=== PATIENT | female | born 1965 | race Caucasian/White ===

== ENCOUNTER → 2020-08-20 16:29 | Outpatient (BNVA) | payer OTHER, SELFPAY | PROVIDERS: PCP Internal Medicine; Visit Provider Physician Assistant Medical | DX: Z13.89 Encounter for screening for other disorder (principal) | CPT/HCPCS: 99213 ==

== ENCOUNTER 2020-08-23 14:31 | Outpatient (REF) | payer BC, SELFPAY ==
--- NOTE | 2020-08-23 | US_ITS ---
EXAMINATION: US RETROPERITONEAL LIMITED (RENAL ONLY) CLINICAL INFORMATION: Renal calculi. COMPARISON: Renal ultrasound dated 01/09/2020 TECHNIQUE: Real-time imaging of the kidneys. FINDINGS: RIGHT KIDNEY: 10.1 x 4.5 x 4.5 cm (SAG x AP x TRV). The kidney is normal in size, contour, and echogenicity. Renal cortical thickness is normal. No focal parenchymal lesions. 3 mm mm echogenic focus in the upper pole; 4 mm echogenic focus in the midpole; 4 mm echogenic focus in the lower pole, probably reflecting nonobstructing calculi. Mild right hydronephrosis. LEFT KIDNEY: 10.6 x 4.3 x 4.2 cm (SAG x AP x TRV). The kidney is normal in size, contour, and echogenicity. Renal cortical thickness is normal. No focal parenchymal lesions or hydronephrosis. Upper pole 3 mm, midpole 5 mm, lower pole small echogenic focus, probably reflecting nonobstructing renal calculi. No hydronephrosis. US/US renal BI IMPRESSION: Multiple bilateral renal calculi. There is mild right hydronephrosis, similar to previous.
== END 2020-08-23 14:32 | disposition home or self-care (01) ==
LOC: HO.US 14:31
PROVIDERS: Visit Provider Urology
DX: N13.2 Hydronephrosis with renal and ureteral calculous obstruction (principal)
CPT/HCPCS: 76775

== ENCOUNTER → 2020-09-16 13:54 | Outpatient (BNVA) | payer SELFPAY | PROVIDERS: Visit Provider Urology | DX: Z76.89 Persons encountering health services in other specified circumstances (principal) ==

== ENCOUNTER → 2020-10-21 16:11 | Outpatient (BNVA) | payer OTHER, SELFPAY | PROVIDERS: PCP Internal Medicine; Visit Provider Physician Assistant Medical | DX: Z13.89 Encounter for screening for other disorder (principal) | CPT/HCPCS: 99213 ==

== ENCOUNTER 2020-12-14 17:40 | Emergency (ER) | payer BC, SELFPAY ==
[2020-12-14 18:31] VITALS: BP 137/82; PULSE 57; RESP 15; TEMP 36.8; O2SAT 99; BMI 28.6
== END 2020-12-14 20:27 | disposition left against medical advice (07) ==
PROVIDERS: Emergency Provider Emergency Medicine; PCP Internal Medicine
DX: Z86.718 Personal history of other venous thrombosis and embolism (principal)
CPT/HCPCS: 99281; 99282

== ENCOUNTER 2020-12-15 09:11 | Outpatient (REF) | payer BC, SELFPAY ==
--- NOTE | ~2020-12-15 | US_ITS ---
EXAMINATION: US VENOUS ULTRASOUND WITH DOPPLER LOWER EXTREMITY, RIGHT CLINICAL INFORMATION: Right knee pain COMPARISON: None TECHNIQUE: Ultrasound of the deep veins is performed from the hip to the calf with compression sonography and color and pulse Doppler assessment. Spectral analysis with color-flow imaging is performed. FINDINGS: There is normal venous compression and respiratory variation and augmented flow. The visualized common femoral vein, superficial femoral vein, profunda femoral vein, popliteal vein, and the trifurcation region shows no evidence of deep venous thrombosis. There is no significant popliteal fossa cyst. No popliteal artery aneurysm. If the patient's symptoms persist, followup ultrasound in 5 days 7 days might be of value to exclude proximal propagation from a non-visualized calf vein. US/US venous duplex LE RT IMPRESSION: No acute DVT demonstrated in the right lower extremity.
--- NOTE | ~2020-12-15 | US_ITS ---
EXAMINATION: US SOFT TISSUE NECK CLINICAL INFORMATION: Localized swelling, mass and lump COMPARISON: None TECHNIQUE: Ultrasound of the right neck soft tissues is performed with high- frequency teixeira-scale imaging and color Doppler. FINDINGS: No lymphadenopathy is seen. No solid or cystic soft tissue mass is seen. US/US soft tiss head and/or neck IMPRESSION: No abnormality seen by ultrasound.
--- NOTE | ~2020-12-15 | XR_ITS ---
EXAMINATION: XR KNEE, RIGHT CLINICAL INFORMATION: Right knee pain mass and lump about the neck. COMPARISON: None TECHNIQUE: Four views of the right knee. Ultrasound soft tissue neck study of the head/neck FINDINGS: There is no evidence of acute fracture or dislocation of the right knee. There are some regions of mixed lucency and sclerosis seen about the distal femur and proximal tibia which appear to be postoperative in nature. Joint spaces are maintained. No effusion is seen. There is mild spurring at the patellofemoral joint. There is mild spurring about the medial joint space compartment. Targeted ultrasound evaluation of the right neck in area indicated by the patient did not show any evidence of abnormal lymph nodes or masses. Internal jugular vein is patent. Internal carotid artery is patent. XR/XR knee RT 4V IMPRESSION: Postsurgical change of the right knee with mild degenerative changes as described. No right neck ultrasound abnormality appreciated.
== END 2020-12-15 09:12 | disposition home or self-care (01) ==
LOC: HO.HMGCX 09:11
PROVIDERS: Visit Provider Nurse Practitioner Family
DX: M25.461 Effusion, right knee (principal); M25.561 Pain in right knee; R22.1 Localized swelling, mass and lump, neck; Z86.718 Personal history of other venous thrombosis and embolism
CPT/HCPCS: 73564; 76536; 93971

== ENCOUNTER → 2021-02-02 14:31 | Outpatient (BNVA) | payer OTHER, SELFPAY | PROVIDERS: PCP Internal Medicine; Visit Provider Physician Assistant Medical | DX: Z13.89 Encounter for screening for other disorder (principal) | CPT/HCPCS: 99213 ==

== ENCOUNTER 2021-02-14 15:43 | Outpatient (REF) | payer BC, SELFPAY ==
--- NOTE | ~2021-02-14 | MM_ITS ---
EXAMINATION: MM SCREENING DIGITAL BREAST TOMOSYNTHESIS, BILATERAL CLINICAL INFORMATION: Screening. Asymptomatic. The lifetime risk of breast cancer based on the Tyrer-Cuzick Model is 15%. COMPARISON: Mammography: 09/26/2018; outside mammography 04/03/2018, 03/25/2018 ([facility]); and mammography 02/21/2017 and 10/25/2011 TECHNIQUE: Digital breast tomosynthesis is performed in both the craniocaudal and mediolateral oblique views along with computer-aided detection (CAD). Synthesized 2D images are generated from the tomosynthesis. Additional left MLO view is provided. FINDINGS: The breasts are heterogeneously dense, which may obscure small masses (ACR BI-RADS breast composition Category c). There are no significant masses, abnormal calcifications, or other abnormalities. There is no developing density or interval mass or architectural abnormality. The axilla and skin contours are unremarkable. No significant changes. MM/MM tomosynthesis screening BI IMPRESSION: No mammographic evidence of malignancy. ASSESSMENT: BI-RADS 1: Negative RECOMMENDATION: Routine annual mammography screening. This patient's information was entered into a reminder system with a target due date for their next mammogram.
== END 2021-02-14 15:44 | disposition home or self-care (01) ==
LOC: HO.MAMMO 15:43
PROVIDERS: PCP Internal Medicine; Visit Provider Internal Medicine
DX: Z12.31 Encounter for screening mammogram for malignant neoplasm of breast (principal)
CPT/HCPCS: 77063; 77067

== ENCOUNTER → 2021-04-15 10:58 | Outpatient (BNVA) | payer OTHER, SELFPAY | PROVIDERS: PCP Internal Medicine; Visit Provider Physician Assistant Medical | DX: Z13.89 Encounter for screening for other disorder (principal) | CPT/HCPCS: 99213 ==

== ENCOUNTER 2021-04-15 14:29 | Outpatient (REF) | payer BC, SELFPAY ==
--- NOTE | ~2021-04-15 | US_ITS ---
EXAMINATION: US RETROPERITONEAL LIMITED (RENAL ONLY) CLINICAL INFORMATION: Calculus of kidney. COMPARISON: Renal ultrasound 08/23/2020 and 01/09/2020. CT abdomen and pelvis 06/06/2018. KUB 01/23/2018 and 01/02/2018. TECHNIQUE: Real-time imaging of the kidneys. FINDINGS: RIGHT KIDNEY: 10.0 x 5.2 x 5.0 cm (SAG x AP x TRV). The kidney is normal in size and contour. Renal cortical thickness is normal. No focal parenchymal lesions or hydronephrosis. There are echogenic foci seen in the mid pole, lower pole, and upper pole with mid pole and lower pole echogenic regions measuring approximately 2 mm in diameter and with an upper pole echogenic focus measuring approximately 3 mm in diameter. These are nonobstructing echogenic foci, and likely represent calculi. There is mild fullness of the right upper collecting system but without definite hydronephrosis appreciated. Appearance is unchanged. LEFT KIDNEY: 10.1 x 4.0 x 4.1 cm (SAG x AP x TRV). The kidney is normal in size, contour, and echogenicity. Renal cortical thickness is normal. No focal parenchymal lesions or hydronephrosis. 3 mm echogenic focus is seen within the mid pole as well as a 2 mm echogenic focus within the mid pole, likely representing nonobstructing calculi. US/US renal BI IMPRESSION: Bilateral nephrolithiasis with mild fullness of the right upper collecting system, similar to previous studies.
== END 2021-04-15 14:30 | disposition home or self-care (01) ==
LOC: HO.HMGCX 14:29
PROVIDERS: PCP Internal Medicine; Visit Provider Urology
DX: N20.0 Calculus of kidney (principal)
CPT/HCPCS: 76775

== ENCOUNTER → 2021-05-24 11:09 | Outpatient (BNVA) | payer BC, SELFPAY | PROVIDERS: PCP Internal Medicine; Visit Provider Urology ==

== ENCOUNTER → 2021-07-20 14:56 | Outpatient (BNVA) | payer OTHER, SELFPAY | PROVIDERS: PCP Internal Medicine; Visit Provider Physician Assistant Medical | DX: Z13.89 Encounter for screening for other disorder (principal) | CPT/HCPCS: 99213 ==

== ENCOUNTER 2021-09-05 | Outpatient (REF) | payer BC, SELFPAY | END 2021-09-05 00:01 | disposition home or self-care (01) | LOC: HO.LAB | PROVIDERS: Visit Provider Internal Medicine | DX: Z13.89 Encounter for screening for other disorder (principal) | CPT/HCPCS: C9803; U0003; U0005 ==

== ENCOUNTER 2021-11-11 14:17 | Outpatient (REF) | payer BC, SELFPAY ==
--- NOTE | ~2021-11-11 | US_ITS ---
EXAMINATION: US RETROPERITONEAL LIMITED (RENAL ONLY) CLINICAL INFORMATION: Calculus of kidney. COMPARISON: US retroperitoneal limited (renal only) 04/15/2021 and 08/23/2020. XR abdomen KUB 12/27/2016 and 05/24/2016. CT abdomen and pelvis without contrast 06/06/2018. TECHNIQUE: Real-time imaging of the kidneys. FINDINGS: RIGHT KIDNEY: 8.7 x 3.6 x 4.5 cm (SAG x AP x TRV). There is renal cortical thinning or scarring. There are multiple 2 stones measuring 3 mm in the midpole. There is mild fullness of the renal pelvis. This is similar to previous exams. No focal parenchymal lesions or hydronephrosis. LEFT KIDNEY: 9.9 x 4.6 x 4.6 cm (SAG x AP x TRV). The kidney is normal in size, contour, and echogenicity. Renal cortical thickness is normal. There are 3 stones measuring 2 to 3 mm in the midpole. No focal parenchymal lesions or hydronephrosis. US/US renal BI IMPRESSION: Right renal cortical thinning or scarring. Small bilateral renal stones.
== END 2021-11-11 14:18 | disposition home or self-care (01) ==
LOC: HO.HMGCX 14:17
PROVIDERS: PCP Internal Medicine; Visit Provider Urology
DX: N20.0 Calculus of kidney (principal); N28.89 Other specified disorders of kidney and ureter
CPT/HCPCS: 76775

== ENCOUNTER → 2021-11-18 08:45 | Outpatient (BNVA) | payer BC, SELFPAY | PROVIDERS: PCP Internal Medicine; Visit Provider Urology ==

== ENCOUNTER 2021-12-06 13:53 | Outpatient (REF) | payer OTHER, SELFPAY | END 2021-12-06 13:54 | disposition home or self-care (01) | LOC: WCCF 13:53 | PROVIDERS: PCP Internal Medicine; Visit Provider Physician Assistant Medical | DX: Z13.89 Encounter for screening for other disorder (principal) | CPT/HCPCS: 99213 ==

== ENCOUNTER 2021-12-07 09:57 | Outpatient (REF) | payer OTHER, SELFPAY ==
--- NOTE | ~2021-12-07 | US_ITS ---
EXAMINATION: US VENOUS ULTRASOUND WITH DOPPLER LOWER EXTREMITY, LEFT CLINICAL INFORMATION: Left leg pain. COMPARISON: None TECHNIQUE: Ultrasound of the deep veins is performed from the hip to the calf with compression sonography and color and pulse Doppler assessment. Spectral analysis with color-flow imaging is performed. FINDINGS: There is normal venous compression and respiratory variation and augmented flow. The visualized common femoral vein, superficial femoral vein, profunda femoral vein, popliteal vein, and the trifurcation region shows no evidence of deep venous thrombosis. There is no significant popliteal fossa cyst. If the patient's symptoms persist, followup ultrasound in 5 days 7 days might be of value to exclude proximal propagation from a non-visualized calf vein. US/US venous duplex LE LT IMPRESSION: No DVT demonstrated in the left lower extremity.
== END 2021-12-07 09:58 | disposition home or self-care (01) ==
LOC: HO.HMGCX 09:57
PROVIDERS: Visit Provider Physician Assistant
DX: M79.605 Pain in left leg (principal)
CPT/HCPCS: 93971

== ENCOUNTER 2022-04-09 10:09 | Emergency (ER) | payer BC, SELFPAY ==
--- NOTE | ~2022-04-09 | US_ITS ---
EXAMINATION: US PELVIS CLINICAL INFORMATION: Right lower quadrant, suprapubic abdominal pain. COMPARISON: CT of the abdomen and pelvis done earlier today. TECHNIQUE: Ultrasound of the pelvis is performed using both transabdominal and transvaginal transducers along with Doppler. Transvaginal imaging is performed due to inadequate visualization transabdominally. FINDINGS: Uterus: The uterus is anteverted and measures 7.2 x 3.4 x 4.7 cm. The cervix is closed, shows nonspecific linear echogenicities, may represent calcifications. The double wall endometrial thickness is 0.4 mm. The uterus is smooth in contour and has normal myometrial echogenicity. Solitary subcentimeter echogenic mass is identified to the left of the midline at the superior part of the body of the uterus, measures 0.7 x 0.7 x 0.7 cm, most consistent with a fibroid. Adnexa: Both ovaries are visualized. There is normal color flow to the adnexa. There is no ovarian torsion. There is no pelvic ascites or fluid collection. Right ovary measures 2.7 x 1.6 x 2.1 cm. 4.8 mL Left ovary measures 2.0 x 1.4 x 1.5 cm. 2.2 mL Both arterial as well as venous flow to both ovaries are well-maintained. US/US pelvic complete IMPRESSION: 1. Linear echogenic focus within the cervix which may represent calcifications. In addition, solitary subcentimeter echogenic mass is also identified within the uterus, most consistent with a fibroid., Otherwise unremarkable sonographic appearance of the uterus. 2. Morphologically unremarkable bilateral ovaries. 3. No evidence of any free fluid within the pelvis.
--- NOTE | ~2022-04-09 | US_ITS ---
EXAMINATION: US PELVIS CLINICAL INFORMATION: Right lower quadrant, suprapubic abdominal pain. COMPARISON: CT of the abdomen and pelvis done earlier today. TECHNIQUE: Ultrasound of the pelvis is performed using both transabdominal and transvaginal transducers along with Doppler. Transvaginal imaging is performed due to inadequate visualization transabdominally. FINDINGS: Uterus: The uterus is anteverted and measures 7.2 x 3.4 x 4.7 cm. The cervix is closed, shows nonspecific linear echogenicities, may represent calcifications. The double wall endometrial thickness is 0.4 mm. The uterus is smooth in contour and has normal myometrial echogenicity. Solitary subcentimeter echogenic mass is identified to the left of the midline at the superior part of the body of the uterus, measures 0.7 x 0.7 x 0.7 cm, most consistent with a fibroid. Adnexa: Both ovaries are visualized. There is normal color flow to the adnexa. There is no ovarian torsion. There is no pelvic ascites or fluid collection. Right ovary measures 2.7 x 1.6 x 2.1 cm. 4.8 mL Left ovary measures 2.0 x 1.4 x 1.5 cm. 2.2 mL Both arterial as well as venous flow to both ovaries are well-maintained. US/US pelvic ovarian doppler IMPRESSION: 1. Linear echogenic focus within the cervix which may represent calcifications. In addition, solitary subcentimeter echogenic mass is also identified within the uterus, most consistent with a fibroid., Otherwise unremarkable sonographic appearance of the uterus. 2. Morphologically unremarkable bilateral ovaries. 3. No evidence of any free fluid within the pelvis.
--- NOTE | ~2022-04-09 | CT_ITS ---
EXAMINATION: CT ABDOMEN AND PELVIS WITHOUT CONTRAST CLINICAL INFORMATION: Kidney pain. COMPARISON: CT scans dating between June 06, 2018 and December 07, 2008. TECHNIQUE: Multidetector volumetric imaging was performed from the superior aspect of the liver through the pubic symphysis. Sagittal and coronal reformatted images were obtained on the technologist's workstation. This CT examination was performed using dose optimization techniques as appropriate, variously including the following: *Automated exposure control *Adjustment of mA and/or kV according to patient size (this includes techniques or standardized protocols for targeted exams where dose is matched to indication/reason for exam; i.e. extremities or head) *Use of iterative reconstruction technique DLP: 588 mGy-cm FINDINGS: LUNG BASES: The lung bases appear clear, with no evidence of inflammation or nodules. LIVER, GALLBLADDER, AND BILIARY TREE: One or 2 subcentimeter benign simple hepatic cysts and/or hemangiomata, unchanged over almost 4 years. The liver otherwise appears unremarkable in size, shape, and attenuation. No suspicious focal hepatic lesion or biliary ductal dilatation is appreciated. Status post cholecystectomy. PANCREAS: Unremarkable SPLEEN: Unremarkable ADRENAL GLANDS: Unremarkable KIDNEYS AND URETERS: Similar appearance of bilateral renal cortical scars and punctate nonobstructing collecting system and/or papillary calcifications, right more than left. No hydronephrosis or hydroureter. BLADDER: Collapsed, therefore poorly evaluated. Grossly unremarkable. GASTROINTESTINAL TRACT/MESENTERY: Diverticulosis predominantly involving the sigmoid and descending colon, without evidence of diverticulitis. Normal-appearing distal ileum. No evidence of appendicitis. Mild, nonspecific griselda mesentery, with associated subcentimeter nodes, not significantly changed compared with May 2018. ABDOMINAL WALL: No significant hernia is appreciated. LYMPH NODES: No evidence of adenopathy by size criteria. VASCULAR: Unremarkable PELVIC VISCERA: Unremarkable OSSEOUS STRUCTURES: Unremarkable CT/CT abdomen pelvis wo con IMPRESSION: No acute finding. Similar appearance of bilateral renal cortical scars and punctate nonobstructing collecting system and/or papillary calcifications, right more than left, compared with most recent prior study dated June 06, 2018. No hydronephrosis or hydroureter.
--- NOTE | ~2022-04-09 | US_ITS ---
EXAMINATION: US PELVIS CLINICAL INFORMATION: Right lower quadrant, suprapubic abdominal pain. COMPARISON: CT of the abdomen and pelvis done earlier today. TECHNIQUE: Ultrasound of the pelvis is performed using both transabdominal and transvaginal transducers along with Doppler. Transvaginal imaging is performed due to inadequate visualization transabdominally. FINDINGS: Uterus: The uterus is anteverted and measures 7.2 x 3.4 x 4.7 cm. The cervix is closed, shows nonspecific linear echogenicities, may represent calcifications. The double wall endometrial thickness is 0.4 mm. The uterus is smooth in contour and has normal myometrial echogenicity. Solitary subcentimeter echogenic mass is identified to the left of the midline at the superior part of the body of the uterus, measures 0.7 x 0.7 x 0.7 cm, most consistent with a fibroid. Adnexa: Both ovaries are visualized. There is normal color flow to the adnexa. There is no ovarian torsion. There is no pelvic ascites or fluid collection. Right ovary measures 2.7 x 1.6 x 2.1 cm. 4.8 mL Left ovary measures 2.0 x 1.4 x 1.5 cm. 2.2 mL Both arterial as well as venous flow to both ovaries are well-maintained. US/US transvaginal IMPRESSION: 1. Linear echogenic focus within the cervix which may represent calcifications. In addition, solitary subcentimeter echogenic mass is also identified within the uterus, most consistent with a fibroid., Otherwise unremarkable sonographic appearance of the uterus. 2. Morphologically unremarkable bilateral ovaries. 3. No evidence of any free fluid within the pelvis.
[2022-04-09 10:48] VITALS: BP 152/88; PULSE 88; RESP 17; TEMP 36.6; O2SAT 97; BMI 26.2
[2022-04-09 11:34] LABS: MANUAL DIFF FLAG NO
[2022-04-09 11:36] LABS: Basophils Percent Auto 0.6 % (0-2); Eosinophils Absolute Auto 0.1 X10*3/uL (0.0-0.4); Eosinophils Percent Auto 1.6 % (0-4); Hematocrit 44.3 % (37.0-47.0); Hemoglobin 14.4 g/dl (12.0-16.0); Imm Gran Abs Auto 0.01 X10*3/uL (0.00-0.03); Imm Gran Pct Auto 0.2 % (0.0-0.4); Lymphocytes Absolute Auto 1.1 X10*3/uL (1.2-4.9); Lymphocytes Percent Auto 20.8 % (20-40); Mean Corpuscular HGB Conc 32.5 g/dl (31.0-35.0); Mean Corpuscular Hemoglobin 29.4 pg (27.0-33.0); Mean Corpuscular Volume 90.6 fL (80.0-98.0); Mean Platelet Volume 9.5 fL (9.4-12.3); Monocytes Absolute Auto 0.4 X10*3/uL (0.1-1.2); Monocytes Percent Auto 7.4 % (2-11); Neutrophils Absolute Auto 3.6 x10*3/uL (2.0-8.3); Neutrophils Percent Auto 69.4 % (45-73); Platelet Count 192 X10*3/uL (160-400); Red Blood Count 4.89 X10*6/uL (4.20-5.50); Red Cell Distribution Width 12.7 % (11.0-16.0); White Blood Count 5.1 X10*3/uL (4.8-10.8)
[2022-04-09 11:53] LABS: Alanine Aminotransferase 19 U/L (0-31); Albumin Level 4.6 g/dL (3.5-5.0); Alkaline Phosphatase 84 U/L (39-117); Anion Gap 14 (12-20); Aspartate Amino Transferase 17 U/L (5-31); Bilirubin Total 0.5 mg/dL (0.0-1.0); Blood Urea Nitrogen 18 mg/dL (9-16); Calcium 9.6 mg/dL (8.4-10.2); Carbon Dioxide 27 mmol/L (22-29); Chloride 104 mmol/L (96-108); Creatinine Clr Calc Pharmacy 43.1; Estimated Glomerular Filt Rate 37; Glucose Random 94 mg/dL (60-115); Potassium 4.2 mmol/L (3.3-5.1); Sodium 141 mmol/L (135-145); Total Protein 7.2 g/dL (6.5-8.0)
--- NOTE | 2022-04-09 12:36 | ED_ITS ---
HPI - Abdominal Pain General Chief Complaint: General Medical Stated Complaint: Kidney stone Time Seen by Provider: 04/09/22 10:58 Source: patient Mode of arrival: ambulatory Limitations: no limitations History of Present Illness HPI narrative: 56-year-old female with a past medical history of DVT, CKD, medullary sponge kidney disease, and kidney stones being followed by Urology who has had stents and lithotripsy in the past presenting to the ED with complaints of ?kidney pain?. She reports that she started developing a suprapubic abdominal pain/bilateral flank pain/lower back pain on and she feels like it is not her normal kidney pain. She reports associated nausea, chest congestion/chest discomfort/sob and cough along with ear pain. She reports that the chest discomfort/SOB has resolved. She denies any fevers, chills, dizziness, headaches, sore throat, trouble swallowing or breathing, dyspnea on exertion, orthopnea, palpitations, paresthesias, dysuria, hematuria, abnormal vaginal discharge, black or bloody stools, recent travel or sick contacts, rashes, lower extremity edema, calf tenderness, recent falls or any other symptoms complaints or concerns at this time. MD elicited complaint: abdominal pain and flank pain Pertinent past history: kidney stones Onset (ago): day(s) (3) Pain Consistency: constant Location: L flank, R flank and suprapubic Severity: moderate Quality: aching Radiation: back Exacerbating factors: nothing Relieving factors: nothing Context: other (History of CKD and kidney stones) Associated symptoms: nausea Related Data Home Medications Medication Instructions Recorded Confirmed sertraline 50 mg tablet 50 mg PO DAILY 09/16/20 11/18/21 gabapentin 100 mg capsule mg PO 12/14/20 11/18/21 norethindrone (contraceptive) 0.35 0.35 mg PO DAILY 12/14/20 11/18/21 mg tablet tamsulosin 0.4 mg capsule 0.4 mg PO BEDTIME 12/14/20 11/18/21 tramadol 50 mg tablet 50 mg PO PRN 12/14/20 11/18/21 cyclobenzaprine 10 mg tablet 10 mg PO BEDTIME 05/24/21 11/18/21 Previous Rx's Medication Instructions Recorded terazosin 1 mg capsule 1 mg PO BEDTIME 30 days #30 caps 09/16/20 prednisone 20 mg tablet 20 mg PO DAILY 9 days #18 tabs 12/15/20 ondansetron HCl 4 mg tablet 4 mg PO Q8H PRN nausea and 04/13/21 (Zofran) vomiting 5 days #15 tabs allopurinol 100 mg tablet 100 mg PO DAILY 90 days #90 tabs 05/24/21 pyridoxine (vitamin B6) 100 mg 100 mg PO DAILY 90 days #90 tabs 05/24/21 tablet ondansetron 4 mg disintegrating 4 mg PO Q8H #14 tabs 04/09/22 tablet oxycodone 5 mg tablet 5 mg PO Q6H PRN pain #14 tabs 04/09/22 Allergies Allergy/AdvReac Type Severity Reaction Status Date / Time metoclopramide [From Reglan] Allergy Severe CONVULSIONS Verified 12/07/21 08:11 bee pollen [BEE STINGS] Allergy Intermediate SWELLING Verified 12/07/21 08:11 Iodinated Contrast Media Allergy Intermediate HIVES Verified 12/07/21 08:11 [IV Dye, Iodine Containing] amoxicillin Allergy Unknown unknown Verified 12/07/21 08:11 Cephalosporins AdvReac Intermediate VOMITING Verified 12/07/21 08:11 erythromycin base AdvReac Intermediate VOMITING Verified 12/07/21 08:11 [Erythromycin Base] Penicillins AdvReac Intermediate VOMITING Verified 12/07/21 08:11 Review of Systems Review of Systems Constitutional : No Fever, No Chills, No Night Sweats, + Fatigue, + Malaise Cardiovascular : No Chest Pain, No SOB Respiratory : + Cough, No Sputum, No Wheezing, No Dyspnea Gastrointestinal : + Nausea, + abdominal pain, + Flank pain, No Vomiting, No D iarrhea, No Hematochezia, No Melena Genitourinary : + Flank pain, No irregular bleeding, No Dysuria, No Urinary Frequency, No Hematuria,No Urinary Incontinence, No Urgency Musculoskeletal : No joint pain, + Myalgias, No Joint Swelling Skin : No Skin Lesions, No rash Neuro : No Weakness, No Numbness, No Paresthesias, No Loss of Consciousness, No Dizziness, No Headache Heme/Lymph: No Lymphadenopathy Endocrine : No Temperature Intolerance Yes all other systems are reviewed and are negative PMFSH Past Medical History Attestation statement: The following information was validated with the patient. Source: old records reviewed and nursing notes reviewed Medical History Chronic kidney disease DVT (deep venous thrombosis) Surgical History History of ankle surgery Social History Social History Advance Directives: Yes Advance Directives Information Provided: Yes Advance Directives on File: No Physical Exam ED Vital Signs: Vital Signs - 24 hr 04/09/22 10:48 Temperature 98 F Pulse Rate 88 Respiratory Rate 17 Blood Pressure 152/88 H Pulse Oximetry 97 Oxygen Delivery Method Room Air BMI result Body Mass Index 26.2 vital signs have been reviewed as normal and appeared to be correct. Blood pressure 152/88. Heart rate normal. Respiration rate normal. Temperature normal. Oxygen saturation normal. Appearance: Alert. Oriented X3. No acute distress. Head: Normal external exam. Normocephalic. Atraumatic. Eyes: PERRLA. EOMI. Conjunctiva and sclera normal. Eyelids normal. ENT: EAC normal. TM's Normal. Pharynx normal. Uvula midline. Moist mucous membranes. No lesions/ulcerations or masses noted on the tongue. Normal voice. No trismus noted. No drooling noted. No muffled voice noted. Neck: Normal inspection. Neck supple. FROM. No adenopathy. Thyroid Normal. No tracheal deviation noted. No crepitus is noted. No meningeal signs. CVS: Normal heart rate and rhythm. Heart sound normal. Pulses normal throughout. No murmurs/rales/gallops. Respiratory: No respiratory distress. Painless inspiration. Breath sounds normal. No wheezes/rales/rhonchi noted. Chest nontender. No crepitus is noted. No accessory muscle usage noted or decreased air movement noted. Abdomen: Soft and mild ttp to ruq and suprapubic area. Bowel sounds normal in all 4 quadrants. No distention noted. No organomegaly noted. No visible injury noted. Back: + bilateral CVA tenderness. Full range of motion noted. Nontender. No signs of trauma. Patient neuro intact bilaterally and distally on all 4 extremities. Patient's reflexes intact bilaterally and distally on all 4 extremities. No rashes/lesion/induration/fluctuance or signs of infection noted. Skin: Skin warm and dry. Normal skin color. Normal skin turgor. No rashes/lesions/lacerations noted. Extremities: No lower extremity edema. No calf tenderness is noted. Extremities exhibit normal range of motion and nontender. Neuro: Oriented X 3. No motor deficit. No sensory deficit. Reflexes normal. Normal steady gait. No focal neuro deficits noted. CN's II-XII intact bilaterally? Vascular: + radial pulses/+ 2 distal pedal pulses/+2 dorsalis pedis b/l. Normal cap refill. No cyanosis noted to upper extremity nails and lower extremity toes nails. Course Course Course Narrative: 12:30pm - 56-year-old female with a past medical history of DVT, CKD, medullary sponge kidney disease, and kidney stones being followed by Urology who has had stents and lithotripsy in the past presenting to the ED with complaints of ?kidney pain?. She reports that she started developing a suprapubic abdominal pain/bilateral flank pain/lower back pain on and she feels like it is not her normal kidney pain. She reports associated nausea, chest congestion/chest discomfort/sob and cough along with ear pain. She reports that the chest discomfort/SOB has resolved. Labs were obtained while the patient was in triage and patient has chronic CKD which is similar compared to prior BUN 18/creatinine 1.48. Otherwise all other labs are within normal limits. Plan: CT scan of abd/pelvis without contrast. Will order UA. 5 mg of oxycodone and IV fluids and re-evaluate. Reevaluation(s) Reevaluation #1: - urine revealed trace of blood and trace of epithelial cells with 5-9 red blood cells. No nitrates or leukocytes therefore will not treat at this time most likely a dirty catch. - CT scan abdomen pelvis without IV contrast revealed chronic changes no acute processes were noted. - therefore I ordered a duplex ultrasound/pelvic ultrasound revealed possible fibroid otherwise no other acute processes. - therefore I discussed this case with Dr. Garcia he reported that he does not believe her presentation is obgyn hospitalist physician related he reports that the ultrasound is showing a small myoma which is incidental finding and she needs non emergent outpatient follow-up therefore will refer her to OBGYN. Will treat symptomatic instruct to return if any new or worsening symptoms. Patient understands agrees with this plan. Time: 15:50 MDM - Abdominal Pain Medical Records Attestation: I reviewed the patient's medical records. Lab Data Attestation: I reviewed the patient's lab results. Result diagrams: 04/09/22 11:29 04/09/22 11:29 Labs: Lab Results 04/09/22 04/09/22 04/09/22 Range/Units 11:29 11:29 13:01 WBC 5.1 (4.8-10.8) X10*3/uL RBC 4.89 (4.20-5.50) X10*6/uL Hgb 14.4 (12.0-16.0) g/dl Hct 44.3 (37.0-47.0) % MCV 90.6 (80.0-98.0) fL MCH 29.4 (27.0-33.0) pg MCHC 32.5 (31.0-35.0) g/dl RDW 12.7 (11.0-16.0) % Plt Count 192 (160-400) X10*3/uL MPV 9.5 (9.4-12.3) fL Immature Gran % (Auto) 0.2 (0.0-0.4) % Neut % (Auto) 69.4 (45-73) % Lymph % (Auto) 20.8 (20-40) % Pender % (Auto) 7.4 (2-11) % Eos % (Auto) 1.6 (0-4) % Baso % (Auto) 0.6 (0-2) % Lymph # (Auto) 1.1 L (1.2-4.9) X10*3/uL Pender # (Auto) 0.4 (0.1-1.2) X10*3/uL Eos # (Auto) 0.1 (0.0-0.4) X10*3/uL Baso # (Auto) 0.0 (0.0-0.2) X10*3/uL Abs Immat Gran (auto) 0.01 (0.00-0.03) X10*3/uL Absolute Neuts (auto) 3.6 (2.0-8.3) x10*3/uL Absolute Nucleated RBC 0.000 (0.0-0.012) X10*3/uL Nucleated RBC % (auto) 0.0 (0.0-0.2) /100WBC Sodium 141 (135-145) mmol/L Potassium 4.2 (3.3-5.1) mmol/L Chloride 104 (96-108) mmol/L Carbon Dioxide 27 (22-29) mmol/L Anion Gap 14 (12-20) BUN 18 H (9-16) mg/dL Creatinine 1.48 H (0.5-1.4) mg/dL Estim Creat Clear Calc 43.1 Estimated GFR 37 Random Glucose 94 (60-115) mg/dL Calcium 9.6 (8.4-10.2) mg/dL Total Bilirubin 0.5 (0.0-1.0) mg/dL AST 17 (5-31) U/L ALT 19 (0-31) U/L Alkaline Phosphatase 84 (39-117) U/L Total Protein 7.2 (6.5-8.0) g/dL Albumin 4.6 (3.5-5.0) g/dL Urine Color Urine Appearance Urine pH (5.0-8.0) Ur Specific [place] (1.005-1.025) Urine Protein (NEG-TRACE) MG/DL Urine Glucose (UA) (NEG) MG/DL Urine Ketones (NEG) MG/DL Urine Blood (NEG) Urine Nitrite (NEG) Ur Leukocyte Esterase (NEG) Urine RBC (0) /HPF Urine WBC (0-4) /HPF Ur Squamous Epith Cells /LPF Urine Bacteria /LPF COVID-19 (JOSE) Negative (Negative) COVID-19 Clin Com See Note 04/09/22 Range/Units 13:01 WBC (4.8-10.8) X10*3/uL RBC (4.20-5.50) X10*6/uL Hgb (12.0-16.0) g/dl Hct (37.0-47.0) % MCV (80.0-98.0) fL MCH (27.0-33.0) pg MCHC (31.0-35.0) g/dl RDW (11.0-16.0) % Plt Count (160-400) X10*3/uL MPV (9.4-12.3) fL Immature Gran % (Auto) (0.0-0.4) % Neut % (Auto) (45-73) % Lymph % (Auto) (20-40) % Pender % (Auto) (2-11) % Eos % (Auto) (0-4) % Baso % (Auto) (0-2) % Lymph # (Auto) (1.2-4.9) X10*3/uL Pender # (Auto) (0.1-1.2) X10*3/uL Eos # (Auto) (0.0-0.4) X10*3/uL Baso # (Auto) (0.0-0.2) X10*3/uL Abs Immat Gran (auto) (0.00-0.03) X10*3/uL Absolute Neuts (auto) (2.0-8.3) x10*3/uL Absolute Nucleated RBC (0.0-0.012) X10*3/uL Nucleated RBC % (auto) (0.0-0.2) /100WBC Sodium (135-145) mmol/L Potassium (3.3-5.1) mmol/L Chloride (96-108) mmol/L Carbon Dioxide (22-29) mmol/L Anion Gap (12-20) BUN (9-16) mg/dL Creatinine (0.5-1.4) mg/dL Estim Creat Clear Calc Estimated GFR Random Glucose (60-115) mg/dL Calcium (8.4-10.2) mg/dL Total Bilirubin (0.0-1.0) mg/dL AST (5-31) U/L ALT (0-31) U/L Alkaline Phosphatase (39-117) U/L Total Protein (6.5-8.0) g/dL Albumin (3.5-5.0) g/dL Urine Color YELLOW Urine Appearance HAZY Urine pH 6.5 (5.0-8.0) Ur Specific [place] 1.015 (1.005-1.025) Urine Protein NEG (NEG-TRACE) MG/DL Urine Glucose (UA) NEG (NEG) MG/DL Urine Ketones NEG (NEG) MG/DL Urine Blood TRACE (NEG) Urine Nitrite NEG (NEG) Ur Leukocyte Esterase NEG (NEG) Urine RBC 5-9 H (0) /HPF Urine WBC 0-2 (0-4) /HPF Ur Squamous Epith Cells TRACE /LPF Urine Bacteria NONE /LPF COVID-19 (JOSE) (Negative) COVID-19 Clin Com Imaging Data CT scan abdomen pelvis without IV contrast: Attestation: I personally reviewed and interpreted this imaging study as follows: Radiologist's impression: FINDINGS: LUNG BASES: The lung bases appear clear, with no evidence of inflammation or nodules.? LIVER, GALLBLADDER, AND BILIARY TREE: One or 2 subcentimeter benign simple hepatic cysts and/or hemangiomata, unchanged over almost 4 years. The liver otherwise appears unremarkable in size, shape, and attenuation. No suspicious focal hepatic lesion or biliary ductal dilatation is appreciated. Status post cholecystectomy.? PANCREAS: Unremarkable? SPLEEN: Unremarkable? ADRENAL GLANDS: Unremarkable? KIDNEYS AND URETERS: Similar appearance of bilateral renal cortical scars and punctate nonobstructing collecting system and/or papillary calcifications, right more than left. No hydronephrosis or hydroureter. BLADDER: Collapsed, therefore poorly evaluated. Grossly unremarkable.? GASTROINTESTINAL TRACT/MESENTERY: Diverticulosis predominantly involving the sigmoid and descending colon, without evidence of diverticulitis. Normal-appearing distal ileum. No evidence of appendicitis. Mild, nonspecific griselda mesentery, with associated subcentimeter nodes, not significantly changed compared with May 2018. ABDOMINAL WALL: No significant hernia is appreciated.? LYMPH NODES: No evidence of adenopathy by size criteria. VASCULAR: Unremarkable PELVIC VISCERA: Unremarkable OSSEOUS STRUCTURES: Unremarkable? CT/CT abdomen pelvis wo con IMPRESSION: ? No acute finding. ? Similar appearance of bilateral renal cortical scars and punctate nonobstructing collecting system and/or papillary calcifications, right more than left, compared with most recent prior study dated June 06, 2018. No hydronephrosis or hydroureter. Pelvic/Doppler ultrasound: Attestation: I personally reviewed and interpreted this imaging study as follows: Radiologist's impression: FINDINGS: Uterus: The uterus is anteverted and measures 7.2 x 3.4 x 4.7 cm.? The cervix is closed, shows nonspecific linear echogenicities, may represent calcifications. The double wall endometrial thickness is 0.4 mm.? The uterus is smooth in contour and has normal myometrial echogenicity. ? Solitary subcentimeter echogenic mass is identified to the left of the midline at the superior part of the body of the uterus, measures 0.7 x 0.7 x 0.7 cm, most consistent with a fibroid. Adnexa: Both ovaries are visualized. There is normal color flow to the adnexa. There is no ovarian torsion.? There is no pelvic ascites or fluid collection. Right ovary measures 2.7 x 1.6 x 2.1 cm. 4.8 mL Left ovary measures 2.0 x 1.4 x 1.5 cm. 2.2 mL Both arterial as well as venous flow to both ovaries are well-maintained. US/US pelvic ovarian doppler IMPRESSION: ? 1. Linear echogenic focus within the cervix which may represent calcifications. In addition, solitary subcentimeter echogenic mass is also identified within the uterus, most consistent with a fibroid., Otherwise unremarkable sonographic appearance of the uterus. 2. Morphologically unremarkable bilateral ovaries. 3. No evidence of any free fluid within the pelvis. Discharge Plan Discharge Clinical Impression: CKD (chronic kidney disease), Diverticulosis, Uterine myoma Patient Disposition: Home, Self-Care Instructions: Diverticulosis (ED) Prescriptions: New ondansetron 4 mg tablet,disintegrating 4 mg PO Q8H Qty: 14 0RF oxycodone 5 mg tablet 5 mg PO Q6H PRN (Reason: pain) Qty: 14 0RF Rx Instructions: Partial Fill upon patient request. No Action prednisone 20 mg tablet 20 mg PO DAILY 9 Days Qty: 18 0RF Rx Instructions: 3 tabs/60mg for 3 days 2 tabs/40mg for 3 days 1 tab/20mg for 3 days ondansetron HCl [Zofran] 4 mg tablet 4 mg PO Q8H PRN (Reason: nausea and vomiting) 5 Days Qty: 15 0RF tamsulosin 0.4 mg capsule 0.4 mg PO BEDTIME tramadol 50 mg tablet 50 mg PO PRN norethindrone (contraceptive) 0.35 mg tablet 0.35 mg PO DAILY gabapentin 100 mg capsule PO sertraline 50 mg tablet 50 mg PO DAILY terazosin 1 mg capsule 1 mg PO BEDTIME 30 Days Qty: 30 0RF pyridoxine (vitamin B6) 100 mg tablet 100 mg PO DAILY 90 Days Qty: 90 1RF cyclobenzaprine 10 mg tablet 10 mg PO BEDTIME allopurinol 100 mg tablet 100 mg PO DAILY 90 Days Qty: 90 1RF Referrals: Noe Salcedo MD [Primary Care Provider] - 2 days Kenneth Garcia MD [Physician] - 1 week (Call to make a follow-up appointment within the next 1-2 weeks) Stand Alone Forms: Work/School Release
[2022-04-09] MEDS: 0.9 % Sodium Chloride 1,000 ML 999 ML IVCONT (12:59)
[2022-04-09] MEDS: oxyCODONE HCl Immed Release 5 MG TABLET PO (13:08)
[2022-04-09] MEDS: ondansetron HCL 4 MG/2 ML VIAL IVPUSH (13:15)
[2022-04-09 13:17] LABS: Appearance Urine HAZY; Color Urine YELLOW; Glucose Urine UA NEG (NEG); Leukocyte Esterase Urine NEG (NEG); Nitrite Urine NEG (NEG); PH 6.5 (5.0-8.0); Specific Gravity - Urine 1.015 (1.005-1.025); UACC Culture Trigger NO; Urine Blood TRACE (NEG); Urine Ketones NEG (NEG); Urine Protein NEG (NEG-TRACE)
[2022-04-09 13:31] LABS: COVID-19 Test Negative (Negative)
[2022-04-09 13:33] LABS: Squamous Epithelial Cell Urine TRACE /LPF; WBC Urine 0-2 /HPF (0-4)
[2022-04-09] MEDS: Acetaminophen 325 MG TABLET 975 MG PO (13:40)
--- NOTE | 2022-04-09 15:45 | P.CONOB_ITS ---
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 She reports that the chest discomfort/SOB has resolved.? The workup done emergency room included a CBC which was normal, chemistry which showed creatinine of 1.48, and UA positive for hematuria. CT of abdomen pelvis showed the following: Similar appearance of bilateral renal cortical scars and punctate nonobstructing collecting system and/or papillary calcifications, right more than left, compared with most recent prior study dated June 06, 2018. No hydronephrosis or hydroureter. Pelvic ultrasound showed the followin. Linear echogenic focus within the cervix which may represent calcifications. In addition, solitary subcentimeter echogenic mass is also identified within the uterus, most consistent with a fibroid., Otherwise unremarkable sonographic appearance of the uterus. 2. Morphologically unremarkable bilateral ovaries. 3. No evidence of any free fluid within the pelvis. cc:: CC: OB PMFSH Past Medical History Medical History Chronic kidney disease DVT (deep venous thrombosis) Surgical History Surgical History History of ankle surgery Social History Social History Advance Directives: Yes Advance Directives Information Provided: Yes Advance Directives on File: No Meds Allergies Allergy/AdvReac Type Severity Reaction Status Date / Time metoclopramide [From Reglan] Allergy Severe CONVULSIONS Verified 12/07/21 08:11 bee pollen [BEE STINGS] Allergy Intermediate SWELLING Verified 12/07/21 08:11 Iodinated Contrast Media Allergy Intermediate HIVES Verified 12/07/21 08:11 [IV Dye, Iodine Containing] amoxicillin Allergy Unknown unknown Verified 12/07/21 08:11 Cephalosporins AdvReac Intermediate VOMITING Verified 12/07/21 08:11 erythromycin base AdvReac Intermediate VOMITING Verified 12/07/21 08:11 [Erythromycin Base] Penicillins AdvReac Intermediate VOMITING Verified 12/07/21 08:11 Home Medications Medication Instructions Recorded Confirmed Last Taken Type sertraline 50 mg tablet 50 mg PO DAILY 09/16/20 11/18/21 Unknown History gabapentin 100 mg capsule mg PO 12/14/20 11/18/21 Unknown History norethindrone (contraceptive) 0.35 0.35 mg PO DAILY 12/14/20 11/18/21 Unknown History mg tablet tamsulosin 0.4 mg capsule 0.4 mg PO BEDTIME 12/14/20 11/18/21 Unknown History tramadol 50 mg tablet 50 mg PO PRN 12/14/20 11/18/21 Unknown History cyclobenzaprine 10 mg tablet 10 mg PO BEDTIME 05/24/21 11/18/21 Unknown History 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 Physical Exam Vitals Vital signs: Temp Pulse Resp BP Pulse Ox O2 Del Method 98 F 88 17 152/88 H 97 04/09/22 10:48 04/09/22 10:48 04/09/22 10:48 04/09/22 10:48 04/09/22 10:48 04/09/22 10:48 BMI result Body Mass Index 26.2 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 - Results Labs CBC & Chem 7: 04/09/22 11:29 04/09/22 11:29 Labs: Short CBC 04/09/22 Range/Units 11:29 WBC 5.1 (4.8-10.8) X10*3/uL Hgb 14.4 (12.0-16.0) g/dl Hct 44.3 (37.0-47.0) % Plt Count 192 (160-400) X10*3/uL BMP 04/09/22 11:29 Sodium 141 Potassium 4.2 Chloride 104 Carbon Dioxide 27 BUN 18 H Creatinine 1.48 H Calcium 9.6 Liver Function 04/09/22 Range/Units 11:29 Total Bilirubin 0.5 (0.0-1.0) mg/dL AST 17 (5-31) U/L ALT 19 (0-31) U/L Alkaline Phosphatase 84 (39-117) U/L Albumin 4.6 (3.5-5.0) g/dL Urine 04/09/22 Range/Units 13:01 Urine Color YELLOW Urine Appearance HAZY Urine pH 6.5 (5.0-8.0) Ur Specific [place] 1.015 (1.005-1.025) Urine Protein NEG (NEG-TRACE) MG/DL Urine Glucose (UA) NEG (NEG) MG/DL Imaging CT scan - pelvis: Radiologist's impression: ITS Impressions Abdomen/Pelvis CT 04/09/22 12:50 IMPRESSION: No acute finding. Similar appearance of bilateral renal cortical scars and punctate nonobstructing collecting system and/or papillary calcifications, right more than left, compared with most recent prior study dated June 06, 2018. No hydronephrosis or hydroureter. Doppler Study Ultrasound 04/09/22 14:17 IMPRESSION: 1. Linear echogenic focus within the cervix which may represent calcifications. In addition, solitary subcentimeter echogenic mass is also identified within the uterus, most consistent with a fibroid., Otherwise unremarkable sonographic appearance of the uterus. 2. Morphologically unremarkable bilateral ovaries. 3. No evidence of any free fluid within the pelvis. Pelvis Ultrasound 04/09/22 14:17 IMPRESSION: 1. Linear echogenic focus within the cervix which may represent calcifications. In addition, solitary subcentimeter echogenic mass is also identified within the uterus, most consistent with a fibroid., Otherwise unremarkable sonographic appearance of the uterus. 2. Morphologically unremarkable bilateral ovaries. 3. No evidence of any free fluid within the pelvis. Assessment and Plan (1) Uterine myoma: Status: Acute Plan Recommended to LYLA Leahy in the emergency room the following: The patient needs a follow-up outpatient appointment regarding the subcm myoma identified on pelvic ultrasound. I spent a total of 20 minutes reviewing the chart, communicating with the ER provider and documenting in the medical record
== END 2022-04-09 16:16 | disposition home or self-care (01) ==
PROVIDERS: Physician Assistant Medical; Emergency Provider Student in an Organized Health Care Education/Training Program; PCP Internal Medicine
DX: N18.9 Chronic kidney disease, unspecified (principal); K57.30 Diverticulosis of large intestine without perforation or abscess without bleeding; D25.9 Leiomyoma of uterus, unspecified; R10.9 Unspecified abdominal pain; M54.50 Low back pain, unspecified; R11.0 Nausea; R06.02 Shortness of breath; R05.9 Cough, unspecified; R07.89 Other chest pain; H92.09 Otalgia, unspecified ear; Z20.822 Contact with and (suspected) exposure to COVID-19; Z86.718 Personal history of other venous thrombosis and embolism; Z79.899 Other long term (current) drug therapy
CPT/HCPCS: 36415; 74176; 76830; 76856; 80053; 81001; 85025; 87635; 93975; 96360; 96374; 96375; 99283; 99284; J2405

== ENCOUNTER 2022-05-08 09:54 | Outpatient (REF) | payer BC, SELFPAY ==
--- NOTE | ~2022-05-08 | US_ITS ---
EXAMINATION: US RETROPERITONEAL LIMITED (RENAL ONLY) CLINICAL INFORMATION: Calculus of kidney. COMPARISON: CT abdomen and pelvis 04/09/2022. Renal ultrasound 11/11/2021 and 04/15/2021. TECHNIQUE: Real-time imaging of the kidneys. FINDINGS: RIGHT KIDNEY: 10.8 x 3.9 x 4.0 cm (SAG x AP x TRV). The kidney is normal in size and contour. There is increased renal cortical echogenicity. No focal parenchymal lesions or hydronephrosis. At the upper pole, 3 mm and 3 mm nonobstructing calculi are seen. At the interpolar aspect, 3 mm and 2 mm nonobstructing calculi are seen. At the lower pole, a 2 mm nonobstructing calculus is seen. LEFT KIDNEY: 11.0 x 4.9 x 4.3 cm (SAG x AP x TRV). The kidney is normal in size, contour, and echogenicity. Renal cortical thickness is normal. No focal parenchymal lesions. There is pelviectasis, without heaven hydronephrosis. At the upper pole, a 7 mm nonobstructing calculus is seen. At the interpolar aspect, 4 mm and 5 mm nonobstructing calculi are seen. At the lower pole, a 4 mm nonobstructing calculus is seen. US/US renal BI IMPRESSION: 1. Multiple nonobstructing renal calculi are seen, as detailed. 2. There is left renal pelviectasis. No heaven hydronephrosis is noted bilaterally.
== END 2022-05-08 09:55 | disposition home or self-care (01) ==
LOC: HO.US 09:54
PROVIDERS: Visit Provider Urology
DX: N20.0 Calculus of kidney (principal)
CPT/HCPCS: 76775

== ENCOUNTER 2022-07-10 08:06 | Day surgery (SDC) | payer BC, SELFPAY ==
[2022-07-05 15:06] VITALS: BMI 28.6
[2022-07-10] VITALS (17 sets, daily range): BP systolic 96–144; BP diastolic 63–90; PULSE 46–102; RESP 16–24; TEMP 36.1–36.9; O2SAT 92–100; BMI 28.3
--- NOTE | ~2022-07-10 | FL_ITS ---
EXAMINATION: XR FLUOROSCOPY WITH IMAGES CLINICAL INFORMATION: Cysto, ureteroscopy, retro, laser, stent left COMPARISON: CT abdomen and pelvis 04/09/2022 TECHNIQUE: Fluoroscopy performed by Dr. Art Cutler. Fluoroscopy time: 51 seconds. Cumulative Dose: 11.25 mGy. Images: 4. FINDINGS: There is guidewire is then seen in left collecting system and ureter. There is no hydronephrosis. No extravasation of contrast. FL/FL guidance in OR IMPRESSION: Fluoroscopy for urologic procedures.
--- NOTE | 2022-07-10 09:26 | HO.ANESPROP2 ---
HPI - Anesthesia Eval Consult details Narrative: Left nephrolithiasis PMFSH Active Problems Active Problems: All Active Problems (Updated 07/05/22 @ 15:01 by Rena Izaguirre RN) Nephrolithiasis (Acute) Weak urinary stream (Acute) Neck swelling (Acute) Posterior knee pain (Acute) Swollen R knee (Acute) Medullary sponge kidney (Acute) COVID-19 (Acute) Pain in left leg (Acute) Uterine myoma (Acute) DVT (deep venous thrombosis) (Acute) Chronic kidney disease (Acute) Past Medical History Medical History Chronic kidney disease DVT (deep venous thrombosis) History of COVID-19 Medullary sponge kidney Renal calculi Family History Family history of problems with anesthesia: No Surgical History Surgical History History of ankle surgery Hx of cystoscopy Hx of lithotripsy History of Problems with Anesthesia: No Social History Social History Patient Tobacco Use Status: Never used Tobacco Use of substances other than those prescribed or required for medical reasons: No Are you DNR?: No Advance Directives: No Advance Directives Information Provided: Yes Meds Allergies Allergy/AdvReac Type Severity Reaction Status Date / Time metoclopramide [From Reglan] Allergy Severe CONVULSIONS Verified 05/23/22 09:35 amoxicillin Allergy Intermediate Vomiting Verified 07/05/22 14:57 bee pollen [BEE STINGS] Allergy Intermediate SWELLING Verified 05/23/22 09:35 Iodinated Contrast Media Allergy Intermediate HIVES Verified 05/23/22 09:35 [IV Dye, Iodine Containing] Cephalosporins AdvReac Intermediate VOMITING Verified 05/23/22 09:35 erythromycin base AdvReac Intermediate VOMITING Verified 05/23/22 09:35 [Erythromycin Base] Penicillins AdvReac Intermediate VOMITING Verified 05/23/22 09:35 Home Medications Medication Instructions Recorded Confirmed Last Taken Type sertraline 50 mg tablet 50 mg PO DAILY 09/16/20 11/18/21 Unknown History tramadol 50 mg tablet 50 mg PO PRN 12/14/20 11/18/21 Unknown History Exam Exam Date and Time: July 10, 2022 0926 Height,Weight and Vital Signs: Height 5 ft 5 in Weight 77.111 kg Last Vital Signs Temp 98.5 F 07/10/22 08:58 Pulse 62 07/10/22 08:58 Resp 18 07/10/22 08:58 BP 122/82 07/10/22 08:58 Pulse Ox 98 07/10/22 08:58 O2 Del Method 07/10/22 08:58 Airway Mallampati Class: II TM Dist: >3cm Neck ROM: Full Loose/Missing/Broken Teeth: No Heart: [id number] Lungs: cta b/l Assessment and Plan Assessment Anesthesia Assessment: Anesthesia Plan Discussed and Chart Reviewed Final Anesthetic Review Family History of Problems with Anesthesia: No History of Problems with Anesthesia: No NPO: Yes ASA Class: II Final Preanesthetic Review: No Changes in Pt Med Stat, Meds/Allgs Chart Reviewed, Consent Obtained/Reviewed and Anes Risks/Benef Reviewed Patient Risk: Intermediate Procedure Risk: Intermediate Assessment/Block/Sedation in SS: Assess/Block/Sedation-SS Anesthetic Plan Anesthetic Plan: GA, MAC: and Agree w/ Assess. and Plan Disposition: Standard PACU
[2022-07-10] MEDS: Lactated Ringers 1,000 ML 50 ML IVCONT (09:56)
[2022-07-10] MEDS: Scopolamine 1.5 MG PATCH.TD.3 EAR-BEHIND (09:56)
--- NOTE | 2022-07-10 10:14 | MHC.SHP ---
Pre-Procedural Eval Section A Date of Service: 07/10/22 The patient is an INPATIENT: No Changes since office visit: No Cold of Flu in the past 2 weeks, No New Medical Problems, No Changes in Medication and No Patient answered all questions The History & Physical has been completed within 30 days and I have reviewed it.: No Section B Chief Complaint: Calculus of kidney Details of Present Illness: Medullary sponge kidney left side currently with symptoms Relevant Family History (Specify if Yes): No Relevant Social History: None Present Medications: see Short Stay Collaborative assessment Medical History: Significant History History of Previous Operations: Relevant previous surgery/procedure and date(s) Allergies: Allergies Allergy/AdvReac Type Severity Reaction Status Date / Time metoclopramide [From Reglan] Allergy Severe CONVULSIONS Verified 05/23/22 09:35 amoxicillin Allergy Intermediate Vomiting Verified 07/05/22 14:57 bee pollen [BEE STINGS] Allergy Intermediate SWELLING Verified 05/23/22 09:35 Iodinated Contrast Media Allergy Intermediate HIVES Verified 05/23/22 09:35 [IV Dye, Iodine Containing] Cephalosporins AdvReac Intermediate VOMITING Verified 05/23/22 09:35 erythromycin base AdvReac Intermediate VOMITING Verified 05/23/22 09:35 [Erythromycin Base] Penicillins AdvReac Intermediate VOMITING Verified 05/23/22 09:35 Review of Systems Sugical H&P ROS: Negative: Constitution, Cardiovascular, Respiratory, Neurological, Psychiatric, Hem-Onc, Allergic/Immunologic, Gastrointestinal, Genitourinary, Musculoskeletal, Integumentary, Endocrine and Eyes/Ears/Nose/Throat Exam Surgical H&P Exam: Normal: HEENT, Normal: Heart, Normal: Lungs, Normal: Extremities, Normal: Abdomen, Normal: Skin and Normal: Neurological Plan Diagnosis/Plan: Unchanged (Cystoscopy, left retrograde, left ureteroscopy flexible laser lithotripsy with possible stent) I have reviewed the history and physical and performed a pertinent physical examination on my patient. No changes have occurred unless specified.
--- NOTE | 2022-07-10 11:02 | W.PM.OPN ---
Operative Note Operative Note Date of Service: 07/10/22 Narrative: PreOperative Diagnosis: Medullary sponge kidney left-sided symptoms Post Operative Diagnosis: Left-sided small stones Procedure: - cystoscopy, left retrograde - left dilatation of ureteric orifice under fluoroscopy - left ureteroscopy, laser lithotripsy Surgeon: Dr Art Cutler Anesthesia: General Indications for procedure: Known Medullary sponge kidney. Symptoms on left side. Stones on ultrasound. Procedure: After informed consent was verified patient was brought to the operating placed in supine position. Anesthesia was administered per protocol. Patient was placed in modified dorsal lithotomy position and prepped and draped in a sterile fashion. Safety pause time-out and side of surgery confirmed. Antibiotics confirmed. 22 [place] cystoscope was inserted per urethra. Bladder was normal in its entirety. Both ureteric orifices were in normal position. The left ureteric orifice was cannulated and a retrograde examination was performed. No filling defects seen along ureter. A Sensor guidewire was placed up to the level of the renal pelvis under fluoroscopy. The rigid cystoscope was removed and the inner cannula of ureteric access sheath was used under fluoroscopy to dilate the ureteric orifice. The ureteric access sheath was placed and the inner cannula with access wire removed. The digital flexible ureteral scope was placed. Lining of kidney examined. Small deposits of calcium seen submucosal in all major calices. Using the laser we were able to laser on mucosa released small imbedded stones. This was performed in numerous locations At the completion the procedure the flexible ureteral scope and access sheath were removed. The bladder was emptied. The patient tolerated the procedure well and was extubated in the operating room, and transferred in stable condition to the recovery area. Pathology: None Drains: None
[2022-07-10] MEDS: Phenazopyridine HCL 100 MG TABLET PO (12:12)
[2022-07-10] MEDS: oxyCODONE HCl Immed Release 5 MG TABLET PO (12:13)
[2022-07-10] MEDS: fentaNYL citrate/PF 100 MCG/2 ML VIAL 50 MCG IVPUSH ×2 (12:16→12:19)
[2022-07-10] MEDS: Ondansetron ODT 4 MG TAB.RAPDIS TRANSLINGU (13:30)
== END 2022-07-10 13:40 | disposition home or self-care (01) ==
PROVIDERS: PCP Internal Medicine; Visit Provider Urology
PROC: (CPT 52353; principal; 2022-07-10 09:40)
DX: N20.0 Calculus of kidney (principal); Q61.5 Medullary cystic kidney; N18.9 Chronic kidney disease, unspecified; Z87.442 Personal history of urinary calculi; Z86.718 Personal history of other venous thrombosis and embolism; Z79.899 Other long term (current) drug therapy; Z88.0 Allergy status to penicillin; Z88.1 Allergy status to other antibiotic agents; Z88.8 Allergy status to other drugs, medicaments and biological substances; Z91.041 Radiographic dye allergy status; Z98.890 Other specified postprocedural states; Z86.16 Personal history of COVID-19
CPT/HCPCS: 52353; C1758; C1769; J1100; J1956; J2405; J3010; Q9967

== ENCOUNTER 2022-08-21 06:25 | Day surgery (SDC) | payer BC, SELFPAY ==
[2022-08-15 11:23] VITALS: BMI 28.3
--- NOTE | 2022-08-18 10:39 | HO.ANESPROP2 ---
Documented by User: Mel Florez NP 08/18/22 10:41 HPI - Anesthesia Eval Consult details Narrative: 56yo F for Right Cystoscopy, Ureteroroscopy, Retro, Laser,poss stent,flexible scope s/p same 07/11/22 with GA-LMA 3 PMFSH Active Problems Active Problems: All Active Problems (Updated 08/15/22 @ 11:22 by Rena Izaguirre RN) Nephrolithiasis (Acute) Weak urinary stream (Acute) Neck swelling (Acute) Posterior knee pain (Acute) Swollen R knee (Acute) Medullary sponge kidney (Acute) COVID-19 (Acute) Pain in left leg (Acute) Uterine myoma (Acute) DVT (deep venous thrombosis) (Acute) Chronic kidney disease (Acute) Past Medical History Medical History Chronic kidney disease COVID-19 vaccine series completed DVT (deep venous thrombosis) History of COVID-19 Medullary sponge kidney Post-operative nausea and vomiting Renal calculi Family History Family history of problems with anesthesia: No Surgical History Surgical History History of ankle surgery Hx of cystoscopy Hx of lithotripsy History of Problems with Anesthesia: No Social History Social History Are you a primary nonfarm animal caretaker to a significant other at home: No Do you presently have visiting nurse or other home services: No Patient Tobacco Use Status: Never used Tobacco Use of substances other than those prescribed or required for medical reasons: No Have you been hit, kicked, punched, or otherwise hurt by someone within the past year? If so, by whom?: No Are you DNR?: No Advance Directives Information Provided: Yes (brochure mailed) Advance Directives on File: No Recently lost weight without trying: No Eating poorly because of decreased appetite: No Nutrition Risks: No Nutritional Risk Patient : No Poor oral hygiene: No Meds Allergies Allergy/AdvReac Type Severity Reaction Status Date / Time metoclopramide [From Reglan] Allergy Severe CONVULSIONS Verified 08/21/22 07:01 amoxicillin Allergy Intermediate Vomiting Verified 08/21/22 07:01 bee pollen [BEE STINGS] Allergy Intermediate SWELLING Verified 08/21/22 07:01 Iodinated Contrast Media Allergy Intermediate HIVES Verified 08/21/22 07:01 [IV Dye, Iodine Containing] Cephalosporins AdvReac Intermediate VOMITING Verified 08/21/22 07:01 erythromycin base AdvReac Intermediate VOMITING Verified 08/21/22 07:01 [Erythromycin Base] Penicillins AdvReac Intermediate VOMITING Verified 08/21/22 07:01 Home Medications Medication Instructions Recorded Confirmed Last Taken Type sertraline 50 mg tablet 50 mg PO BEDTIME 09/16/20 08/15/22 08/20/22 19:00 History Exam Exam Date and Time: August 18, 2022 1039 Height,Weight and Vital Signs: Height 5 ft 5 in Weight 77.111 kg Pertinent Lab Results Pertinent Lab Results: Laboratory Tests 04/09/22 04/09/22 11:29 11:29 WBC 5.1 Hgb 14.4 Hct 44.3 Plt Count 192 Sodium 141 Potassium 4.2 Chloride 104 Carbon Dioxide 27 BUN 18 H Creatinine 1.48 H Assessment and Plan Assessment Anesthesia Assessment: Chart Reviewed Final Anesthetic Review Family History of Problems with Anesthesia: No History of Problems with Anesthesia: No Documented by User: Dulce Taveras MD 08/21/22 08:03 [facility] Past Medical History Medical History Chronic kidney disease COVID-19 vaccine series completed DVT (deep venous thrombosis) History of COVID-19 Medullary sponge kidney Post-operative nausea and vomiting Renal calculi Surgical History Surgical History History of ankle surgery Hx of cystoscopy Hx of lithotripsy Social History Social History Are you a primary nonfarm animal caretaker to a significant other at home: No Do you presently have visiting nurse or other home services: No Patient Tobacco Use Status: Never used Tobacco Use of substances other than those prescribed or required for medical reasons: No Have you been hit, kicked, punched, or otherwise hurt by someone within the past year? If so, by whom?: No Are you DNR?: No Advance Directives Information Provided: Yes (brochure mailed) Advance Directives on File: No Recently lost weight without trying: No Eating poorly because of decreased appetite: No Nutrition Risks: No Nutritional Risk Patient : No Poor oral hygiene: No Meds Allergies Allergy/AdvReac Type Severity Reaction Status Date / Time metoclopramide [From Reglan] Allergy Severe CONVULSIONS Verified 08/21/22 07:01 amoxicillin Allergy Intermediate Vomiting Verified 08/21/22 07:01 bee pollen [BEE STINGS] Allergy Intermediate SWELLING Verified 08/21/22 07:01 Iodinated Contrast Media Allergy Intermediate HIVES Verified 08/21/22 07:01 [IV Dye, Iodine Containing] Cephalosporins AdvReac Intermediate VOMITING Verified 08/21/22 07:01 erythromycin base AdvReac Intermediate VOMITING Verified 08/21/22 07:01 [Erythromycin Base] Penicillins AdvReac Intermediate VOMITING Verified 08/21/22 07:01 Home Medications Medication Instructions Recorded Confirmed Last Taken Type sertraline 50 mg tablet 50 mg PO BEDTIME 09/16/20 08/15/22 08/20/22 19:00 History Exam Airway Mallampati Class: II TM Dist: >3cm Neck ROM: Full Loose/Missing/Broken Teeth: No Heart: RRR Lungs: CTA Assessment and Plan Assessment Anesthesia Assessment: Anesthesia Plan Discussed Final Anesthetic Review NPO: Yes ASA Class: II Final Preanesthetic Review: Meds/Allgs Chart Reviewed, Consent Obtained/Reviewed and Anes Risks/Benef Reviewed Patient Risk: Low Procedure Risk: Low Anesthetic Plan Anesthetic Plan: GA Disposition: Standard PACU
[2022-08-21] VITALS (13 sets, daily range): BP systolic 90–142; BP diastolic 47–90; PULSE 49–90; RESP 12–20; TEMP 36.2–36.4; O2SAT 96–99
--- NOTE | ~2022-08-21 | FL_ITS ---
EXAMINATION: Intraoperative fluoroscopy CLINICAL INFORMATION: Right retrograde COMPARISON: Renal ultrasound May 08, 2022 TECHNIQUE: Intraoperative fluoroscopy was provided for use by Dr. Cutler. A total of 5 images were saved to PACS. A radiologist was not present during imaging. Today's dictation is only for administrative purposes to document intraoperative fluoroscopic usage. TOTAL FLUOROSCOPIC TIME: 21 seconds FL/FL guidance in OR FINDINGS~\^^ Intraoperative fluoroscopy provided for use by Dr. Cutler. Please see operative note for detailed findings.
[2022-08-21] MEDS: Lactated Ringers 1,000 ML 100 ML IVCONT (06:52)
[2022-08-21] MEDS: Scopolamine 1.5 MG PATCH.TD.3 TRANSDERMA (08:07)
[2022-08-21] MEDS: Acetaminophen 325 MG TABLET 975 MG PO (08:07)
--- NOTE | 2022-08-21 08:57 | W.PM.OPN ---
Operative Note Operative Note Date of Service: 08/21/22 Narrative: PreOperative Diagnosis: Right renal stones Post Operative Diagnosis: right renal stone subcutaneous multiple Procedure: - cystoscopy, right retrograde - right dilatation of ureteric orifice under fluoroscopy - right ureteroscopy, laser lithotripsy - right stent placement Surgeon: Dr Art Cutler Anesthesia: General Indications for procedure: persistent pain right side following ESWL with imaging suggestive of residual fragments. Procedure: After informed consent was verified patient was brought to the operating placed in supine position. Anesthesia was administered per protocol. Patient was placed in modified dorsal lithotomy position and prepped and draped in a sterile fashion. Safety pause time-out and side of surgery confirmed. Antibiotics confirmed. 22 [place] cystoscope was inserted per urethra. Bladder was normal in its entirety. Both ureteric orifices were in normal position. The Right ureteric orifice was cannulated and a retrograde examination was performed. no filling defects seen. A Sensor guidewire was placed up to the level of the renal pelvis under fluoroscopy. The rigid cystoscope was removed and the inner cannula of ureteric access sheath was used under fluoroscopy to dilate the ureteric orifice. The ureteric access sheath was placed and the inner cannula with access wire removed. The digital flexible ureteral scope was placed. stones were submucosal throughout all calices. Using the holmium laser we were able to target multiple submucosal areas and release multiple small stone fragments. These should pass easily. At the completion of the stone procedure a Sensor wire was placed back into the renal pelvis. A 6 [place] by 24 cm double-J stent was placed into the renal pelvis and bladder under a combination of fluoroscopy and direct visualization. The symphisis pubis was used as a radiographic marker to release the stent and good coil was seen within the bladder confirming position. String was left attached to the stent The bladder was emptied. The patient tolerated the procedure well and was extubated in the operating room, and transferred in stable condition to the recovery area. Pathology: Drains: double-J stent as above
[2022-08-21] MEDS: fentaNYL citrate/PF 100 MCG/2 ML VIAL 50 MCG IVPUSH ×2 (09:37→09:47)
[2022-08-21] MEDS: Phenazopyridine HCL 100 MG TABLET PO (09:38)
[2022-08-21] MEDS: oxyCODONE HCl Immed Release 5 MG TABLET 10 MG PO (09:58)
== END 2022-08-21 10:55 | disposition home or self-care (01) ==
PROVIDERS: PCP Internal Medicine; Visit Provider Urology
PROC: (CPT 52356; principal; 2022-08-21 08:10)
DX: N20.0 Calculus of kidney (principal); Q61.5 Medullary cystic kidney; Z86.718 Personal history of other venous thrombosis and embolism; Z88.0 Allergy status to penicillin; Z88.8 Allergy status to other drugs, medicaments and biological substances
CPT/HCPCS: 52356; C1758; C1769; C1894; C2617; J1100; J1956; J2250; J2405; J2550; J3010; Q9967

== ENCOUNTER → 2022-08-29 10:50 | Outpatient (BNVA) | payer BC, SELFPAY | PROVIDERS: PCP Internal Medicine; Visit Provider Urology | DX: N20.0 Calculus of kidney (principal) ==

== ENCOUNTER 2022-10-30 11:06 | Emergency (ER) | payer BC, SELFPAY ==
--- NOTE | ~2022-10-30 | XR_ITS ---
EXAMINATION: XR CHEST CLINICAL INFORMATION: Chest pain COMPARISON: Right rib radiographs 12/29/2008 TECHNIQUE: 2 views of the chest were obtained. FINDINGS: Lungs clear. No pneumothorax, pleural reaction, infiltrate, or effusion. Heart size normal. Vascularity normal. The hilar and mediastinal contours and visualized bony structures are unremarkable. XR/XR chest 2V IMPRESSION: Unremarkable examination.
--- NOTE | 2022-10-30 11:14 | ECG_ITS ---
Test Reason : chest pain Blood Pressure : / mmHG Vent. Rate : 080 BPM Atrial Rate : 080 BPM P-R Int : 148 ms QRS Dur : 076 ms QT Int : 388 ms P-R-T Axes : 061 030 022 degrees QTc Int : 447 ms Normal sinus rhythm Nonspecific ST abnormality Abnormal ECG No previous ECGs available Referred By: Brittany Craig Electronically Signed By:BRENDA GOYAL
[2022-10-30 11:33] VITALS: BP 139/77; PULSE 77; RESP 16; O2SAT 97
[2022-10-30 11:42] LABS: MANUAL DIFF FLAG NO
[2022-10-30 11:44] VITALS: BP 127/71; PULSE 70; RESP 15; TEMP 36.5; O2SAT 96; BMI 28.8
[2022-10-30 11:44] LABS: Basophils Percent Auto 0.6 % (0-2); Eosinophils Absolute Auto 0.1 X10*3/uL (0.0-0.4); Eosinophils Percent Auto 1.5 % (0-4); Hematocrit 41.4 % (37.0-47.0); Hemoglobin 13.7 g/dl (12.0-16.0); Imm Gran Abs Auto 0.01 X10*3/uL (0.00-0.03); Imm Gran Pct Auto 0.2 % (0.0-0.4); Lymphocytes Absolute Auto 1.2 X10*3/uL (1.2-4.9); Lymphocytes Percent Auto 21.9 % (20-40); Mean Corpuscular HGB Conc 33.1 g/dl (31.0-35.0); Mean Corpuscular Hemoglobin 30.4 pg (27.0-33.0); Mean Platelet Volume 9.5 fL (9.4-12.3); Monocytes Absolute Auto 0.4 X10*3/uL (0.1-1.2); Monocytes Percent Auto 7.4 % (2-11); Neutrophils Absolute Auto 3.7 x10*3/uL (2.0-8.3); Neutrophils Percent Auto 68.4 % (45-73); Platelet Count 174 X10*3/uL (160-400); Red Cell Distribution Width 13.9 % (11.0-16.0); White Blood Count 5.4 X10*3/uL (4.8-10.8)
[2022-10-30 11:58] LABS: Alanine Aminotransferase 28 U/L (0-31); Albumin Level 4.1 g/dL (3.5-5.0); Alkaline Phosphatase 78 U/L (39-117); Anion Gap 15 (12-20); Aspartate Amino Transferase 41 U/L (5-31); Bilirubin Direct 0.2 mg/dL (0.0-0.5); Bilirubin Total 0.9 mg/dL (0.0-1.0); Blood Urea Nitrogen 18 mg/dL (9-16); Carbon Dioxide 24 mmol/L (22-29); Chloride 106 mmol/L (96-108); Creatinine Clr Calc Pharmacy 42.5; Estimated Glomerular Filt Rate 36; Glucose Random 85 mg/dL (60-115); Magnesium 2.1 mg/dL (1.6-2.6); Potassium 3.6 mmol/L (3.3-5.1); Sodium 141 mmol/L (135-145); Total Protein 6.3 g/dL (6.5-8.0)
--- NOTE | 2022-10-30 12:01 | PC.NURSE ---
pt AOx3, vSS. case monitor on - NSR. Urine sent to lab. Awaiting X ray and lab results.
[2022-10-30 12:05] LABS: Troponin-I High Sensitivity 15.3 ng/L (<3.5-17.0)
[2022-10-30 12:10] LABS: Appearance Urine Clear; Color Urine Yellow; Glucose Urine UA Negative (Negative); Leukocyte Esterase Urine Negative (Negative); Nitrite Urine Negative (Negative); Urine Blood Negative (Negative); Urine Ketones Negative (Negative); Urine Protein Negative (Neg-Trace)
--- NOTE | 2022-10-30 12:15 | ED_ITS ---
HPI - Chest Pain General Chief Complaint: Chest Pain Stated Complaint: Chest pain Time Seen by Provider: 10/30/22 11:47 Source: patient Mode of arrival: ambulatory Limitations: no limitations History of Present Illness HPI narrative: On Sunday patient got chest pain after taking her medications without water she felt like the pills got stuck. On Sunday no issues. Last night had chest clenching with pain. Now she has clenching in her chest. Patient did have a stress test 10 years ago. complaint: chest heaviness Onset (ago): hour(s) Timing of current episode: episodic Prior episodes: No Onset: during rest Pain location: substernal Pain radiation: none Severity: mild Quality: other (clenching) Related Data Home Medications Medication Instructions Recorded Confirmed sertraline 50 mg tablet 50 mg PO BEDTIME 09/16/20 08/29/22 Previous Rx's Medication Instructions Recorded naproxen 500 mg tablet 500 mg PO BID PRN pain 7 days #14 08/21/22 tabs phenazopyridine 100 mg tablet 100 mg PO TID PRN Spasm 4 days #12 08/21/22 (Pyridium) tabs tamsulosin 0.4 mg capsule 0.4 mg PO BEDTIME 14 days #14 caps 08/21/22 tramadol 50 mg tablet 50 mg PO Q6H PRN pain (scale score 08/21/22 1-3) #6 tabs Allergies Allergy/AdvReac Type Severity Reaction Status Date / Time metoclopramide [From Reglan] Allergy Severe CONVULSIONS Verified 10/30/22 11:43 amoxicillin Allergy Intermediate Vomiting Verified 10/30/22 11:43 bee pollen [BEE STINGS] Allergy Intermediate SWELLING Verified 10/30/22 11:43 Iodinated Contrast Media Allergy Intermediate HIVES Verified 10/30/22 11:43 [IV Dye, Iodine Containing] Cephalosporins AdvReac Intermediate VOMITING Verified 10/30/22 11:43 erythromycin base AdvReac Intermediate VOMITING Verified 10/30/22 11:43 [Erythromycin Base] Penicillins AdvReac Intermediate VOMITING Verified 10/30/22 11:43 Review of Systems Review of Systems: Yes all other systems are reviewed and are negative Cardiovascular: Comments: chest clenching Neurologic: Denies Sensory deficit (Neuro) PMFSH Past Medical History Medical History Chronic kidney disease COVID-19 vaccine series completed DVT (deep venous thrombosis) History of COVID-19 Medullary sponge kidney Post-operative nausea and vomiting Renal calculi Surgical History History of ankle surgery Hx of cystoscopy Hx of lithotripsy Social History Social History Are you a primary acute care occupational therapist to a significant other at home: No Do you presently have visiting nurse or other home services: No Alcohol intake: never Patient Tobacco Use Status: Never used Tobacco Smoked in Last 30 Days: No Use of substances other than those prescribed or required for medical reasons: No Advance Directives: Yes Advance Directives on File: No Patient : No Physical Exam Vital Signs: Vital Signs: Last Vital Signs Temp 98.1 F 10/30/22 14:00 Pulse 75 10/30/22 14:00 Resp 20 10/30/22 14:00 BP 112/60 10/30/22 14:00 Pulse Ox 94 10/30/22 14:00 O2 Del Method 10/30/22 14:00 BMI result Body Mass Index 28.8 Const: General: healthy appearing Nutritional Appearance: average body habitus Orientation/consciousness: oriented to person and patient oriented x3 Limitations: no limitations HEENT: Head: Yes normal to inspection Ears: external ears normal General nose exam: Normal external nose present Mouth: Normal oral and palatal mucosa present and oropharynx normal Throat: Yes posterior oropharynx normal Eyes: General: appearance normal, both eyes and all related structures Neck: Other: supple Neck: Yes normal visual inspection Chest: Chest palpation & inspection: normal inspection of the chest Resp: Auscultation: clear to auscultation bilaterally Cardio: Jugular venous distension: no JVD Rate: regular rate Rhythm: regular rhythm Heart sounds: S1 normal heart sound present and S2 normal heart sound present GI: Inspection: Yes normal to inspection Palpation (GI): Soft to palpation, nontender and No hepatosplenomegaly present Auscultation: normal bowel sounds : General: Yes no CVA tenderness Back/Spine/Pelvis: Back: no CVA tenderness Skin: General skin exam: no rashes or lesions noted Neuro: General: oriented to person and patient oriented x3 Cranial nerves: Yes CN's II-XII intact bilaterally Motor exam (neuro): 5/5 motor strength present throughout Sensory Exam: No Sensory deficit (Neuro) Extrem: General: Yes normal to inspection Psych: Appearance: grossly normal Course Reevaluation(s) Reevaluation #1: patient felt better after GI cocktail will dc home, repeat EKG and troponin are normal Time: 15:44 Medications Administered Discontinued Medications Generic Name Dose Route Start Last Admin Trade Name Freq PRN Reason Stop Dose Admin Al Hydroxide/Mg Hydroxide 30 ml 10/30/22 12:22 10/30/22 12:38 Magnesium Hydrox/Alum Hydrox 30 Ml Oral.Susp PO 10/30/22 12:23 30 ml ONCE ONE Administration Aspirin 162 mg 10/30/22 12:22 10/30/22 12:35 Aspirin Enteric Coated 81 Mg Tablet.Dr PO 10/30/22 12:23 162 mg ONCE ONE Administration Belladonna Alkaloids/Phenobarbital 10 ml 10/30/22 12:22 10/30/22 12:39 Phenobarb/Hyoscy/Atropine/Scop 10 Ml Elixir PO 10/30/22 12:23 10 ml ONCE ONE Administration Lidocaine HCl 15 ml 10/30/22 12:22 10/30/22 12:38 Lidocaine Hcl Viscous 2 % 15 Ml Solution MUCOUS MEM 10/30/22 12:23 15 ml ONCE ONE Administration Nitroglycerin 1 inch 10/30/22 12:22 10/30/22 12:36 Nitroglycerin 2 % Oint 1 Gm Packet TRANSDERMA 10/30/22 12:23 1 inch ONCE ONE Administration Medical Decision Making Differential Diagnosis Differential Diagnoses: The differential diagnosis associated with the presentation includes (STEMI, acute coronary syndrome, gastritis, esophagitis) Admission/Observation Consideration of admission/observation: Escalation of care including admission/observation considered in a 56 yo female with chest pain EKG was considered Lab Data MDM Lab Attestation statement: I reviewed the patient's lab results. 10/30/22 11:38 10/30/22 11:38 Labs: Lab Results 10/30/22 10/30/22 10/30/22 Range/Units 11:38 11:38 11:38 WBC 5.4 (4.8-10.8) X10*3/uL RBC 4.50 (4.20-5.50) X10*6/uL Hgb 13.7 (12.0-16.0) g/dl Hct 41.4 (37.0-47.0) % MCV 92.0 (80.0-98.0) fL MCH 30.4 (27.0-33.0) pg MCHC 33.1 (31.0-35.0) g/dl RDW 13.9 (11.0-16.0) % Plt Count 174 (160-400) X10*3/uL MPV 9.5 (9.4-12.3) fL Immature Gran % (Auto) 0.2 (0.0-0.4) % Neut % (Auto) 68.4 (45-73) % Lymph % (Auto) 21.9 (20-40) % [place] % (Auto) 7.4 (2-11) % Eos % (Auto) 1.5 (0-4) % Baso % (Auto) 0.6 (0-2) % Lymph # (Auto) 1.2 (1.2-4.9) X10*3/uL [place] # (Auto) 0.4 (0.1-1.2) X10*3/uL Eos # (Auto) 0.1 (0.0-0.4) X10*3/uL Baso # (Auto) 0.0 (0.0-0.2) X10*3/uL Abs Immat Gran (auto) 0.01 (0.00-0.03) X10*3/uL Absolute Neuts (auto) 3.7 (2.0-8.3) x10*3/uL Absolute Nucleated RBC 0.000 (0.0-0.012) X10*3/uL Nucleated RBC % (auto) 0.0 (0.0-0.2) /100WBC Sodium 141 (135-145) mmol/L Potassium 3.6 (3.3-5.1) mmol/L Chloride 106 (96-108) mmol/L Carbon Dioxide 24 (22-29) mmol/L Anion Gap 15 (12-20) BUN 18 H (9-16) mg/dL Creatinine 1.51 H (0.5-1.4) mg/dL Estim Creat Clear Calc 42.5 Estimated GFR 36 Random Glucose 85 (60-115) mg/dL Calcium 9.0 D (8.4-10.2) mg/dL Magnesium 2.1 (1.6-2.6) mg/dL Total Bilirubin 0.9 (0.0-1.0) mg/dL Direct Bilirubin 0.2 (0.0-0.5) mg/dL AST 41 H (5-31) U/L ALT 28 (0-31) U/L Alkaline Phosphatase 78 (39-117) U/L Troponin I High Sens 15.3 (<3.5-17.0) ng/L Total Protein 6.3 L (6.5-8.0) g/dL Albumin 4.1 (3.5-5.0) g/dL Urine Color Urine Appearance Urine pH (5.0-9.0) Ur Specific [place] (1.005-1.025) Urine Protein (Neg-Trace) mg/dL Urine Glucose (UA) (Negative) mg/dL Urine Ketones (Negative) mg/dL Urine Blood (Negative) Urine Nitrite (Negative) Ur Leukocyte Esterase (Negative) 10/30/22 10/30/22 Range/Units 11:59 14:22 WBC (4.8-10.8) X10*3/uL RBC (4.20-5.50) X10*6/uL Hgb (12.0-16.0) g/dl Hct (37.0-47.0) % MCV (80.0-98.0) fL MCH (27.0-33.0) pg MCHC (31.0-35.0) g/dl RDW (11.0-16.0) % Plt Count (160-400) X10*3/uL MPV (9.4-12.3) fL Immature Gran % (Auto) (0.0-0.4) % Neut % (Auto) (45-73) % Lymph % (Auto) (20-40) % [place] % (Auto) (2-11) % Eos % (Auto) (0-4) % Baso % (Auto) (0-2) % Lymph # (Auto) (1.2-4.9) X10*3/uL [place] # (Auto) (0.1-1.2) X10*3/uL Eos # (Auto) (0.0-0.4) X10*3/uL Baso # (Auto) (0.0-0.2) X10*3/uL Abs Immat Gran (auto) (0.00-0.03) X10*3/uL Absolute Neuts (auto) (2.0-8.3) x10*3/uL Absolute Nucleated RBC (0.0-0.012) X10*3/uL Nucleated RBC % (auto) (0.0-0.2) /100WBC Sodium (135-145) mmol/L Potassium (3.3-5.1) mmol/L Chloride (96-108) mmol/L Carbon Dioxide (22-29) mmol/L Anion Gap (12-20) BUN (9-16) mg/dL Creatinine (0.5-1.4) mg/dL Estim Creat Clear Calc Estimated GFR Random Glucose (60-115) mg/dL Calcium (8.4-10.2) mg/dL Magnesium (1.6-2.6) mg/dL Total Bilirubin (0.0-1.0) mg/dL Direct Bilirubin (0.0-0.5) mg/dL AST (5-31) U/L ALT (0-31) U/L Alkaline Phosphatase (39-117) U/L Troponin I High Sens 13.8 (<3.5-17.0) ng/L Total Protein (6.5-8.0) g/dL Albumin (3.5-5.0) g/dL Urine Color Yellow Urine Appearance Clear Urine pH 6.0 (5.0-9.0) Ur Specific [place] 1.010 (1.005-1.025) Urine Protein Negative (Neg-Trace) mg/dL Urine Glucose (UA) Negative (Negative) mg/dL Urine Ketones Negative (Negative) mg/dL Urine Blood Negative (Negative) Urine Nitrite Negative (Negative) Ur Leukocyte Esterase Negative (Negative) Independent Interpretation I performed an independent interpretation of an: EKG (#1: normal sinus rhythm q uestion of subtle lateral ischemia V4-V6) Interpretation: #2 [address] sinus [address] or twave changes Discharge Plan Discharge Clinical Impression: Gastritis, Esophagitis, Chest pain Patient Disposition: Home, Self-Care Instructions: Esophagitis (ED), Gastritis (ED), Chest Pain (ED) Prescriptions: No Action tramadol 50 mg tablet 50 mg PO Q6H PRN (Reason: pain (scale score 1-3)) Qty: 6 0RF tamsulosin 0.4 mg capsule 0.4 mg PO BEDTIME 14 Days Qty: 14 0RF phenazopyridine [Pyridium] 100 mg tablet 100 mg PO TID PRN (Reason: Spasm) 4 Days Qty: 12 0RF naproxen 500 mg tablet 500 mg PO BID PRN (Reason: pain) 7 Days Qty: 14 0RF sertraline 50 mg tablet 50 mg PO BEDTIME Referrals: Noe Salcedo MD [Primary Care Provider] - 3 days
[2022-10-30] MEDS: Aspirin Enteric Coated 81 MG TABLET.DR 162 MG PO (12:35)
[2022-10-30] MEDS: Nitroglycerin 2 % Oint 1 GM Packet 1 INCH TRANSDERMA (12:36)
[2022-10-30] MEDS: Magnesium Hydrox/Alum Hydrox 30 ML ORAL.SUSP PO (12:38)
[2022-10-30] MEDS: Lidocaine HCl Viscous 2 % 15 ML SOLUTION MUCOUS MEM (12:38)
[2022-10-30] MEDS: PHENobarb/Hyoscy/Atropine/Scop 10 ML ELIXIR PO (12:39)
--- NOTE | 2022-10-30 12:39 | PC.NURSE ---
pt returned from Xray. pt medicated per order - GI cocktail, nitro patch, and aspirin.
[2022-10-30 14:00] VITALS: BP 112/60; PULSE 75; RESP 20; TEMP 36.7; O2SAT 94
--- NOTE | 2022-10-30 14:10 | PC.NURSE ---
patient a&ox3, security monitor intact- nsr 70s, vss, cell hoffman within reach, will continue to monitor
--- NOTE | 2022-10-30 14:23 | PC.NURSE ---
labs drawn, vss
[2022-10-30 14:48] LABS: Troponin-I High Sensitivity 13.8 ng/L (<3.5-17.0)
--- NOTE | 2022-10-30 15:15 | ECG_ITS ---
Test Reason : REPEAT FOR CP Blood Pressure : / mmHG Vent. Rate : 069 BPM Atrial Rate : 069 BPM P-R Int : 168 ms QRS Dur : 078 ms QT Int : 400 ms P-R-T Axes : 022 001 015 degrees QTc Int : 428 ms Normal sinus rhythm Normal ECG When compared with ECG of 30-OCT-2022 11:17, No significant change was found Referred By: Helio Castellanos Electronically Signed By:BRENDA GOYAL
[2022-10-30 15:41] VITALS: BP 113/63; PULSE 73; RESP 15; TEMP 36.8; O2SAT 94
== END 2022-10-30 16:37 | disposition home or self-care (01) ==
PROVIDERS: Physician Assistant; Emergency Provider Emergency Medicine; PCP Internal Medicine
DX: R07.89 Other chest pain (principal); K20.90 Esophagitis, unspecified without bleeding; Z79.899 Other long term (current) drug therapy
CPT/HCPCS: 36415; 71046; 80048; 80076; 81003; 83735; 84484; 85025; 93005; 99283; 99285

== ENCOUNTER 2022-11-08 13:23 | Outpatient (REF) | payer BC, SELFPAY ==
--- NOTE | ~2022-11-08 | US_ITS ---
EXAMINATION: US RETROPERITONEAL LIMITED (RENAL ONLY) CLINICAL INFORMATION: Calculus of kidney. COMPARISON: Ultrasound retroperitoneal limited (renal only) 05/08/2022. CT abdomen and pelvis without contrast 04/09/2022. Ultrasound retroperitoneal limited (renal only) 11/11/2021. X-ray abdomen KUB 01/23/2018 and 01/02/2018. TECHNIQUE: Real-time imaging of the kidneys. FINDINGS: RIGHT KIDNEY: 10.4 x 3.8 x 4.2 cm (SAG x AP x TRV). The kidney is normal in size, lobulated contour and echogenicity. No focal parenchymal lesions or hydronephrosis. There are multiple echogenic stones with the largest midpole stone measuring 0.3 x 0.3 x 0.3 cm and acoustic shadowing. There are multiple punctate foci with twinkle artifact. LEFT KIDNEY: 11.8 x 5.0 x 3.4 cm (SAG x AP x TRV). The kidney is normal in size, cortical thinning, lobulated contour and echogenicity. No focal parenchymal lesions or hydronephrosis. There are multiple echogenic stones largest in the midpole measuring 0.3 x 0.2 x 0.2 cm. There are numerous punctate foci with twinkle artifact. US/US renal BI IMPRESSION: Multiple bilateral echogenic stones without caliectasis or hydronephrosis. There is bilateral cortical thinning.
== END 2022-11-08 13:24 | disposition home or self-care (01) ==
LOC: HO.US 13:23
PROVIDERS: PCP Internal Medicine; Visit Provider Urology
DX: N20.0 Calculus of kidney (principal)
CPT/HCPCS: 76775

== ENCOUNTER 2022-12-27 11:37 | Emergency (ER) | payer BC, SELFPAY ==
[2022-12-27] VITALS (7 sets, daily range): BP systolic 109–147; BP diastolic 58–90; PULSE 61–76; RESP 16–18; TEMP 36.7–37; O2SAT 96–98; BMI 28.1
--- NOTE | ~2022-12-27 | CT_ITS ---
EXAMINATION: CT ABDOMEN AND PELVIS WITHOUT CONTRAST CLINICAL INFORMATION: Left-sided flank pain. History of kidney stones. COMPARISON: 04/09/2022. TECHNIQUE: Multidetector volumetric imaging was performed from the superior aspect of the liver through the pubic symphysis. Sagittal and coronal reformatted images were obtained on the technologist's workstation. This CT examination was performed using dose optimization techniques as appropriate, variously including the following: *Automated exposure control *Adjustment of mA and/or kV according to patient size (this includes techniques or standardized protocols for targeted exams where dose is matched to indication/reason for exam; i.e. extremities or head) *Use of iterative reconstruction technique DLP: 590 mGy-cm FINDINGS: LUNG BASES: Normal. No pulmonary consolidation or pleural effusion. LIVER: The patient's position on the examination table slightly changed between acquisition of localizer images and axial images, and the hepatic dome is not included in the [id number]. There appears to be chronic, mild steatosis of the liver. These noncontrast images show no interval development of any suspicious hepatic lesion. GALLBLADDER AND BILIARY TREE: Gallbladder is surgically absent. No dilated bile ducts. PANCREAS: Normal. No edema, pancreatic ductal dilatation or mass. SPLEEN: Normal. ADRENAL GLANDS: Normal. KIDNEYS AND URETERS: Kidneys have lobulated contour and there are regions of chronic cortical atrophy. A few small < 0.3 cm calyceal stones of the upper and lower pole of right kidney are observed. Also, there are subtle hyperdensities of renal pyramids, likely mild medullary nephrocalcinosis. Punctate calculi within both kidneys were better depicted on 04/09/2022. The ureters are unremarkable. No ureteral stones, hydroureter or hydronephrosis. BLADDER: Normal. No calculi or wall thickening. BOWEL AND PERITONEUM: Stomach is unremarkable. No dilated bowel loops. No focal bowel thickening. Scattered diverticula of the colon without evidence of diverticulitis. No abdominal free fluid or free air. The mild haziness of central mesentery remains unchanged compared to 04/09/2022. The mesenteric lymph nodes are in the normal size range and measure up to 0.5 cm short axis dimension. ABDOMINAL WALL: Minimal protrusion of fat into the umbilicus. VASCULATURE: Atherosclerotic calcification of the abdominal aorta without aneurysm. LYMPH NODES: No pathologic sized lymph nodes in the abdomen or pelvis. No inguinal lymphadenopathy. PELVIC VISCERA: No uterine or adnexal mass. Trace amount of simple appearing free fluid is seen in the posterior cul-de-sac of the pelvis. MUSCULOSKELETAL: Unremarkable. CT/CT abdomen pelvis wo IV con IMPRESSION: * No acute imaging abnormalities in the abdomen or pelvis compared to 04/09/2022. * Mild mesenteric panniculitis. 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 Small < 0.3 cm renal stones are present. There are no enlarging renal stones since 04/09/2022. No ureteral calculi or hydroureteronephrosis. * Diverticula of the colon without evidence of diverticulitis.
--- NOTE | 2022-12-27 11:50 | ED.ABDPAIN ---
HPI - Abdominal Pain General Chief Complaint: Abdominal Pain <Jil Nava NP - Last Filed: 12/27/22 11:52> Stated Complaint: nausea <Jil Nava NP - Last Filed: 12/27/22 11:52> Time Seen by Provider: 12/27/22 12:24 <Jil Nava NP - Last Filed: 12/27/22 11:52> Source: patient <LYLA Mueller - Last Filed: 12/27/22 16:55> Mode of arrival: ambulatory <LYLA Muelelr Last Filed: 12/27/22 16:55> Limitations: no limitations <LYLA Mueller Last Filed: 12/27/22 16:55> History of Present Illness HPI narrative: 57-year-old female with history of DVT, CKD, recurrent kidney stones requiring lithotripsy and stent who presents to the ER for evaluation of left-sided flank pain that radiates into her abdomen for the last 4 days.. The pain is associated with nausea, vomiting, hematuria. She states she also had a fever yesterday. She states the pain has been present for the last 4 days. She thinks she may have a kidney stone. She states the pain started in the left flank, now is in her lower abdomen and her lower back bilaterally. She reports nausea and episode of vomiting today. No diarrhea. No shortness of breath or chest pain. <LYLA Mueller Last Filed: 12/27/22 16:55> MD elicited complaint: abdominal pain and flank pain <LYLA Mueller Last Filed: 12/27/22 16:55> Pertinent past history: kidney stones <LYLA Mueller Last Filed: 12/27/22 16:55> Onset (ago): day(s) (4) <LYLA Mueller Last Filed: 12/27/22 16:55> Pain Consistency: constant <LYLA Mueller Last Filed: 12/27/22 16:55> Location: L flank <LYLA Mueller Last Filed: 12/27/22 16:55> Severity: severe <LYLA Mueller Last Filed: 12/27/22 16:55> Quality: stabbing and aching <LYLA Mueller - Last Filed: 12/27/22 16:55> Radiation: suprapubic and back <LYLA Mueller - Last Filed: 12/27/22 16:55> Migration to: no migration <LYLA Mueller - Last Filed: 12/27/22 16:55> Exacerbating factors: nothing <LYLA Mueller - Last Filed: 12/27/22 16:55> Relieving factors: nothing <LYLA Mueller - Last Filed: 12/27/22 16:55> Context: history of similar episodes <LYLA Mueller - Last Filed: 12/27/22 16:55> Associated symptoms: nausea, vomiting, fever and chills <LYLA Mueller - Last Filed: 12/27/22 16:55> Related Data Home Medications: Home Medications Medication Instructions Recorded Confirmed sertraline 50 mg tablet 50 mg PO BEDTIME 09/16/20 08/29/22 Previous Rx's Medication Instructions Recorded naproxen 500 mg tablet 500 mg PO BID PRN pain 7 days #14 08/21/22 tabs phenazopyridine 100 mg tablet 100 mg PO TID PRN Spasm 4 days #12 08/21/22 (Pyridium) tabs tamsulosin 0.4 mg capsule 0.4 mg PO BEDTIME 14 days #14 caps 08/21/22 tramadol 50 mg tablet 50 mg PO Q6H PRN pain (scale score 08/21/22 1-3) #6 tabs cefuroxime axetil 250 mg tablet 250 mg PO BID 7 days #14 tabs 12/27/22 ondansetron 4 mg disintegrating 4 mg PO Q8H PRN nausea and 12/27/22 tablet vomiting #7 tabs tramadol 50 mg tablet 50 mg PO Q6H PRN severe pain 12/27/22 (scale score 7-10) #10 tabs <Jil Nava NP - Last Filed: 12/27/22 11:52> Allergies/Adverse Reactions: Allergies Allergy/AdvReac Type Severity Reaction Status Date / Time metoclopramide [From Reglan] Allergy Severe CONVULSIONS Verified 12/27/22 11:52 amoxicillin Allergy Intermediate Vomiting Verified 12/27/22 11:52 bee pollen [BEE STINGS] Allergy Intermediate SWELLING Verified 12/27/22 11:52 Iodinated Contrast Media Allergy Intermediate HIVES Verified 12/27/22 11:52 [IV Dye, Iodine Containing] Cephalosporins AdvReac Intermediate VOMITING Verified 12/27/22 11:52 erythromycin base AdvReac Intermediate VOMITING Verified 12/27/22 11:52 [Erythromycin Base] Penicillins AdvReac Intermediate VOMITING Verified 12/27/22 11:52 <Jil Nava NP - Last Filed: 12/27/22 11:52> Review of Systems Review of Systems Yes all other systems are reviewed and are negative <LYLA Mueller - Last Filed: 12/27/22 16:55> [facility] Past Medical History Medical History: Medical History Chronic kidney disease COVID-19 vaccine series completed DVT (deep venous thrombosis) History of COVID-19 Medullary sponge kidney Post-operative nausea and vomiting Renal calculi <Jil Nava NP - Last Filed: 12/27/22 11:52> Surgical History: Surgical History History of ankle surgery Hx of cystoscopy Hx of lithotripsy <Jil Nava NP - Last Filed: 12/27/22 11:52> Social History Social History: Social History Are you a primary child care lead teacher to a significant other at home: No Do you presently have visiting nurse or other home services: No Alcohol intake: never Patient Tobacco Use Status: Never used Tobacco Smoked in Last 30 Days: No Use of substances other than those prescribed or required for medical reasons: No Advance Directives: Yes Advance Directives Information Provided: No Advance Directives on File: No <Jil Nava NP - Last Filed: 12/27/22 11:52> Physical Exam ED Vital Signs: Vital Signs - 24 hr 12/27/22 11:49 12/27/22 12:42 12/27/22 13:50 Temperature 98.2 F 98.4 F Pulse Rate 76 72 Respiratory Rate 18 18 18 Blood Pressure 127/76 147/90 H Pulse Oximetry 97 98 Oxygen Delivery Method Room Air Room Air 12/27/22 14:12 12/27/22 15:29 12/27/22 15:30 Temperature 98.6 F Pulse Rate 63 61 Respiratory Rate 16 16 16 Blood Pressure 123/74 109/65 Pulse Oximetry 98 Oxygen Delivery Method Room Air BMI result Body Mass Index 28.1 <Jil Nava NP - Last Filed: 12/27/22 11:52> Vital Signs - 24 hr 12/27/22 11:49 12/27/22 12:42 12/27/22 13:50 Temperature 98.2 F 98.4 F Pulse Rate 76 72 Respiratory Rate 18 18 18 Blood Pressure 127/76 147/90 H Pulse Oximetry 97 98 Oxygen Delivery Method Room Air Room Air 12/27/22 14:12 12/27/22 15:29 12/27/22 15:30 Temperature 98.6 F Pulse Rate 63 61 Respiratory Rate 16 16 16 Blood Pressure 123/74 109/65 Pulse Oximetry 98 Oxygen Delivery Method Room Air BMI result Body Mass Index 28.1 <LYLA Mueller - Last Filed: 12/27/22 16:55> Appearance: Alert. Oriented X3. No acute distress. Head: normocephalic, atraumatic. Eyes: Pupils equal, round and reactive to light. ENT: Pharynx normal. No tonsillar swelling or exudate. Neck: Normal inspection. Neck supple. CVS: Normal heart rate and rhythm. Pulses normal. Respiratory: No respiratory distress. Breath sounds normal. Abdomen: Soft with mild lower abdominal tenderness bilaterally. No rebound or guarding. +BS x4 no CVA tenderness. Skin: Skin warm and dry. Normal skin color. Normal skin turgor. No rashes. Extremities: No lower extremity edema. No joint swelling. Neuro/psych: Oriented X 3. No motor deficit. No sensory deficit. CN II-XII intact. Normal speech and cognition. <LYLA Mueller - Last Filed: 12/27/22 16:55> Course Course Course Narrative: This is a rapid medical exam. Deferred additional HPI, ROS, PE to primary provider. 56-year-old female with a past medical history of DVT not on AC therapy, CKD, medullary sponge kidney disease, and kidney stones being followed by Urology who has had stents and lithotripsy here with left sided flank pain which radiates to the abdomen with hematuria, vomiting since Sunday. No longer has her menses. Will obtain labs, UA, viral testing. <Jil Nava NP - Last Filed: 12/27/22 11:52> Medical Decision Making Medical Decision Making [facility] Narrative: She 57-year-old female with history of recurrent kidney stones, CKD presents to the ER for evaluation of left-sided flank pain that radiates to her lower abdomen and back along with nausea, vomiting, hematuria, and fever. Her lab workup was unremarkable. Her CKD is at baseline. No leukocytosis. CT scan of her abdomen did not show any evidence of obstructing kidney stones. 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 At around 13:00 patient developed substernal chest pain that did not radiate. She states it was sharp. She was tearful. EKG showed no ischemic changes. First troponin was negative. Second troponin was also negative. She was informed of the results of her labs and CT scan. She was given additional pain control with improvement in her symptoms. Urinalysis showed evidence of a possible UTI so she was started on antibiotics given her symptoms. She is feeling better and she is stable for discharge home. <LYLA Mueller - Last Filed: 12/27/22 16:55> Differential Diagnosis Differential Diagnoses: The differential diagnosis associated with the presentation includes <LYLA Mueller - Last Filed: 12/27/22 16:55> Obstructing kidney stone, pyelonephritis, UTI, viral syndrome <LYLA Mueller Last Filed: 12/27/22 16:55> Admission/Observation Consideration of admission/observation: Escalation of care including admission/observation considered <LYLA Mueller Last Filed: 12/27/22 16:55> Multiple pain medications required, ultimately patient improved and was able to be discharged home. <YLLA Mueller Last Filed: 12/27/22 16:55> Lab Data [facility] Lab Attestation statement: I reviewed the patient's lab results. <LYLA Mueller Last Filed: 12/27/22 16:55> No leukocytosis, anemia, significant metabolic derangement. CKD at baseline <LYLA Mueller - Last Filed: 12/27/22 16:55> Result Diagrams: 12/27/22 12:05 12/27/22 12:05 <Jil Nava NP - Last Filed: 12/27/22 11:52> Labs: Lab Results 12/27/22 12/27/22 12/27/22 Range/Units 12:05 12:05 12:05 WBC 7.7 (4.8-10.8) X10*3/uL RBC 5.03 (4.20-5.50) X10*6/uL Hgb 15.4 (12.0-16.0) g/dl Hct 45.2 (37.0-47.0) % MCV 89.9 (80.0-98.0) fL MCH 30.6 (27.0-33.0) pg MCHC 34.1 (31.0-35.0) g/dl RDW 13.1 (11.0-16.0) % Plt Count 196 (160-400) X10*3/uL MPV 9.8 (9.4-12.3) fL Immature Gran % (Auto) 0.5 H (0.0-0.4) % Neut % (Auto) 75.4 H (45-73) % Lymph % (Auto) 13.7 L (20-40) % [place] % (Auto) 9.5 (2-11) % Eos % (Auto) 0.8 (0-4) % Baso % (Auto) 0.1 (0-2) % Lymph # (Auto) 1.1 L (1.2-4.9) X10*3/uL [place] # (Auto) 0.7 (0.1-1.2) X10*3/uL Eos # (Auto) 0.1 (0.0-0.4) X10*3/uL Baso # (Auto) 0.0 (0.0-0.2) X10*3/uL Abs Immat Gran (auto) 0.04 H (0.00-0.03) X10*3/uL Absolute Neuts (auto) 5.8 (2.0-8.3) x10*3/uL Absolute Nucleated RBC 0.000 (0.0-0.012) X10*3/uL Nucleated RBC % (auto) 0.0 (0.0-0.2) /100WBC Sodium 141 (135-145) mmol/L Potassium 3.3 (3.3-5.1) mmol/L Chloride 104 (96-108) mmol/L Carbon Dioxide 26 (22-29) mmol/L Anion Gap 14 (12-20) BUN 28 H (9-16) mg/dL Creatinine 1.69 H (0.5-1.4) mg/dL Estim Creat Clear Calc 37.1 Estimated GFR 31 Random Glucose 94 (60-115) mg/dL Calcium 9.2 (8.4-10.2) mg/dL Total Bilirubin 1.3 H (0.0-1.0) mg/dL Direct Bilirubin 0.3 (0.0-0.5) mg/dL AST 20 (5-31) U/L ALT 28 (0-31) U/L Alkaline Phosphatase 71 (39-117) U/L Troponin I High Sens (<3.5-17.0) ng/L Total Protein 6.6 (6.5-8.0) g/dL Albumin 4.4 (3.5-5.0) g/dL Lipase 33 (8-78) U/L Urine Color Urine Appearance Urine pH (5.0-9.0) Ur Specific [place] (1.005-1.025) Urine Protein (Neg-Trace) mg/dL Urine Glucose (UA) (Negative) mg/dL Urine Ketones (Negative) mg/dL Urine Blood (Negative) Urine Nitrite (Negative) Ur Leukocyte Esterase (Negative) COVID-19 (JOSE) Negative (Negative) COVID-19 Clin Com See Note 12/27/22 12/27/22 12/27/22 Range/Units 14:09 15:59 16:39 WBC (4.8-10.8) X10*3/uL RBC (4.20-5.50) X10*6/uL Hgb (12.0-16.0) g/dl Hct (37.0-47.0) % MCV (80.0-98.0) fL MCH (27.0-33.0) pg MCHC (31.0-35.0) g/dl RDW (11.0-16.0) % Plt Count (160-400) X10*3/uL MPV (9.4-12.3) fL Immature Gran % (Auto) (0.0-0.4) % Neut % (Auto) (45-73) % Lymph % (Auto) (20-40) % [place] % (Auto) (2-11) % Eos % (Auto) (0-4) % Baso % (Auto) (0-2) % Lymph # (Auto) (1.2-4.9) X10*3/uL [place] # (Auto) (0.1-1.2) X10*3/uL Eos # (Auto) (0.0-0.4) X10*3/uL Baso # (Auto) (0.0-0.2) X10*3/uL Abs Immat Gran (auto) (0.00-0.03) X10*3/uL Absolute Neuts (auto) (2.0-8.3) x10*3/uL Absolute Nucleated RBC (0.0-0.012) X10*3/uL Nucleated RBC % (auto) (0.0-0.2) /100WBC Sodium (135-145) mmol/L Potassium (3.3-5.1) mmol/L Chloride (96-108) mmol/L Carbon Dioxide (22-29) mmol/L Anion Gap (12-20) BUN (9-16) mg/dL Creatinine (0.5-1.4) mg/dL Estim Creat Clear Calc Estimated GFR Random Glucose (60-115) mg/dL Calcium (8.4-10.2) mg/dL Total Bilirubin (0.0-1.0) mg/dL Direct Bilirubin (0.0-0.5) mg/dL AST (5-31) U/L ALT (0-31) U/L Alkaline Phosphatase (39-117) U/L Troponin I High Sens < 2.7 D < 2.7 (<3.5-17.0) ng/L Total Protein (6.5-8.0) g/dL Albumin (3.5-5.0) g/dL Lipase (8-78) U/L Urine Color Yellow Urine Appearance Clear Urine pH 6.5 (5.0-9.0) Ur Specific [place] 1.020 (1.005-1.025) Urine Protein Trace (Neg-Trace) mg/dL Urine Glucose (UA) Negative (Negative) mg/dL Urine Ketones Negative (Negative) mg/dL Urine Blood Negative (Negative) Urine Nitrite Negative (Negative) Ur Leukocyte Esterase Small (1+) H (Negative) COVID-19 (JOSE) (Negative) COVID-19 Clin Com <Jil Nava, HUMAN RESOURCES ANALYST - Last Filed: 12/27/22 11:52> Lab Results 12/27/22 12/27/22 12/27/22 Range/Units 12:05 12:05 12:05 WBC 7.7 (4.8-10.8) X10*3/uL RBC 5.03 (4.20-5.50) X10*6/uL Hgb 15.4 (12.0-16.0) g/dl Hct 45.2 (37.0-47.0) % MCV 89.9 (80.0-98.0) fL MCH 30.6 (27.0-33.0) pg MCHC 34.1 (31.0-35.0) g/dl RDW 13.1 (11.0-16.0) % Plt Count 196 (160-400) X10*3/uL MPV 9.8 (9.4-12.3) fL Immature Gran % (Auto) 0.5 H (0.0-0.4) % Neut % (Auto) 75.4 H (45-73) % Lymph % (Auto) 13.7 L (20-40) % [place] % (Auto) 9.5 (2-11) % Eos % (Auto) 0.8 (0-4) % Baso % (Auto) 0.1 (0-2) % Lymph # (Auto) 1.1 L (1.2-4.9) X10*3/uL [place] # (Auto) 0.7 (0.1-1.2) X10*3/uL Eos # (Auto) 0.1 (0.0-0.4) X10*3/uL Baso # (Auto) 0.0 (0.0-0.2) X10*3/uL Abs Immat Gran (auto) 0.04 H (0.00-0.03) X10*3/uL Absolute Neuts (auto) 5.8 (2.0-8.3) x10*3/uL Absolute Nucleated RBC 0.000 (0.0-0.012) X10*3/uL Nucleated RBC % (auto) 0.0 (0.0-0.2) /100WBC Sodium 141 (135-145) mmol/L Potassium 3.3 (3.3-5.1) mmol/L Chloride 104 (96-108) mmol/L Carbon Dioxide 26 (22-29) mmol/L Anion Gap 14 (12-20) BUN 28 H (9-16) mg/dL Creatinine 1.69 H (0.5-1.4) mg/dL Estim Creat Clear Calc 37.1 Estimated GFR 31 Random Glucose 94 (60-115) mg/dL Calcium 9.2 (8.4-10.2) mg/dL Total Bilirubin 1.3 H (0.0-1.0) mg/dL Direct Bilirubin 0.3 (0.0-0.5) mg/dL AST 20 (5-31) U/L ALT 28 (0-31) U/L Alkaline Phosphatase 71 (39-117) U/L Troponin I High Sens (<3.5-17.0) ng/L Total Protein 6.6 (6.5-8.0) g/dL Albumin 4.4 (3.5-5.0) g/dL Lipase 33 (8-78) U/L Urine Color Urine Appearance Urine pH (5.0-9.0) Ur Specific [place] (1.005-1.025) Urine Protein (Neg-Trace) mg/dL Urine Glucose (UA) (Negative) mg/dL Urine Ketones (Negative) mg/dL Urine Blood (Negative) Urine Nitrite (Negative) Ur Leukocyte Esterase (Negative) COVID-19 (JOSE) Negative (Negative) COVID-19 Clin Com See Note 12/27/22 12/27/22 12/27/22 Range/Units 14:09 15:59 16:39 WBC (4.8-10.8) X10*3/uL RBC (4.20-5.50) X10*6/uL Hgb (12.0-16.0) g/dl Hct (37.0-47.0) % MCV (80.0-98.0) fL MCH (27.0-33.0) pg MCHC (31.0-35.0) g/dl RDW (11.0-16.0) % Plt Count (160-400) X10*3/uL MPV (9.4-12.3) fL Immature Gran % (Auto) (0.0-0.4) % Neut % (Auto) (45-73) % Lymph % (Auto) (20-40) % [place] % (Auto) (2-11) % Eos % (Auto) (0-4) % Baso % (Auto) (0-2) % Lymph # (Auto) (1.2-4.9) X10*3/uL [place] # (Auto) (0.1-1.2) X10*3/uL Eos # (Auto) (0.0-0.4) X10*3/uL Baso # (Auto) (0.0-0.2) X10*3/uL Abs Immat Gran (auto) (0.00-0.03) X10*3/uL Absolute Neuts (auto) (2.0-8.3) x10*3/uL Absolute Nucleated RBC (0.0-0.012) X10*3/uL Nucleated RBC % (auto) (0.0-0.2) /100WBC Sodium (135-145) mmol/L Potassium (3.3-5.1) mmol/L Chloride (96-108) mmol/L Carbon Dioxide (22-29) mmol/L Anion Gap (12-20) BUN (9-16) mg/dL Creatinine (0.5-1.4) mg/dL Estim Creat Clear Calc Estimated GFR Random Glucose (60-115) mg/dL Calcium (8.4-10.2) mg/dL Total Bilirubin (0.0-1.0) mg/dL Direct Bilirubin (0.0-0.5) mg/dL AST (5-31) U/L ALT (0-31) U/L Alkaline Phosphatase (39-117) U/L Troponin I High Sens < 2.7 D < 2.7 (<3.5-17.0) ng/L Total Protein (6.5-8.0) g/dL Albumin (3.5-5.0) g/dL Lipase (8-78) U/L Urine Color Yellow Urine Appearance Clear Urine pH 6.5 (5.0-9.0) Ur Specific [place] 1.020 (1.005-1.025) Urine Protein Trace (Neg-Trace) mg/dL Urine Glucose (UA) Negative (Negative) mg/dL Urine Ketones Negative (Negative) mg/dL Urine Blood Negative (Negative) Urine Nitrite Negative (Negative) Ur Leukocyte Esterase Small (1+) H (Negative) COVID-19 (JOSE) (Negative) COVID-19 Clin Com <LYLA Mueller - Last Filed: 12/27/22 16:55> Independent Interpretation I performed an independent interpretation of an: EKG and CT Scan <LYLA Mueller Last Filed: 12/27/22 16:55> Interpretation: No obstructing kidney stone seen. Agree with radiologist's read. EKG with normal sinus rhythm, ventricular rate 62 beats per minute, normal [place] interval, normal QTC, no ST segment elevations or depressions. No change from October 2022 <LYLA Mueller Last Filed: 12/27/22 16:55> Radiology Impression Discussion of test interpretation with radiology: I have reviewed the radiologist's reading. <LYLA Mueller Last Filed: 12/27/22 16:55> Radiologist Impression: ?CT/CT abdomen pelvis wo IV con IMPRESSION: *? No acute imaging abnormalities in the abdomen or pelvis compared to 04/09/2022. *? Mild mesenteric panniculitis. *? 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 Small < 0.3 cm renal stones are present. There are no enlarging renal stones since 04/09/2022. No ureteral calculi or hydroureteronephrosis. *? Diverticula of the colon without evidence of diverticulitis. <LYLA Mueller Last Filed: 12/27/22 16:55> External Record Review External record reviewed: Outpatient record, Prior outpatient labs and Prior outpatient radiology <LYLA Mueller Last Filed: 12/27/22 16:55> Prescription Management I considered prescription management with: Pain Medication and Antibiotic <LYLA Mueller Last Filed: 12/27/22 16:55> Chronic Conditions Patient?s care impacted by: Other <LYLA Mueller - Last Filed: 12/27/22 16:55> Medications Administered Discontinued Medications Generic Name Dose Route Start Last Admin Trade Name Freq PRN Reason Stop Dose Admin Acetaminophen 975 mg 12/27/22 14:46 12/27/22 15:28 Acetaminophen 325 Mg Tablet PO 12/27/22 14:47 975 mg ONCE ONE Administration Hydromorphone HCl 1 mg 12/27/22 14:46 12/27/22 15:29 Hydromorphone Hcl 1 Mg/Ml Syringe IVPUSH 12/27/22 14:47 1 mg ONCE ONE Administration Protocol Sodium Chloride 1,000 mls @ 999 mls/hr 12/27/22 13:00 12/27/22 16:50 Ns IVCONT 12/27/22 14:00 Infused .Q1H1M RL Infusion Morphine Sulfate 4 mg 12/27/22 12:59 12/27/22 13:50 Morphine Sulfate 4 Mg/Ml Cartridge IVPUSH 12/27/22 13:00 4 mg ONCE ONE Administration Protocol Ondansetron HCl 4 mg 12/27/22 12:59 12/27/22 13:49 Ondansetron Hcl 4 Mg/2 Ml Vial IVPUSH 12/27/22 13:00 4 mg ONCE ONE Administration Ondansetron HCl 4 mg 12/27/22 14:46 12/27/22 15:29 Ondansetron Hcl 4 Mg/2 Ml Vial IVPUSH 12/27/22 14:47 4 mg ONCE ONE Administration <Jil Nava NP - Last Filed: 12/27/22 11:52> Medications Administered Discontinued Medications Generic Name Dose Route Start Last Admin Trade Name Freq PRN Reason Stop Dose Admin Acetaminophen 975 mg 12/27/22 14:46 12/27/22 15:28 Acetaminophen 325 Mg Tablet PO 12/27/22 14:47 975 mg ONCE ONE Administration Hydromorphone HCl 1 mg 12/27/22 14:46 12/27/22 15:29 Hydromorphone Hcl 1 Mg/Ml Syringe IVPUSH 12/27/22 14:47 1 mg ONCE ONE Administration Protocol Sodium Chloride 1,000 mls @ 999 mls/hr 12/27/22 13:00 12/27/22 16:50 Ns IVCONT 12/27/22 14:00 Infused .Q1H1M RL Infusion Morphine Sulfate 4 mg 12/27/22 12:59 12/27/22 13:50 Morphine Sulfate 4 Mg/Ml Cartridge IVPUSH 12/27/22 13:00 4 mg ONCE ONE Administration Protocol Ondansetron HCl 4 mg 12/27/22 12:59 12/27/22 13:49 Ondansetron Hcl 4 Mg/2 Ml Vial IVPUSH 12/27/22 13:00 4 mg ONCE ONE Administration Ondansetron HCl 4 mg 12/27/22 14:46 12/27/22 15:29 Ondansetron Hcl 4 Mg/2 Ml Vial IVPUSH 12/27/22 14:47 4 mg ONCE ONE Administration <LYLA Mueller - Last Filed: 12/27/22 16:55> Critical Care Time Critical Care Time Critical Care Time: Yes <LYLA Mueller - Last Filed: 12/27/22 16:55> Total Critical Care Time: 35 <LYLA Mueller - Last Filed: 12/27/22 16:55> Attestation: I have personally provided critical care time exclusive of time spent on separately billable procedures. Time includes review of lab data, radiology results, discussion with consultants, and monitoring for potential decompensation. Intervention performed as documented. <LYLA Mueller - Last Filed: 12/27/22 16:55> Discharge Plan Discharge Clinical Impression: Mesenteric panniculitis, Acute viral syndrome, Acute UTI <Jil Nava NP - Last Filed: 12/27/22 11:52> Patient Disposition: Home, Self-Care <Jil Nava NP - Last Filed: 12/27/22 11:52> Instructions: Viral Syndrome (ED) <Jil Nava NP - Last Filed: 12/27/22 11:52> Additional Instructions: Your lab workup today was unremarkable. Your CT scan did not show any acute causes severe pain. There was some mild lymph node inflammation which is commonly seen with a viral infection. Your urine test showed possibility of a UTI, antibiotics were sent to your pharmacy to cover this. Complete the entire course and do not miss any doses. Take the prescribed nausea medications as needed. Take the prescribed pain medications as needed for severe pain only. Follow-up with your doctor. If you develop new or worsening symptoms call 911 or come back to the ER for further evaluation. <Jil Nava NP - Last Filed: 12/27/22 11:52> Prescriptions: New tramadol 50 mg tablet 50 mg PO Q6H PRN (Reason: severe pain (scale score 7-10)) Qty: 10 0RF ondansetron 4 mg tablet,disintegrating 4 mg PO Q8H PRN (Reason: nausea and vomiting) Qty: 7 0RF cefuroxime axetil 250 mg tablet 250 mg PO BID 7 Days Qty: 14 0RF No Action tramadol 50 mg tablet 50 mg PO Q6H PRN (Reason: pain (scale score 1-3)) Qty: 6 0RF tamsulosin 0.4 mg capsule 0.4 mg PO BEDTIME 14 Days Qty: 14 0RF phenazopyridine [Pyridium] 100 mg tablet 100 mg PO TID PRN (Reason: Spasm) 4 Days Qty: 12 0RF naproxen 500 mg tablet 500 mg PO BID PRN (Reason: pain) 7 Days Qty: 14 0RF sertraline 50 mg tablet 50 mg PO BEDTIME <Jil Nava NP - Last Filed: 12/27/22 11:52> Referrals: Noe Salcedo MD [Primary Care Provider] - <Jil Nava NP - Last Filed: 12/27/22 11:52>
[2022-12-27 12:15] LABS: MANUAL DIFF FLAG NO
[2022-12-27 12:17] LABS: Basophils Percent Auto 0.1 % (0-2); Eosinophils Absolute Auto 0.1 X10*3/uL (0.0-0.4); Eosinophils Percent Auto 0.8 % (0-4); Hematocrit 45.2 % (37.0-47.0); Hemoglobin 15.4 g/dl (12.0-16.0); Imm Gran Abs Auto 0.04 X10*3/uL (0.00-0.03); Imm Gran Pct Auto 0.5 % (0.0-0.4); Lymphocytes Absolute Auto 1.1 X10*3/uL (1.2-4.9); Lymphocytes Percent Auto 13.7 % (20-40); Mean Corpuscular HGB Conc 34.1 g/dl (31.0-35.0); Mean Corpuscular Hemoglobin 30.6 pg (27.0-33.0); Mean Corpuscular Volume 89.9 fL (80.0-98.0); Mean Platelet Volume 9.8 fL (9.4-12.3); Monocytes Absolute Auto 0.7 X10*3/uL (0.1-1.2); Monocytes Percent Auto 9.5 % (2-11); Neutrophils Absolute Auto 5.8 x10*3/uL (2.0-8.3); Neutrophils Percent Auto 75.4 % (45-73); Platelet Count 196 X10*3/uL (160-400); Red Blood Count 5.03 X10*6/uL (4.20-5.50); Red Cell Distribution Width 13.1 % (11.0-16.0); White Blood Count 7.7 X10*3/uL (4.8-10.8)
[2022-12-27 12:30] LABS: Alanine Aminotransferase 28 U/L (0-31); Albumin Level 4.4 g/dL (3.5-5.0); Alkaline Phosphatase 71 U/L (39-117); Anion Gap 14 (12-20); Aspartate Amino Transferase 20 U/L (5-31); Bilirubin Direct 0.3 mg/dL (0.0-0.5); Bilirubin Total 1.3 mg/dL (0.0-1.0); Blood Urea Nitrogen 28 mg/dL (9-16); Calcium 9.2 mg/dL (8.4-10.2); Carbon Dioxide 26 mmol/L (22-29); Chloride 104 mmol/L (96-108); Creatinine Clr Calc Pharmacy 37.1; Estimated Glomerular Filt Rate 31; Glucose Random 94 mg/dL (60-115); Lipase 33 U/L (8-78); Potassium 3.3 mmol/L (3.3-5.1); Sodium 141 mmol/L (135-145); Total Protein 6.6 g/dL (6.5-8.0)
[2022-12-27 12:31] LABS: COVID-19 Test Negative (Negative); IDNOW Serial# 08D9AD1C
--- NOTE | 2022-12-27 13:00 | PC.NURSE ---
Pt on stretcher, airway open and patent, no obvious signs of distress, no difficulty breathing. A&ox4, skin slightly flushed, warm, and dry. Lung sounds clr and equal bilaterally. Heart sounds normal. No edema noted. Pt complaining of lower abdominal pain left and right side that radiates to back for past 3 days. Pt reports having some blood in urine this morning. Pt hx of kidney stones.
[2022-12-27] MEDS: ondansetron HCL 4 MG/2 ML VIAL IVPUSH ×2 (13:49→15:29)
[2022-12-27] MEDS: 0.9 % Sodium Chloride 1,000 ML 999 ML IVCONT (13:49)
[2022-12-27] MEDS: Morphine Sulfate 4 MG/ML CARTRIDGE IVPUSH (13:50)
--- NOTE | 2022-12-27 13:55 | PC.NURSE ---
Pt complaining of chest pain that started about 30mins ago rated 3/10 pain on left side. Pt denies radiation. Pt describes pain as pressure. Provider notified.
--- NOTE | 2022-12-27 13:56 | ECG_ITS ---
Test Reason : chest pain Blood Pressure : / mmHG Vent. Rate : 062 BPM Atrial Rate : 062 BPM P-R Int : 154 ms QRS Dur : 078 ms QT Int : 404 ms P-R-T Axes : 063 041 034 degrees QTc Int : 410 ms Normal sinus rhythm Nonspecific ST abnormality Borderline ECG When compared with ECG of 30-OCT-2022 15:36, No significant change was found Referred By: Brittany Craig Electronically Signed By:BRENDA GOYAL
[2022-12-27 14:34] LABS: Troponin-I High Sensitivity < 2.7 ng/L (<3.5-17.0)
[2022-12-27] MEDS: Acetaminophen 325 MG TABLET 975 MG PO (15:28)
[2022-12-27] MEDS: HYDROmorphone HCl 1 MG/ML SYRINGE IVPUSH (15:29)
--- NOTE | 2022-12-27 15:37 | PC.NURSE ---
Pt medicated for persistent pain. Pt pain score of 6/10
[2022-12-27 16:33] LABS: Troponin-I High Sensitivity < 2.7 ng/L (<3.5-17.0)
[2022-12-27 16:47] LABS: Appearance Urine Clear; Color Urine Yellow; Glucose Urine UA Negative (Negative); Leukocyte Esterase Urine Small (1+) (Negative); Nitrite Urine Negative (Negative); PH 6.5 (5.0-9.0); UMIC TRIGGER UACC YES; Urine Blood Negative (Negative); Urine Ketones Negative (Negative); Urine Protein Trace mg/dL (Neg-Trace)
[2022-12-27 17:01] LABS: Bacteria Urine None Seen (None Seen); Hyaline Casts Urine 0-2 /LPF (0-2); RBC Urine 0-2 /HPF (0-2); Squamous Epithelial Cell Urine 0-2 /HPF (0-2); UACC Culture Trigger YES; WBC Urine 0-5 /HPF (0-5)
== END 2022-12-27 17:56 | disposition home or self-care (01) ==
PROVIDERS: Nurse Practitioner Family; Physician Assistant; Emergency Provider Emergency Medicine Emergency Medical Services; PCP Internal Medicine
DX: K65.4 Sclerosing mesenteritis (principal); B34.9 Viral infection, unspecified; N39.0 Urinary tract infection, site not specified; R10.9 Unspecified abdominal pain; R11.2 Nausea with vomiting, unspecified; R31.9 Hematuria, unspecified; M54.50 Low back pain, unspecified; R50.9 Fever, unspecified; R07.89 Other chest pain; Z20.828 Contact with and (suspected) exposure to other viral communicable diseases; Z20.822 Contact with and (suspected) exposure to COVID-19; Z87.442 Personal history of urinary calculi; Z79.899 Other long term (current) drug therapy; Z86.718 Personal history of other venous thrombosis and embolism
CPT/HCPCS: 36415; 74176; 80048; 80076; 81001; 83690; 84484; 85025; 87086; 87635; 93005; 96361; 96374; 96375; 96376; 99284; 99285; J1170; J2270; J2405

== ENCOUNTER 2023-09-20 13:01 | Observation (INO) | payer BC, SELFPAY ==
--- NOTE | ~2023-09-20 | MR_ITS ---
EXAMINATION: MR BRAIN WITHOUT CONTRAST CLINICAL INFORMATION: Left facial weakness COMPARISON: Same-day CT head TECHNIQUE: MRI of the brain was obtained using routine sequences without contrast. FINDINGS: There is no reduced diffusion to suggest acute infarct. Susceptibility weighted sequence is within normal limits. No mass effect, extra-axial collection, midline shift, or other herniation. The ventricles and sulci are normal in size and configuration. Scattered periventricular and subcortical T2/FLAIR hyperintense foci are nonspecific but likely represent chronic microvascular ischemic change. Intracranial flow voids are preserved. Mucosal thickening in the ethmoid air cells. Partially opacified left mastoid air cells. No focal expansile/destructive osseous lesion. MR/MR head/brain wo con IMPRESSION: No acute infarction or mass effect. Mild chronic microvascular ischemic change.
--- NOTE | ~2023-09-20 | XR_ITS ---
EXAMINATION: XR CHEST CLINICAL INFORMATION: Stroke COMPARISON: US radiograph from 10/30/2022 TECHNIQUE: Frontal view of the chest was obtained. FINDINGS: No focal consolidation. No pneumothorax. Trachea is midline. Cardiac mediastinal silhouette is not enlarged. No large pleural effusion. Osseous structures are intact. Soft tissues are unremarkable. XR/XR chest 1V IMPRESSION: No acute cardiopulmonary process.
--- NOTE | ~2023-09-20 | CT_ITS ---
EXAMINATION: CT HEAD WITHOUT CONTRAST (STROKE PROTOCOL) CLINICAL INFORMATION: Stroke protocol. COMPARISON: CT head from 05/08/2015 TECHNIQUE: Contiguous axial imaging was performed from the skull base to vertex without intravenous administration of contrast. This CT examination was performed using dose optimization techniques as appropriate, variously including the following: *Automated exposure control *Adjustment of mA and/or kV according to patient size (this includes techniques or standardized protocols for targeted exams where dose is matched to indication/reason for exam; i.e. extremities or head) *Use of iterative reconstruction technique DLP: 666 mGy-cm FINDINGS: There is no evidence of acute intracranial hemorrhage or territorial infarction. No abnormal mass effect or midline shift is seen. [place] to white matter differentiation is well preserved. No extra-axial fluid collections are identified. The ventricles are normal in size. There is no abnormal attenuation within the brain parenchyma. The osseous structures and soft tissues are normal. The mastoid air cells and visualized portions of the paranasal sinuses are well aerated. CT/CT head for stroke IMPRESSION: No acute intracranial pathology. This critical result was discussed with DR GONZALEZ by telephone on 09/20/2023 1:23 PM and it was ascertained that the content and urgency of the report was understood at the time of direct communication.
--- NOTE | 2023-09-20 13:07 | ECG_ITS ---
Test Reason : STROKE Blood Pressure : / mmHG Vent. Rate : 088 BPM Atrial Rate : 088 BPM P-R Int : 146 ms QRS Dur : 076 ms QT Int : 374 ms P-R-T Axes : 049 012 035 degrees QTc Int : 452 ms Normal sinus rhythm Normal ECG When compared with ECG of 27-DEC-2022 14:01, No significant change was found Referred By: Tyron Robins Electronically Signed By:CHRISTINE ROJO MD
--- NOTE | 2023-09-20 13:09 | ED_ITS ---
HPI - Neuro Symptoms/Deficit General Chief Complaint: Stroke Stated Complaint: STROKE ALERT,LKWT 6PM,L DROOP/SPEECH DIF PER EMS Time Seen by Provider: 09/20/23 13:06 Source: patient and EMS Mode of arrival: EMS Limitations: no limitations History of Present Illness HPI Narrative: a 57-year-old female with no significant past medical history presented with left facial droop and aphasia. Patient's symptoms started since 18:00 last night about 19 hours ago by left facial droop today progress to expressive aphasia and dysarthria. Patient not taking anticoagulation therapy, able to move 4 extremity otherwise. 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 Related Data Home Medications Medication Instructions Recorded Confirmed sertraline 50 mg tablet 50 mg PO BEDTIME 09/16/20 08/29/22 Previous Rx's Medication Instructions Recorded naproxen 500 mg tablet 500 mg PO BID PRN pain 7 days #14 08/21/22 tabs phenazopyridine 100 mg tablet 100 mg PO TID PRN Spasm 4 days #12 08/21/22 (Pyridium) tabs tamsulosin 0.4 mg capsule 0.4 mg PO BEDTIME 14 days #14 caps 08/21/22 tramadol 50 mg tablet 50 mg PO Q6H PRN pain (scale score 08/21/22 1-3) #6 tabs cefuroxime axetil 250 mg tablet 250 mg PO BID 7 days #14 tabs 12/27/22 ondansetron 4 mg disintegrating 4 mg PO Q8H PRN nausea and 12/27/22 tablet vomiting #7 tabs tramadol 50 mg tablet 50 mg PO Q6H PRN severe pain 12/27/22 (scale score 7-10) #10 tabs Allergies Allergy/AdvReac Type Severity Reaction Status Date / Time metoclopramide [From Reglan] Allergy Severe CONVULSIONS Verified 09/20/23 13:26 amoxicillin Allergy Intermediate Vomiting Verified 09/20/23 13:26 bee pollen [BEE STINGS] Allergy Intermediate SWELLING Verified 09/20/23 13:26 Iodinated Contrast Media Allergy Intermediate HIVES Verified 09/20/23 13:26 [IV Dye, Iodine Containing] Cephalosporins AdvReac Intermediate VOMITING Verified 09/20/23 13:26 erythromycin base AdvReac Intermediate VOMITING Verified 09/20/23 13:26 [Erythromycin Base] Penicillins AdvReac Intermediate VOMITING Verified 09/20/23 13:26 Review of Systems 2 Review of Systems: All other systems are reviewed and are negative Constitutional: Reports as per HPI and Reports no additional constitutional complaints Eyes: Reports as per HPI and Reports no additional eye complaints Reports system reviewed and no additional complaints, except as documented Cardiovascular: Reports as per HPI and Reports no additional cardiovascular complaints Respiratory: Reports as per HPI and Reports no additional respiratory complaints Gastrointestinal: Reports as per HPI and Reports no additional gastrointestinal complaints Genitourinary: Reports no additional female genitourinary complaints Musculoskeletal: Reports no additional musculoskeletal complaints Skin/Breast: Reports system reviewed and no additional complaints, except as docu Psychiatric: Reports no additional psychiatric complaints Endocrine: Reports no additional endocrine complaints Hematologic/Lymphatic: Reports no additional hematologic/lymphatic complaints Allergic/Immunologic: Reports no additional allergic/immunologic complaints Reports system reviewed and no additional complaints, except as documented and Reports Abnormal speech present PMFSH Past Medical History Onset Date is defined in the Problem List Problems that require an onset date and time if occurred within 24 hrs of arrival to the ED Aortic Dissection and Rupture; Neurologic impairment; Cardiopulmonary Arrest; Endotracheal Intubation; Insertion or Replacement of Mechanical Circulatory Assist Device Medical History Post-operative nausea and vomiting COVID-19 vaccine series completed History of COVID-19 Renal calculi Medullary sponge kidney DVT (deep venous thrombosis) Chronic kidney disease Surgical History Hx of lithotripsy Hx of cystoscopy History of ankle surgery Social History Social History Are you a primary home health care worker to a significant other at home: No Do you presently have visiting nurse or other home services: No Alcohol intake: never Patient Tobacco Use Status: Never used Tobacco Advance Directives: No Advance Directives Information Provided: Yes Physical Exam 2 Vital Signs: Vital Signs: Last Vital Signs Temp 98.6 F 09/20/23 13:26 Pulse 96 09/20/23 13:35 Resp 16 09/20/23 13:35 BP 152/87 H 09/20/23 13:35 Pulse Ox 98 09/20/23 13:35 O2 Del Method Room Air 09/20/23 13:35 BMI result Body Mass Index 29.5 Vital signs have been reviewed and appear to be correct. Blood pressure elevated. Heart rate normal. Respiratory rate normal. Temperature normal. Oxygen saturation normal. Appearance: Alert. Oriented X3. No acute distress. Head: Normal external exam. Normocephalic. Atraumatic. No Cyr signs noted. No raccoon eyes noted Eyes: PERRLA. EOMI. Conjunctiva and sclera normal. Eyelids normal. ENT: TM's Normal. Pharynx normal. Uvula midline. Moist mucous membranes. No trismus noted. No drooling noted. No muffled voice noted. Neck: Normal inspection. Neck supple. FROM. No adenopathy. Thyroid Normal. No meningeal signs. No neck mass noted. CVS: Normal heart rate and rhythm. Heart sound normal. No murmurs noted. Pulses normal throughout. Respiratory: No respiratory distress. Painless inspiration. Breath sounds normal. No wheezes/rales/rhonchi noted. Chest nontender. No accessory muscle usage noted or decreased air movement noted. Abdomen: Soft and nontender. Bowel sounds normal in all 4 quadrants. No distention noted. No organomegaly noted. No visible injury noted. Back: No CVA tenderness. Full range of motion noted. Skin: Skin warm and dry. Normal skin color. Normal skin turgor. No rashes/lesions/lacerations noted. Extremities: No lower extremity edema. Extremities exhibit normal range of motion. Extremities nontender. Neuro: Oriented X 3. Cranial nerve exam: Left facial droop No motor deficit. No sensory deficit. Reflexes normal. Course Reevaluation(s) Reevaluation #1: left facial droop difficult clinically to differentiate between upper and lesion, please refer to Dr. Quinones's note. Head CT is unremarkable. Await for MRI of the brain. The case was signed out to Dr. Whitman Time: 15:34 Medical Decision Making Differential Diagnosis Differential Diagnoses: The differential diagnosis associated with the presentation includes ( upper motor neuron lesion, lower motor neuron lesion, electrolyte abnormality, severe anemia. ) Admission/Observation Consideration of admission/observation: Escalation of care including admission/observation considered Consult Healthcare Provider Management of the patient was discussed with: Booster Station Operator (Dr. Quinones) Lab Data MDM Lab Attestation statement: I reviewed the patient's lab results. 09/20/23 13:23 09/20/23 14:02 Labs: Lab Results 09/20/23 09/20/23 09/20/23 Range/Units 13:06 13:23 14:02 WBC 5.3 (4.8-10.8) X10*3/uL RBC 4.94 (4.20-5.50) X10*6/uL Hgb 15.1 (12.0-16.0) g/dl Hct 45.0 (37.0-47.0) % MCV 91.1 (80.0-98.0) fL MCH 30.6 (27.0-33.0) pg MCHC 33.6 (31.0-35.0) g/dl RDW 12.9 (11.0-16.0) % Plt Count 198 (160-400) X10*3/uL MPV 9.9 (9.4-12.3) fL Immature Gran % (Auto) 0.4 (0.0-0.4) % Neut % (Auto) 57.7 (45-73) % Lymph % (Auto) 31.1 (20-40) % Evans % (Auto) 8.7 (2-11) % Eos % (Auto) 1.3 (0-4) % Baso % (Auto) 0.8 (0-2) % Lymph # (Auto) 1.7 (1.2-4.9) X10*3/uL Evans # (Auto) 0.5 (0.1-1.2) X10*3/uL Eos # (Auto) 0.1 (0.0-0.4) X10*3/uL Baso # (Auto) 0.0 (0.0-0.2) X10*3/uL Abs Immat Gran (auto) 0.02 (0.00-0.03) X10*3/uL Absolute Neuts (auto) 3.1 (2.0-8.3) x10*3/uL Absolute Nucleated RBC 0.000 (0.0-0.012) X10*3/uL Nucleated RBC % (auto) 0.0 (0.0-0.2) /100WBC PT 10.7 L (11.1-13.3) SEC Whole Blood PT 14.4 H (11.1-13.5) sec INR 0.9 (0.9-1.1) Whole Blood INR 1.0 (0.9-1.1) APTT 30.3 (26.0-36.4) SEC Sodium 142 (135-145) mmol/L Potassium 3.5 (3.3-5.1) mmol/L Chloride 111 H (96-108) mmol/L Carbon Dioxide 24 (22-29) mmol/L Anion Gap 11 L (12-20) BUN 18 H (9-16) mg/dL Creatinine 1.19 (0.5-1.4) mg/dL Estim Creat Clear Calc 55.8 Estimated GFR 47 POC Glucose 90 (60-115) mg/dL Random Glucose 98 (60-115) mg/dL Calcium 9.6 (8.4-10.2) mg/dL Total Creatine Kinase 123 (26-140) U/L Troponin I High Sens < 2.7 (<3.5-17.0) ng/L Independent Interpretation I performed an independent interpretation of an: EKG ( Normal sinus rhythm at 80 beats per minutes, normal axis deviation, normal intervals, no ST-T changes.), Plain X-Ray ( No acute intrathoracic pathology.) and CT Scan ( head: No acute intrathoracic pathology.) Radiology Impression Discussion of test interpretation with radiology: I have reviewed the radiologist's reading. Chronic Conditions Patient?s care impacted by: Other ( History of Miramontes's palsy) NIH Stroke Scale Time: 13:18 Level of Consciousness: Alert Level of Consciousness Questions: Answers both questions correctly Level of Consciousness Commands: Performs both tasks correctly Best Gaze: Normal Visual: No visual loss Facial Palsy: Partial paralysis Motor Arm (Right): No drift Motor Arm (Left): No drift Motor Leg (Right): No drift Motor Leg (Left): No drift Limb Ataxia: Absent Sensory: Normal Best Language: Mild to moderate aphasia Dysarthia: Normal Extinction and Inattention: No abnormality Score: 3 Discharge Plan Discharge Clinical Impression: Miramontes's palsy Patient Disposition: Still a Patient Prescriptions: No Action tramadol 50 mg tablet 50 mg PO Q6H PRN (Reason: pain (scale score 1-3)) Qty: 6 0RF tamsulosin 0.4 mg capsule 0.4 mg PO BEDTIME 14 Days Qty: 14 0RF phenazopyridine [Pyridium] 100 mg tablet 100 mg PO TID PRN (Reason: Spasm) 4 Days Qty: 12 0RF naproxen 500 mg tablet 500 mg PO BID PRN (Reason: pain) 7 Days Qty: 14 0RF tramadol 50 mg tablet 50 mg PO Q6H PRN (Reason: severe pain (scale score 7-10)) Qty: 10 0RF ondansetron 4 mg tablet,disintegrating 4 mg PO Q8H PRN (Reason: nausea and vomiting) Qty: 7 0RF cefuroxime axetil 250 mg tablet 250 mg PO BID 7 Days Qty: 14 0RF sertraline 50 mg tablet 50 mg PO BEDTIME
[2023-09-20 13:26] VITALS: BP 149/75; BP 150/93; PULSE 120; PULSE 85; RESP 14; TEMP 37; O2SAT 98; O2SAT 99; BMI 29.5
[2023-09-20 13:27] LABS: MANUAL DIFF FLAG NO
[2023-09-20 13:29] LABS: Basophils Percent Auto 0.8 % (0-2); Eosinophils Absolute Auto 0.1 X10*3/uL (0.0-0.4); Eosinophils Percent Auto 1.3 % (0-4); Hemoglobin 15.1 g/dl (12.0-16.0); Imm Gran Abs Auto 0.02 X10*3/uL (0.00-0.03); Imm Gran Pct Auto 0.4 % (0.0-0.4); Lymphocytes Absolute Auto 1.7 X10*3/uL (1.2-4.9); Lymphocytes Percent Auto 31.1 % (20-40); Mean Corpuscular HGB Conc 33.6 g/dl (31.0-35.0); Mean Corpuscular Hemoglobin 30.6 pg (27.0-33.0); Mean Corpuscular Volume 91.1 fL (80.0-98.0); Mean Platelet Volume 9.9 fL (9.4-12.3); Monocytes Absolute Auto 0.5 X10*3/uL (0.1-1.2); Monocytes Percent Auto 8.7 % (2-11); Neutrophils Absolute Auto 3.1 x10*3/uL (2.0-8.3); Neutrophils Percent Auto 57.7 % (45-73); Platelet Count 198 X10*3/uL (160-400); Red Blood Count 4.94 X10*6/uL (4.20-5.50); Red Cell Distribution Width 12.9 % (11.0-16.0); White Blood Count 5.3 X10*3/uL (4.8-10.8)
[2023-09-20 13:29] LABS: Glucose, Whole Blood 90 mg/dL (60-115)
[2023-09-20 13:35] VITALS: BP 152/87; PULSE 96; RESP 16; O2SAT 98
[2023-09-20 13:35] LABS: INTERNATIONAL NORM RATIO 0.9 (0.9-1.1); Prothrombin Time 10.7 SEC (11.1-13.3)
[2023-09-20 13:37] LABS: Partial Thromboplastin Time 30.3 SEC (26.0-36.4)
[2023-09-20 13:38] LABS: Prothrombin Time Whole Bld POC 14.4 sec (11.1-13.5)
[2023-09-20 13:38] LABS: Stroke Lab Use COMPLETE
--- NOTE | 2023-09-20 13:41 | PC.NURSE ---
Pt to ED via EMS as Stroke Alert. Pt felt off around 6pm last night but due to her hx of Miramontes's Palsy did not seek medical attention. Pt reports symptoms worsened. Pt has left sided facial droop, expressive aphasia, garbled speech with right sided weakness. Pt reports pins/needles sensaton to right forearm.
[2023-09-20 13:57] LABS: Troponin-I High Sensitivity < 2.7 ng/L (<3.5-17.0)
--- NOTE | 2023-09-20 14:01 | P.CNNE_ITS ---
History of Present Illness Data of Consult Service Date: 09/20/23 Primary Care Provider: Noe Salcedo MD [facility] Reason for consult: Difficulty speaking 57 years old woman with past medical history of Miramontes's palsy came to hospital with difficulty speaking that started many hours before she came to hospital. In emergency room she was noted to have dysarthria/aphasia type of symptoms but ER physician was not sure what was going on and I was asked to see her. I saw her in emergency room. There was no sign of any recent seizure or trauma or cold or flu-like illness. There was no complaint of any arm or leg weakness. Review of Systems 2 Review of Systems: No recent cold or flu-like illness PMFSH Past Medical History Medical History Post-operative nausea and vomiting COVID-19 vaccine series completed History of COVID-19 Renal calculi Medullary sponge kidney DVT (deep venous thrombosis) Chronic kidney disease Surgical History Surgical History Hx of lithotripsy Hx of cystoscopy History of ankle surgery Social History Social History Are you a primary residential care facility manager to a significant other at home: No Do you presently have visiting nurse or other home services: No Alcohol intake: never Patient Tobacco Use Status: Never used Tobacco Advance Directives: No Advance Directives Information Provided: Yes Meds Allergies Allergy/AdvReac Type Severity Reaction Status Date / Time metoclopramide [From Reglan] Allergy Severe CONVULSIONS Verified 09/20/23 13:26 amoxicillin Allergy Intermediate Vomiting Verified 09/20/23 13:26 bee pollen [BEE STINGS] Allergy Intermediate SWELLING Verified 09/20/23 13:26 Iodinated Contrast Media Allergy Intermediate HIVES Verified 09/20/23 13:26 [IV Dye, Iodine Containing] Cephalosporins AdvReac Intermediate VOMITING Verified 09/20/23 13:26 erythromycin base AdvReac Intermediate VOMITING Verified 09/20/23 13:26 [Erythromycin Base] Penicillins AdvReac Intermediate VOMITING Verified 09/20/23 13:26 Home Medications Medication Instructions Recorded Confirmed Last Taken Type sertraline 50 mg tablet 50 mg PO BEDTIME 09/16/20 08/29/22 08/20/22 19:00 History Physical Exam 2 Vital Signs: Vital Signs: Last Vital Signs Temp 98.6 F 09/20/23 13:26 Pulse 96 09/20/23 13:35 Resp 16 09/20/23 13:35 BP 152/87 H 09/20/23 13:35 Pulse Ox 98 09/20/23 13:35 O2 Del Method Room Air 09/20/23 13:35 BMI result Body Mass Index 29.5 Neuro: Other: She was alert and awake with significantly pressured speech resulting in reduced fluency and spontaneity of speech. Comprehension was intact. Stuttering speech was noted that seem to be more pressure type. There was mild right-sided facial weakness. I closure in blinking was symmetrical. There was no obvious focal arm or leg weakness. Visual solis are full. Extraocular muscles are intact. Plantars were flexors. Results Labs 09/20/23 13:23 09/20/23 13:23 Labs: Short CBC 09/20/23 Range/Units 13:23 WBC 5.3 (4.8-10.8) X10*3/uL Hgb 15.1 (12.0-16.0) g/dl Hct 45.0 (37.0-47.0) % Plt Count 198 (160-400) X10*3/uL Noncontrast head CT did not reveal any significant abnormality per Assessment and Plan (1) Difficulty speaking: Status: Acute 57 years old woman with previous history of Miramontes's palsy? came to hospital with difficulty speaking. Her examination is suggestive of pressured speech that is more commonly noted due to psychological reasons. She does have mild right- sided facial weakness. Noncontrast head CT is okay. I recommend obtaining a noncontrast MRI of brain to definitively finger this out. Procedures Date of Service Date of Service: 09/20/23
[2023-09-20 14:16] LABS: Anion Gap 11 (12-20)
[2023-09-20 14:21] LABS: Blood Urea Nitrogen 18 mg/dL (9-16); Calcium 9.6 mg/dL (8.4-10.2); Carbon Dioxide 24 mmol/L (22-29); Chloride 111 mmol/L (96-108); Creatinine Clr Calc Pharmacy 55.8; Estimated Glomerular Filt Rate 47; Glucose Random 98 mg/dL (60-115); Potassium 3.5 mmol/L (3.3-5.1); Sodium 142 mmol/L (135-145)
--- NOTE | 2023-09-20 14:45 | PC.NURSE ---
MD Robins made aware pt needs order for sedation for MRI due to claustrophobia.
--- NOTE | 2023-09-20 14:55 | PC.NURSE ---
MRI screening sheet completed and faxed.
[2023-09-20] MEDS: LORazepam 2 MG/ML VIAL 1 MG IVPUSH (15:38)
[2023-09-20 16:21] VITALS: BP 120/75; PULSE 85; RESP 16; O2SAT 93
[2023-09-20 19:13] VITALS: BP 114/79; PULSE 86; RESP 16; TEMP 36.9; O2SAT 95
--- NOTE | 2023-09-20 20:20 | PHA.MEDREC ---
Pharmacy Consult ? Medication Reconciliation Pharmacy has completed the medication reconciliation.patient reported indy Tavarez CPhT
--- NOTE | 2023-09-20 22:14 | P.HPHOSP_ITS ---
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 Patient states symptoms began last night at 18:00 when she noticed she had a right-sided facial droop. Patient has a history of Miramontes's palsy in 2022 that lasted for 1 week, and she thought she was having a repeat occurrence. Spoke to her daughter at 22:00 without incident and then patient went to bed. When she awoke the next morning she she noted multiple right-sided deficits: states the right side of her face felt ?weak and tired?, had right-sided gum and jaw pain. Also reports both eyes felt tired and had epiphoria of right eye, as well as experienced pins and needles in her right hand and pain in her right knee. When pt first spoke to her daughter in the morning also reports both difficulty speaking and with word-finding. No headache or acute vision loss. No ataxia or imbalance. Pt also endorses left shoulder pain that has been ongoing for the past two weeks. Has seen her PCP for this and received a cortisone injection, but with little relief. Denies chest pain/pressure, palpitations. No shortness of breath. Denies fever, chills, nausea, vomiting, abdominal pain. ED clinician contacted Neurology who saw patient ED and who is examination was suggestive of pressured speech that was more commonly noted due to psychological rather than neurological reasons. Patient has been on sertraline since 2018 when her was 1st diagnosed and being treated for cancer. Patient apparently had not been taking her sertraline for the past [address] Quinones felt patient's symptoms were stress related rather than neurological. Pt was set to be discharged with plan to follow up with PCP, however she failed nurse's swallow screen x2. In the ED pt was initially mildly hypertensive up to 152/87, otherwise vitals WNL. Labs were grossly unremarkable. CXR showed no acute cardiopulmonary process. CT?of head negative for acute intracranial pathology. MRI of head/brain found no acute infarction or mass effect, but did show mild chronic microvascular ischemic change. EKG demonstrated normal sinus rhythm without significant ST elevations or depressions. Pt was treated with lorazepam. Pt will be admitted to the hospital under observation for further evaluation of dysphagia. Review of Systems 2 Review of Systems: Negative except for that stated in the [facility] Medical History (Updated 09/20/23 @ 23:27 by LYLA Gracia) Migraine headache Post-operative nausea and vomiting COVID-19 vaccine series completed History of COVID-19 Renal calculi Medullary sponge kidney DVT (deep venous thrombosis) Chronic kidney disease Surgical History Hx of lithotripsy Hx of cystoscopy History of ankle surgery Social History Are you a primary care coordinator to a significant other at home: No Do you presently have visiting nurse or other home services: No Alcohol intake: never Patient Tobacco Use Status: Never used Tobacco Advance Directives: No Advance Directives Information Provided: Yes Meds Allergies Allergy/AdvReac Type Severity Reaction Status Date / Time metoclopramide [From Reglan] Allergy Severe CONVULSIONS Verified 09/20/23 13:26 amoxicillin Allergy Intermediate Vomiting Verified 09/20/23 13:26 bee pollen [BEE STINGS] Allergy Intermediate SWELLING Verified 09/20/23 13:26 Iodinated Contrast Media Allergy Intermediate HIVES Verified 09/20/23 13:26 [IV Dye, Iodine Containing] Cephalosporins AdvReac Intermediate VOMITING Verified 09/20/23 13:26 erythromycin base AdvReac Intermediate VOMITING Verified 09/20/23 13:26 [Erythromycin Base] Penicillins AdvReac Intermediate VOMITING Verified 09/20/23 13:26 Home Medications Medication Instructions Recorded Confirmed Last Taken Type sertraline 50 mg tablet 50 mg PO BEDTIME 09/16/20 09/20/23 09/19/23 History Physical Exam 2 Vital Signs and Narrative: Vital Signs: Last Vital Signs Temp 98.4 F 09/20/23 19:13 Pulse 86 09/20/23 19:13 Resp 16 09/20/23 19:13 BP 114/79 09/20/23 19:13 Pulse Ox 95 09/20/23 19:13 O2 Del Method Room Air 09/20/23 19:13 BMI result Body Mass Index 29.5 Constitutional: Alert, in no acute distress. Mental Status: Oriented to person, place and time. Eyes: Pupils are equal, round, and reactive to light. Ear, Nose, and Throat: Oropharynx clear, mucous membranes moist. Ears and nose without deformities. Trachea midline. Respiratory: Clear to auscultation bilaterally. No wheezing, rales, or rhonchi. Cardiovascular: S1, S2 regular. No murmurs, rubs, or gallops. Gastrointestinal: Abdomen soft, non-tender, non-distended. Normal bowel sounds. Neurologic: Pt with slightly delayed speech, stuttering when speaking, noted right-sided facial weakness with speaking. ?mild right-sided facial droop at rest. Able to raise both eyebrow. Moves all extremities spontaneously but with mild right-sided weakness of lower extremity. Skin: Warm, dry. Musculoskeletal: No cyanosis or clubbing. Extremities: No edema. Psychiatric: Normal mood and affect. Results Labs 09/20/23 13:23 09/20/23 14:02 Labs: Laboratory Results - last 24 hr 09/20/23 09/20/23 09/20/23 13:06 13:23 14:02 MCV 91.1 MCH 30.6 MCHC 33.6 RDW 12.9 Plt Count 198 MPV 9.9 Immature Gran % (Auto) 0.4 Neut % (Auto) 57.7 Lymph % (Auto) 31.1 [place] % (Auto) 8.7 Eos % (Auto) 1.3 Baso % (Auto) 0.8 Lymph # (Auto) 1.7 [place] # (Auto) 0.5 Eos # (Auto) 0.1 Baso # (Auto) 0.0 Abs Immat Gran (auto) 0.02 Absolute Neuts (auto) 3.1 Absolute Nucleated RBC 0.000 Nucleated RBC % (auto) 0.0 PT 10.7 L Whole Blood PT 14.4 H INR 0.9 Whole Blood INR 1.0 APTT 30.3 Anion Gap 11 L Estim Creat Clear Calc 55.8 Estimated GFR 47 POC Glucose 90 Random Glucose 98 Calcium 9.6 Total Creatine Kinase 123 Imaging Radiologist's Impressions: Impressions Head CT 09/20/23 13:11 IMPRESSION: No acute intracranial pathology. This critical result was discussed with DR ELMOGY by telephone on 09/20/2023 1:23 PM and it was ascertained that the content and urgency of the report was understood at the time of direct communication. Chest X-Ray 09/20/23 13:40 IMPRESSION: No acute cardiopulmonary process. Brain MRI 09/20/23 16:10 IMPRESSION: No acute infarction or mass effect. Mild chronic microvascular ischemic change. 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 Pt was treated with lorazepam. Pt will be admitted to the hospital under observation for further evaluation of dysphagia. Dysarthria/dysphagia Unclear etiology: Stress related versus neurologic Stroke workup negative: CT of head and MRI of brain negative for acute intracranial pathology Neurology consulted, examination points more toward stress related Patient failed nurses swallow screen x2 Patient will be made NPO We will place on maintenance IVF Formal speech and swallow evaluation tomorrow Will hold on additional imaging such as barium swallow pending speech evaluation input Left shoulder pain Has been ongoing for the past 2 weeks Has seen PCP, received cortisone injection with little relief Patient NPO We will give ketorolac p.r.n. for pain management Depression/anxiety Hold sertraline for now Resume when no longer NPO Full Code Attending:?Dr. Almeida DVT Prophylaxis: Lovenox Patient be admitted to the hospital under observation for further evaluation of dysarthria/dysphagia. Quality Stroke Does the patient have a stroke diagnosis?: No VTE Prior VTE?: Yes VTE Risk Level:: Medical - moderate - high VTE Device Contraindication: Treatment Not Indicated VTE Drug Contraindication: N/A - Med Ordered
--- NOTE | 2023-09-20 23:30 | PC.NURSE ---
This feature writer assumed care of this Pt at 2300. Pt A&Ox3, speaking in full sentences, reporting new stuttering with right facial drop. Pt able to move all extremities. Pt reports 6/10 left shoulder pain which started 2 weeks ago, Pt medicated per NOV.
[2023-09-20] MEDS: Lactated Ringers 1,000 ML 100 ML IVCONT (23:37)
[2023-09-20] MEDS: Enoxaparin Sodium 40 MG/0.4 ML SYRINGE SUBCUT (23:40)
[2023-09-20] MEDS: Ketorolac Tromethamine 15 MG/ML VIAL IVPUSH (23:40)
[2023-09-20] MEDS: 0.9 % Sodium Chloride Flush 3 ML SYRINGE IVFLUSH (23:41)
[2023-09-21] VITALS (7 sets, daily range): BP systolic 110–140; BP diastolic 55–81; PULSE 59–89; RESP 16–18; TEMP 36–37; O2SAT 92–98; BMI 28.2
--- NOTE | 2023-09-21 00:12 | PC.NURSE ---
Pt will be transported to 375 by signal operator technical. Pt aware of plan.
--- NOTE | 2023-09-21 06:18 | PC.NURSE ---
pt did not void all night, stating she didn't have to. bladder scanned pt at 0615 for 115 ml.
--- NOTE | 2023-09-21 07:28 | PHA.MEDREC ---
Pharmacy Consult ? Medication Reconciliation Pharmacy has completed the medication reconciliation. CHECKED MEDS PUT IN BY NURSING OVERNIGHT
[2023-09-21] MEDS: Lactated Ringers 1,000 ML 100 ML IVCONT ×2 (08:43→18:15)
[2023-09-21] MEDS: 0.9 % Sodium Chloride Flush 3 ML SYRINGE IVFLUSH ×2 (08:43→15:56)
[2023-09-21] MEDS: Ketorolac Tromethamine 15 MG/ML VIAL IVPUSH ×2 (09:36→15:55)
[2023-09-21] MEDS: LORazepam 0.5 MG TABLET PO (09:39)
--- NOTE | 2023-09-21 11:43 | P.PNIM_ITS ---
Subjective Subjective Date of Service: 09/21/23 Interval History: Seen and evaluated Stuttering and reporting feeling weak Denies any focal weakness or numbness Pending [employer] ACTIVITIES DIRECTOR eval Review of Systems Review of Systems: Yes all other systems are reviewed and are negative Physical Exam 2 Vital Signs: Vital Signs: Last Vital Signs Temp 96.9 F 09/21/23 11:25 Pulse 65 09/21/23 11:25 Resp 18 09/21/23 11:25 BP 122/79 09/21/23 11:25 Pulse Ox 98 09/21/23 11:25 O2 Del Method Room Air 09/21/23 11:25 BMI result Body Mass Index 28.2 Const: Other: Constitutional : Awake, interactive, not in distress Neck : Normal inspection, Supple Cardiovascular : RRR, no JVP, no lower extremity edema Respiratory : good bilateral air entry, no crackles, wheezes or rhonchi Gastrointestinal: soft, lax, Normal bowel sounds, Non tender Skin : Warm, Dry Neurological : Alert & oriented x3, No focal deficit , stuttering, fluent, minimal drop in the right side of tongue, CN 2-12 within normal Objective Data Active Medications Enoxaparin Sodium (Enoxaparin Sodium 40 Mg/0.4 Ml Syringe) 40 mg SUBCUT BEDTIME [facility] Last Admin: 09/20/23 23:40 Dose: 40 mg Documented By: JEFF Lactated Ringer's (Lr) 1,000 mls @ 100 mls/hr IVCONT .Q10H [facility] Last Admin: 09/21/23 08:43 Dose: 100 mls/hr Documented By: LISA Ketorolac Tromethamine (Ketorolac Tromethamine 15 Mg/Ml Vial) 15 mg IVPUSH Q6H PRN PRN Reason: Pain, Moderate(Pain Scale 4-6) Last Admin: 09/21/23 09:36 Dose: 15 mg Documented By: LISA Ondansetron HCl (Ondansetron Hcl 4 Mg/2 Ml Vial) 4 mg IVPUSH Q8H PRN PRN Reason: Nausea and Vomiting Sertraline HCl (Sertraline Hcl 50 Mg Tablet) 50 mg PO BEDTIME [facility] Sodium Chloride (0.9 % Sodium Chloride Flush 3 Ml Syringe) 3 ml IVFLUSH QSHIFT [facility] Last Admin: 09/21/23 08:43 Dose: 3 ml Documented By: LISA Labs 09/20/23 13:23 09/20/23 14:02 Labs: Laboratory Results - last 24 hr 09/20/23 09/20/23 09/20/23 13:06 13:23 14:02 MCV 91.1 MCH 30.6 MCHC 33.6 RDW 12.9 Plt Count 198 MPV 9.9 Immature Gran % (Auto) 0.4 Neut % (Auto) 57.7 Lymph % (Auto) 31.1 [place] % (Auto) 8.7 Eos % (Auto) 1.3 Baso % (Auto) 0.8 Lymph # (Auto) 1.7 [place] # (Auto) 0.5 Eos # (Auto) 0.1 Baso # (Auto) 0.0 Abs Immat Gran (auto) 0.02 Absolute Neuts (auto) 3.1 Absolute Nucleated RBC 0.000 Nucleated RBC % (auto) 0.0 PT 10.7 L Whole Blood PT 14.4 H INR 0.9 Whole Blood INR 1.0 APTT 30.3 Anion Gap 11 L Estim Creat Clear Calc 55.8 Estimated GFR 47 POC Glucose 90 Random Glucose 98 Calcium 9.6 Total Creatine Kinase 123 Assessment and Plan (1) Swallowing dysfunction: Status: Acute (2) Difficulty speaking: Status: Acute Plan Pt is a 57-year-old female with a PMH significant for?CKD 3, migraine headaches, 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 Pt was treated with lorazepam. Pt will be admitted to the hospital under observation for further evaluation of dysphagia. Swallowing problem Psychgenic versus neurologic CT of head and MRI of brain negative for acute intracranial pathology Neurology consulted, examination points more toward stress related Patient failed nurses swallow screen x2 maintenance IVF [employer] ACTIVITIES DIRECTOR evaluation, can tolerate solids but needs modified liquid Monitor response Stuttering could be neurogenic vs psychogenic MRI negative for any acute findings [employer] ACTIVITIES DIRECTOR following Neurology following Monitor response Left shoulder pain 2/2 Osteoarthritis Has seen PCP, received cortisone injection with little relief ketorolac p.r.n. for pain management Depression/anxiety restart sertraline for now Full Code DVT Prophylaxis: Lovenox Quality Stroke Does the patient have a stroke diagnosis?: No VTE Prior VTE?: Yes VTE Risk Level:: Medical - moderate - high VTE Device Contraindication: Treatment Not Indicated VTE Drug Contraindication: N/A - Med Ordered
--- NOTE | 2023-09-21 15:51 | MHC.CM.PN ---
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
[2023-09-21] MEDS: Butalb/Acetamin/Caff 50/325/40 TABLET 1 TAB PO (15:54)
--- NOTE | 2023-09-21 17:06 | MHC.SL.SWA ---
Speech Pathologist Impression: Risk of aspiration, Pharyngeal phase dysphagia, Acquired fluency disorder Risk of Aspiration Due to: Neurological Condition Dysphasia Diet Status: DOWNGRADE liquids to HT Liquid Consistency and Strategies for Safe Swallow: Liquid Intake Recommendation: Honey Thick Liquid Intake Strategies: Small Sips No Straws Solid Food Consistency: Dietary Recommendations: Regular Additional Modifications to Solid Foods: Recommend REGULAR solids with HONEY THICK liquids (no straws), pills WHOLE in thickened liquid, or crushed in puree if needed. 1:1 supervision and aspiration precautions. Oral Medication Intake: Whole with Liquid Please contact the pharmacy regarding appropriate crushable or liquid drug formulations that are available whenever modified delivery is recommended. Compensatory Strategies and Precautions to be Taken for Safe Swallow: Sitting Upright (90 deg) Double Swallow No Straw Small Bites and Sips Alternate Liquids/Solids Rate of Ingestion Change Avoid Specific Foods Supervision While Eating and Drinking for Safe Swallow: Total Supervision (1:1) Foods to Avoid: Mixed textures Swallowing Recommended Treatments: Compens. Strategy Educat. Recommendation for Speech: Outpatient Speech Therapy Inpatient Speech Therapy Modified Barium Swallow Study - Inpatient Modified Barium Swallow Study - Outpatient Comment: Recommend continued speech therapy during this hospitalization and at the next level of care for dysphagia; (?neurogenic) fluency impairment; as well as concern for possible vocal fold dysfunction. Frequency/Duration: M-F PRN Date Range for Service Req: Timeline to reassess: PRN Insurance Counsel Clinican/Clinical Fellow: No Supervisory Statement: I have reviewed and agree with the student/clinical fellow's documentation: N/A Speech Language Pathologist: Iqra Easley M.A., CCC-CELL ATTENDANT HELPER
[2023-09-21] MEDS: Enoxaparin Sodium 40 MG/0.4 ML SYRINGE SUBCUT (21:57)
[2023-09-21] MEDS: Sertraline HCL 50 MG TABLET PO (21:57)
[2023-09-22 02:52] VITALS: BP 113/58; PULSE 65; RESP 18; TEMP 36.7; O2SAT 95
[2023-09-22] MEDS: Lactated Ringers 1,000 ML 100 ML IVCONT (04:58)
[2023-09-22 07:41] VITALS: BP 117/71; PULSE 61; RESP 16; TEMP 36; O2SAT 96
[2023-09-22] MEDS: Butalb/Acetamin/Caff 50/325/40 TABLET 1 TAB PO (08:09)
--- NOTE | 2023-09-22 11:11 | P.F2F_ITS ---
Service Date Service Date: 09/22/23 Encounter Date of encounter: 09/22/23 Reasons for Services Signs and symptoms assessed: Liquid swallowing problem Reason for speech therapy: swallowing impairment and speech impairment Homebound: Leaving the home is medically contraindicated at this time without the asist of a device and/or another person due th the listed conditions above and below. Reason homebound: unable to drive Certification: Based on the above findings, I certify that this patient is confined to the home and needs intermittent care home care, physical therapy and/or speech therapy, or continues to need occupational therapy. The patient is under my care, and I have initiated the establishment of the plan of care. The patient will be followed by a physician who will periodically review the plan of care. Time Spent With Patient Time: Total time managing care of this patient today ____ minutes.
--- NOTE | 2023-09-22 11:14 | P.DS_ITS ---
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 Patient states symptoms began last night at 18:00 when she noticed she had a right-sided facial droop. Patient has a history of Miramontes's palsy in 2022 that lasted for 1 week, and she thought she was having a repeat occurrence. Spoke to her daughter at 22:00 without incident and then patient went to bed. When she awoke the next morning she she noted multiple right-sided deficits: states the right side of her face felt ?weak and tired?, had right-sided gum and jaw pain. Also reports both eyes felt tired and had epiphoria of right eye, as well as experienced pins and needles in her right hand and pain in her right knee. When pt first spoke to her daughter in the morning also reports both difficulty speaking and with word-finding. No headache or acute vision loss. No ataxia or imbalance. Pt also endorses left shoulder pain that has been ongoing for the past two weeks. Has seen her PCP for this and received a cortisone injection, but with little relief. Denies chest p ain/pressure, palpitations. No shortness of breath. Denies fever, chills, nausea, vomiting, abdominal pain. ED clinician contacted Neurology who saw patient ED and who is examination was suggestive of pressured speech that was more commonly noted due to psychological rather than neurological reasons. Patient has been on sertraline since 2018 when her was 1st diagnosed and being treated for cancer. Patient apparently had not been taking her sertraline for the past [address] Quinones felt patient's symptoms were stress related rather than neurological. Pt was set to be discharged with plan to follow up with PCP, however she failed nurse's swallow screen x2. In the ED pt was initially mildly hypertensive up to 152/87, otherwise vitals WNL. Labs were grossly unremarkable. CXR showed no acute cardiopulmonary process. CT?of head negative for acute intracranial pathology. MRI of head/brain found no acute infarction or mass effect, but did show mild chronic microvascular ischemic change. EKG demonstrated normal sinus rhythm without significant ST elevations or depressions. Pt was treated with lorazepam. Pt will be admitted to the hospital under observation for further evaluation of dysphagia. Hospital course # Swallowing and speech problem Question if Psychgenic versus neurologic. Failed swallowing screen in ED. Started on IV fluids. CT of head and MRI of brain negative for acute intracranial pathology. Neurology consulted, examination points more toward stress related etiology rather than neurological cause. Slightly improved during hospital stay. Seen by speech therapy team who recommended outpatient follow up to continue management. 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 Overnight she felt significant improvement and was able to drink regular water with nurse supervision with no reported problems.. to be followed by speech therapist at home. To do Speech therapy as outpatient Follow with dr Quinones from Neurology as outpatient in 2 weeks If you noticed worsening in speech and swallowing please return to tertiary hospital for further work up and possible need of ENT speciality. Time Attestation Discharge coordination time: Less than 30 minutes Quality: Safe Use of Opioids Does Pt have an Active Cancer Diagnosis on the Problem List?: No Quality: Stroke Does the patient have a stroke diagnosis?: No Physical Exam Vital Signs: Vital Signs: Last Vital Signs Temp 96.8 F 09/22/23 07:41 Pulse 61 09/22/23 07:41 Resp 16 09/22/23 07:41 BP 117/71 09/22/23 07:41 Pulse Ox 96 09/22/23 07:41 O2 Del Method Room Air 09/22/23 07:41 BMI result Body Mass Index 28.2 Const: Other: Constitutional : Awake, interactive, not in distress Neck : Normal inspection, Supple Cardiovascular : RRR, no JVP, no lower extremity edema Respiratory : good bilateral air entry, no crackles, wheezes or rhonchi Gastrointestinal: soft, lax, Normal bowel sounds, Non tender Skin : Warm, Dry Neurological : Alert & oriented x3, No focal deficit , mild stuttering, fluent overall, minimal drop in the right side of mouth, CN 2-12 within normal DS: Data Imaging MRI - head: Radiologist's impression: ITS Impressions Head CT 09/20/23 13:11 IMPRESSION: No acute intracranial pathology. This critical result was discussed with DR GONZALEZ by telephone on 09/20/2023 1:23 PM and it was ascertained that the content and urgency of the report was understood at the time of direct communication. Chest X-Ray 09/20/23 13:40 IMPRESSION: No acute cardiopulmonary process. Brain MRI 09/20/23 16:10 IMPRESSION: No acute infarction or mass effect. Mild chronic microvascular ischemic change. Discharge Plan Discharge Anticipated Discharge Date/Time: 09/22/23 11:00 Patient Disposition: Home Health Service Discharge Diagnosis: Stuttering Facial weakness Referrals: Jhony CABEZAS [Outside] Noe Salcedo MD [Primary Care Provider] - Discharge Medications: New iaqixomyjz-pujhnoyyjwymz-rptu 50-325-40 mg Tablet 1 tab PO Q4H PRN (Reason: Migraine Headache) Qty: 30 1RF Continued sertraline 50 mg tablet 50 mg PO BEDTIME Discharge Orders: Discharge Order (Routine); Ordered 09/22/23 Ordered By: Vimal Holt Diet: Advance to usual diet Activity on Discharge: As tolerated Stand Alone Forms: Patient Portal Discharge page, Work/School Release Care Plan Goals: Read below Health Concerns: Read below Plan of Treatment: Read below Assessment: You were admitted to the hospital for evaluation of facial weakness and stuttered speech. You had a CT head and MRI of the brain which did not show any acute abnormalities. you were evaluated by Neurologist who believe these symptoms are likely to improve with supportive measures and Speech therapy as outpatient with no acute stroke. You were also evaluated for swallowing problem To do Speech therapy as outpatient [place] as needed for headache Follow with dr Quinones from Neurology as outpatient in 2 weeks If you noticed worsening in speech and swallowing please return to tertiary hospital for further work up and possible need of ENT speciality. Discharge Date/Time: 09/22/23 12:19
--- NOTE | 2023-09-22 11:45 | MHC.CM.PN ---
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
--- NOTE | 2023-09-22 12:39 | P.F2F_ITS ---
Service Date Service Date: 09/22/23 Encounter Date of encounter: 09/22/23 Reasons for Services Signs and symptoms assessed: Facial weakness Stuttering, swallowing problem Reason for [place] [facility]: neurological assessment and teach disease management Reason for speech therapy: swallowing impairment and speech impairment Homebound: Leaving the home is medically contraindicated at this time without the asist of a device and/or another person due th the listed conditions above and below. Reason homebound: unable to drive Certification: Based on the above findings, I certify that this patient is confined to the home and needs intermittent [facility] [facility] care, physical therapy and/or speech therapy, or continues to need occupational therapy. The patient is under my care, and I have initiated the establishment of the plan of care. The patient will be followed by a physician who will periodically review the plan of care. Time Spent With Patient Time: Total time managing care of this patient today ____ minutes.
[2023-09-26 20:08] LABS: Acetylcholine Receptor Binding <0.30 nmol/L
[2023-09-28 19:03] LABS: Acetylcholine Recept. Blocking <15 (<15)
[2023-10-02 17:49] LABS: Acetylcholine Recep Modulating 13
== END 2023-09-22 12:19 | disposition home health service (06) ==
LOC: HO.ED 18:26 → HO.EDOVER 23:09 → HO.S3 23:46
PROVIDERS: Admitting Provider Student in an Organized Health Care Education/Training Program; Emergency Provider Emergency Medicine; PCP Internal Medicine; Visit Provider Student in an Organized Health Care Education/Training Program
DX: R13.10 Dysphagia, unspecified (principal); G51.0 Bell's palsy; R47.01 Aphasia; F98.5 Adult onset fluency disorder; Q61.5 Medullary cystic kidney; N18.30 Chronic kidney disease, stage 3 unspecified; G43.909 Migraine, unspecified, not intractable, without status migrainosus; F41.8 Other specified anxiety disorders; M25.512 Pain in left shoulder; Z86.718 Personal history of other venous thrombosis and embolism; Z79.899 Other long term (current) drug therapy; Z88.0 Allergy status to penicillin; Z88.8 Allergy status to other drugs, medicaments and biological substances; Z91.030 Bee allergy status; Z91.041 Radiographic dye allergy status; Z23 Encounter for immunization
CPT/HCPCS: 36415; 70450; 70551; 71045; 80048; 82550; 82947; 84484; 85025; 85610; 85730; 86041; 86042; 86043; 90471; 90686; 92610; 93005; 96361; 96374; 96375; 96376; 99221; 99285; J1650; J1885; J2060; J7120

== ENCOUNTER → 2023-09-20 13:07 | Outpatient (BNV) | payer BC, SELFPAY | PROVIDERS: Emergency Provider Emergency Medicine; PCP Internal Medicine; Visit Provider Internal Medicine Cardiovascular Disease | DX: I63.9 Cerebral infarction, unspecified (principal) | CPT/HCPCS: 93010 ==

== ENCOUNTER → 2023-09-20 23:01 | Outpatient (BNV) | payer BC, SELFPAY | PROVIDERS: Admitting Provider Student in an Organized Health Care Education/Training Program; Emergency Provider Emergency Medicine; PCP Internal Medicine; Visit Provider Student in an Organized Health Care Education/Training Program | DX: R13.10 Dysphagia, unspecified (principal); R47.9 Unspecified speech disturbances | CPT/HCPCS: 99222; 99232; 99238; G0180 ==

== ENCOUNTER 2024-05-30 12:22 | Emergency (ER) | payer BC, SELFPAY ==
--- NOTE | ~2024-05-30 | CT_ITS ---
EXAMINATION: CT ABDOMEN AND PELVIS WITHOUT CONTRAST CLINICAL INFORMATION: Pain. COMPARISON: CT scan abdomen pelvis December 27, 2022 TECHNIQUE: Multidetector volumetric imaging was performed from the superior aspect of the liver through the pubic symphysis. Sagittal and coronal reformatted images were obtained on the technologist's workstation. This CT examination was performed using dose optimization techniques as appropriate, variously including the following: *Automated exposure control *Adjustment of mA and/or kV according to patient size (this includes techniques or standardized protocols for targeted exams where dose is matched to indication/reason for exam; i.e. extremities or head) *Use of iterative reconstruction technique DLP: 569 mGy-cm FINDINGS: LUNG BASES: The visualized lung bases are unremarkable. LIVER, GALLBLADDER, AND BILIARY TREE: The liver is normal in size, shape, and attenuation. No focal hepatic lesion or biliary ductal dilatation is present. Status post cholecystectomy. PANCREAS: Unremarkable. SPLEEN: Unremarkable. ADRENAL GLANDS: Unremarkable. KIDNEYS AND URETERS: There is a 2 mm nonobstructive stone lower pole right kidney. There is no stone in the left kidney.. No ureteral calculi. No hydronephrosis. BLADDER: Unremarkable. GASTROINTESTINAL TRACT: There are a few scattered diverticula of the sigmoid colon. There is no diverticulitis. There is no bowel wall thickening /edema. There is no bowel obstruction. There is a moderate volume of stool in the colon. The appendix is normal . The small bowel loops are unremarkable. The stomach is normal. There is no hiatal hernia. ABDOMINAL WALL: No significant hernia is appreciated. LYMPH NODES: Normal. VASCULAR: Vascular calcification of aorta and iliac arteries. There is no aneurysm. PELVIC VISCERA: Unremarkable. OSSEOUS STRUCTURES: Unremarkable. CT/CT abdomen pelvis wo IV con IMPRESSION: 1. No acute abnormality CT scan abdomen pelvis. 2. Status post cholecystectomy. 3. 2 mm nonobstructive stone lower pole right kidney. Fleischner guidelines were followed. Electronically signed by: Volodymyr Grissom MD 05/30/2024 07:31 PM EDT
[2024-05-30 12:45] VITALS: BP 134/69; PULSE 64; RESP 16; TEMP 37; O2SAT 98; BMI 28.9
--- NOTE | 2024-05-30 12:48 | ED.GENADULT ---
[facility] - General Adult General Chief complaint: Abdominal Pain Stated complaint: rectal bleeding Time Seen by Provider: 05/30/24 17:14 Source: patient Mode of arrival: ambulatory Limitations: no limitations History of Present Illness ED Provider: Keren [facility] narrative: Patient is a 58-year-old female with history of appendectomy, cholecystectomy, CKD, DVT, medullary sponge kidney, migraines presenting to the emergency department with complaint of rectal and pelvic pain and pressure which began on Sunday. Reports that yesterday she tried to have a bowel movement and had a large amount of gas expelled and a small amount of bloody mucus. She has picture of this on her phone. Today had a normal bowel movement but did note bright red blood mixed in. Reports history of kidney stones in the past and states pain feels somewhat similar but not exactly the same. Saw PCP for symptoms and had outpatient CT ordered, however, when pain worsened today she was advised to come to the ED for evaluation. Reports difficulty urinating due to the pain and pressure. Denies fevers. Denies nausea or vomiting. MD complaint: rectal and pelvic pain Onset (ago): day(s) Severity: severe Quality: aching Pain Consistency: constant Treatments prior to arrival: none Related Data Home Medications ?Medication ?Instructions ?Recorded ?Confirmed sertraline 50 mg tablet 50 mg PO BEDTIME 09/16/20 09/20/23 Previous Rx's ?Medication ?Instructions ?Recorded zusuzslzwl-tcjhfquphazrm-vjkydqhk 1 tab PO Q4H PRN Migraine Headache 09/22/23 50 mg-325 mg-40 mg tablet #30 tabs Allergies Allergy/AdvReac Type Severity Reaction Status Date / Time metoclopramide [From Reglan] Allergy Severe CONVULSIONS Verified 05/30/24 12:46 amoxicillin Allergy Intermediate Vomiting Verified 05/30/24 12:46 bee pollen [BEE STINGS] Allergy Intermediate SWELLING Verified 05/30/24 12:46 Iodinated Contrast Media Allergy Intermediate HIVES Verified 05/30/24 12:46 [IV Dye, Iodine Containing] Cephalosporins AdvReac Intermediate VOMITING Verified 05/30/24 12:46 erythromycin base AdvReac Intermediate VOMITING Verified 05/30/24 12:46 [Erythromycin Base] Penicillins AdvReac Intermediate VOMITING Verified 05/30/24 12:46 Review of Systems Review of Systems: Yes all other systems are reviewed and are negative Constitutional: Constitutional: Reports as per HPI PMFSH Past Medical History Medical History (Updated 09/30/23 @ 00:01 by Angeles Fields) Migraine headache Post-operative nausea and vomiting COVID-19 vaccine series completed History of COVID-19 Renal calculi Medullary sponge kidney DVT (deep venous thrombosis) Chronic kidney disease Surgical History Hx of lithotripsy Hx of cystoscopy History of ankle surgery Social History Social History Are you a primary ocular care technologist to a significant other at home: No Do you presently have visiting nurse or other home services: No Alcohol intake: never Patient Tobacco Use Status: Never used Tobacco Advance Directives: No Advance Directives Information Provided: No service: No Physical Exam ED Vital Signs: Vital Signs - 24 hr 05/30/24 12:45 05/30/24 17:52 Temperature 98.6 F 98.8 F Pulse Rate 64 66 Respiratory Rate 16 18 Blood Pressure 134/69 132/91 H Pulse Oximetry 98 96 Oxygen Delivery Method Room Air Room Air BMI result Body Mass Index 28.9 Vital signs have been reviewed and appear to be correct. Blood pressure normal. Heart rate normal. Respiratory rate normal. Temperature normal. Oxygen saturation normal. Const General: cooperative, healthy appearing and no acute distress Orientation/consciousness: oriented to person, oriented to place, oriented to time and patient oriented x3 Limitations: no limitations [facility] Head: Yes normocephalic and Yes atraumatic Ears: external ears normal General nose exam: Normal external nose present Face and sinus: Yes face symmetric Mouth: oropharynx normal and moist mucous membranes Throat: Yes uvula midline Eyes Pupils: Equal, round and reactive pupils present Neck Neck: Yes normal visual inspection and Yes supple Resp Effort & Inspection: normal respiratory effort and able to speak in complete sentences Auscultation: clear to auscultation bilaterally Cardio Rate: regular rate Rhythm: regular rhythm Heart sounds: S1 normal heart sound present and S2 normal heart sound present GI Palpation (GI): Soft to palpation and Tenderness to palpation present (GI) in the LLQ and in the RLQ Auscultation: normoactive bowel sounds General: Yes no CVA tenderness Back/Spine/Pelvis Back: no CVA tenderness Skin General skin exam: elasticity normal and turgor normal Neuro General: oriented to person, oriented to place, oriented to time, patient oriented x3, moves all extremities, no focal motor deficits and CN's II-XI intact bilaterally Cranial nerves: Yes Equal, round and reactive pupils present Cognition (Neuro): normal cognition Extrem General: Yes full ROM, Yes no pedal edema and Yes no calf tenderness Psych Mental Status: mental status grossly normal Affect: normal affect Thought process: Normal thought process present Course Course Course Narrative: This is a Rapid Medical Examination (RME) performed by Tomasz Daily PA-C in triage. Full HPI, ROS, assessment and treatment plan per primary provider in the Main ED. 58 yo female here for eval of rectal and pelvic pain/ pressure x3 days. assoc dysuria. admits to attempting to pass BM, noted bright red blood and mucuous around her stool. saw PCP yesterday who noted concern for renal stone vs rectal etiology. did not do physical exam. Outpatient CT scan ordered for today however patient's discomfort has continued to worsen and she was advised to come to the ED for imaging. not on anticoagulation. She states she was unsure if this is actually coming from her rectum or if the blood is in her urine. + well appearing. rectal exam deferred. Plan: labs, UA Medical Decision Making Medical Decision Making [facility] Narrative: Patient is a 58-year-old female with history of appendectomy, cholecystectomy, CKD, DVT, medullary sponge kidney, migraines presenting to the emergency department with complaint of rectal and pelvic pain and pressure which began on Sunday. On exam patient is awake, A+Ox3, VS WNL, afebrile, normal neurological exam without focal deficits, physical exam findings as above. Given reported symptoms and physical exam findings, initial differential includes hemorrhoids, diverticulitis, colitis, IBD. Labs notable for no anemia, no leukocytosis, HCG of 5. CT notable for no acute abdominal abnormality, 2 mm nonobstructive stone lower pole right kidney. My interpretation is in agreement with the radiologist's interpretation. Urinalysis is without evidence of infection. Upon returning to the room to update patient on results of CT scan, patient was noted to have left without completing treatment. Patient would have been discharged home had she remained in the ED. Differential Diagnosis Differential Diagnoses: The differential diagnosis associated with the presentation includes as per [facility] Admission/Observation Consideration of admission/observation: Escalation of care including admission/observation considered Patient would have been admitted to the hospital had their work up had any findings where hospital admission was appropriate and their clinical presentation warranted hospital admission. Lab Data [facility] Lab Attestation statement: I reviewed the patient's lab results. As per [facility] 05/30/24 13:11 05/30/24 13:11 Labs: Lab Results 05/30/24 05/30/24 Range/Units 13:11 15:22 WBC 5.7 (4.8-10.8) X10*3/uL RBC 4.64 (4.20-5.50) X10*6/uL Hgb 14.1 (12.0-16.0) g/dl Hct 42.3 (37.0-47.0) % MCV 91.2 (80.0-98.0) fL MCH 30.4 (27.0-33.0) pg MCHC 33.3 (31.0-35.0) g/dl RDW 12.4 (11.0-16.0) % Plt Count 160 (160-400) X10*3/uL MPV 9.8 (9.4-12.3) fL Immature Gran % (Auto) 0.4 (0.0-0.4) % Neut % (Auto) 68.9 (45-73) % Lymph % (Auto) 18.0 L (20-40) % [place] % (Auto) 10.8 (2-11) % Eos % (Auto) 1.4 (0-4) % Baso % (Auto) 0.5 (0-2) % Lymph # (Auto) 1.0 L (1.2-4.9) X10*3/uL [place] # (Auto) 0.6 (0.1-1.2) X10*3/uL Eos # (Auto) 0.1 (0.0-0.4) X10*3/uL Baso # (Auto) 0.0 (0.0-0.2) X10*3/uL Abs Immat Gran (auto) 0.02 (0.00-0.03) X10*3/uL Absolute Neuts (auto) 3.9 (2.0-8.3) x10*3/uL Absolute Nucleated RBC 0.000 (0.0-0.012) X10*3/uL Nucleated RBC % (auto) 0.0 (0.0-0.2) /100WBC Sodium 143 (135-145) mmol/L Potassium 4.1 (3.3-5.1) mmol/L Chloride 107 (96-108) mmol/L Carbon Dioxide 29 (22-29) mmol/L Anion Gap 11 L (12-20) BUN 15 (9-16) mg/dL Creatinine 1.45 H (0.5-1.4) mg/dL Estim Creat Clear Calc 45.0 Estimated GFR 37 Random Glucose 89 (60-115) mg/dL Calcium 10.2 D (8.4-10.2) mg/dL Magnesium 2.2 (1.6-2.6) mg/dL Total Bilirubin 0.5 (0.0-1.0) mg/dL AST 18 (5-31) U/L ALT 23 (0-31) U/L Alkaline Phosphatase 80 (39-117) U/L Total Protein 6.9 (6.5-8.0) g/dL Albumin 4.3 (3.5-5.0) g/dL Lipase 35 (8-78) U/L Beta HCG, Quant 5 mIU/mL Urine Color Yellow Urine Appearance Clear Urine pH 7.0 (5.0-9.0) Ur Specific [place] 1.010 (1.005-1.025) Urine Protein Negative (Neg-Trace) mg/dL Urine Glucose (UA) Negative (Negative) mg/dL Urine Ketones Negative (Negative) mg/dL Urine Blood Negative (Negative) Urine Nitrite Negative (Negative) Ur Leukocyte Esterase Negative (Negative) Independent Interpretation I performed an independent interpretation of an: CT Scan Interpretation: CT notable for no acute abdominal abnormality, 2 mm nonobstructive stone lower pole right kidney. Radiology Impression Discussion of test interpretation with radiology: I have reviewed the radiologist's reading. Radiologist Impression: CT/CT abdomen pelvis wo IV con IMPRESSION: 1. No acute abnormality CT scan abdomen pelvis. 2. Status post cholecystectomy. 3. 2 mm nonobstructive stone lower pole right kidney. External Record Review External record reviewed: Inpatient record, Office record and Outpatient record Discharge Plan Discharge Patient Disposition: Left W/O Completing Treatment Prescriptions: No Action kmxczjdggp-lrefqlbzxngyw-rgjv 50-325-40 mg Tablet 1 tab PO Q4H PRN (Reason: Migraine Headache) Qty: 30 1RF sertraline 50 mg tablet 50 mg PO BEDTIME Discharge Date/Time: 05/30/24 20:52 Print Language: Romanian
[2024-05-30 13:16] LABS: MANUAL DIFF FLAG NO
[2024-05-30 13:22] LABS: Basophils Percent Auto 0.5 % (0-2); Eosinophils Absolute Auto 0.1 X10*3/uL (0.0-0.4); Eosinophils Percent Auto 1.4 % (0-4); Hematocrit 42.3 % (37.0-47.0); Hemoglobin 14.1 g/dl (12.0-16.0); Imm Gran Abs Auto 0.02 X10*3/uL (0.00-0.03); Imm Gran Pct Auto 0.4 % (0.0-0.4); Mean Corpuscular HGB Conc 33.3 g/dl (31.0-35.0); Mean Corpuscular Hemoglobin 30.4 pg (27.0-33.0); Mean Corpuscular Volume 91.2 fL (80.0-98.0); Mean Platelet Volume 9.8 fL (9.4-12.3); Monocytes Absolute Auto 0.6 X10*3/uL (0.1-1.2); Monocytes Percent Auto 10.8 % (2-11); Neutrophils Absolute Auto 3.9 x10*3/uL (2.0-8.3); Neutrophils Percent Auto 68.9 % (45-73); Platelet Count 160 X10*3/uL (160-400); Red Blood Count 4.64 X10*6/uL (4.20-5.50); Red Cell Distribution Width 12.4 % (11.0-16.0); White Blood Count 5.7 X10*3/uL (4.8-10.8)
[2024-05-30 13:41] LABS: Alanine Aminotransferase 23 U/L (0-31); Albumin Level 4.3 g/dL (3.5-5.0); Alkaline Phosphatase 80 U/L (39-117); Anion Gap 11 (12-20); Aspartate Amino Transferase 18 U/L (5-31); Bilirubin Total 0.5 mg/dL (0.0-1.0); Blood Urea Nitrogen 15 mg/dL (9-16); Calcium 10.2 mg/dL (8.4-10.2); Carbon Dioxide 29 mmol/L (22-29); Chloride 107 mmol/L (96-108); Estimated Glomerular Filt Rate 37; Glucose Random 89 mg/dL (60-115); Lipase 35 U/L (8-78); Magnesium 2.2 mg/dL (1.6-2.6); Potassium 4.1 mmol/L (3.3-5.1); Sodium 143 mmol/L (135-145); Total Protein 6.9 g/dL (6.5-8.0)
[2024-05-30 15:33] LABS: Appearance Urine Clear; Color Urine Yellow; Glucose Urine UA Negative (Negative); Leukocyte Esterase Urine Negative (Negative); Nitrite Urine Negative (Negative); Urine Blood Negative (Negative); Urine Ketones Negative (Negative); Urine Protein Negative (Neg-Trace)
[2024-05-30 17:45] LABS: HCG Quantitative 5 mIU/mL
[2024-05-30 17:52] VITALS: BP 132/91; PULSE 66; RESP 18; TEMP 37.1; O2SAT 96
--- NOTE | 2024-05-30 20:50 | PC.NURSE ---
Provider (LYLA Veliz) entered the patient's room to discuss lab & imaging results with the patient, but both the patient and her visitor were not located. Checked multiple nearby bathrooms without locating the patient. Unknown reason or time of departure. Left without completing treatment.
== END 2024-05-30 20:52 | disposition left against medical advice (07) ==
PROVIDERS: Physician Assistant Medical; Emergency Provider Emergency Medicine; PCP Internal Medicine
DX: K62.5 Hemorrhage of anus and rectum (principal); R10.2 Pelvic and perineal pain; R30.0 Dysuria; K62.89 Other specified diseases of anus and rectum; Z79.899 Other long term (current) drug therapy
CPT/HCPCS: 36415; 74176; 80053; 81003; 83690; 83735; 84702; 85025; 99283; 99284

== ENCOUNTER 2025-07-10 10:53 | Emergency (ER) | payer BC, SELFPAY ==
--- OUTSIDE RECORDS SUMMARY | 2025-04-15 15:16 | XMS_ITS ---
Author Organization [facility] Address [address], [place] [id number] Care Team Providers Care Stock Layer Name Role Phone TAE CIFUENTES Primary Care Provider [phone] REASON FOR VISIT New Referral Request Encounters Encounter Location Date Provider Diagnosis [facility] [address] [place] [address] 04/15/2025 TAE CIFUENTES PLAN OF TREATMENT No Information
--- OUTSIDE RECORDS SUMMARY | 2025-04-16 06:01 | XMS_ITS ---
Author Organization [facility] Address [address], [place] [id number] Care Team Providers Care Residential Support Worker Name Role Phone TAE CIFUENTES Primary Care Provider REASON FOR VISIT RE:New Referral Request Encounters Encounter Location Date Provider Diagnosis [facility] [address] [place] [address] 04/16/2025 TAE CIFUENTES PLAN OF TREATMENT No Information
--- OUTSIDE RECORDS SUMMARY | 2025-04-16 06:01 | XMS_ITS ---
Author Organization [facility] Address [address] [place], [place] [id number] Care Team Providers Care Flying Ii Instructor Name Role Phone TAE CIFUENTES Primary Care Provider REASON FOR VISIT RE:New Referral Request Encounters Encounter Location Date Provider Diagnosis [facility] [address] [place] [address] 04/16/2025 TAE CIFUENTES PLAN OF TREATMENT No Information
--- OUTSIDE RECORDS SUMMARY | 2025-04-16 06:31 | XMS_ITS ---
Author Organization [facility] Address [address] [place], [place] [id number] Care Team Providers Care Ware Tester Name Role Phone TAE CIFUENTES Primary Care Provider [phone] REASON FOR VISIT RE:RE:New Referral Request Encounters Encounter Location Date Provider Diagnosis [facility] [address] [place] [address] 04/16/2025 TAE CIFUENTES PLAN OF TREATMENT No Information
--- OUTSIDE RECORDS SUMMARY | 2025-04-28 05:03 | XMS_ITS ---
Author Organization [facility] Address [address] [place], [place] [id number] Care Team Providers Care Gasket Notcher Name Role Phone TAE CIFUENTES Primary Care Provider [phone] REASON FOR VISIT ortho referral Encounters Encounter Location Date Provider Diagnosis [facility] [address] [place] [address] 04/28/2025 TAE CIFUENTES PLAN OF TREATMENT No Information
--- OUTSIDE RECORDS SUMMARY | 2025-06-29 10:55 | XMS_ITS ---
Author Organization [facility] Address [address] [place], [place] [id number] Care Team Providers Care Surg Tech Name Role Phone TAE CIFUENTES Primary Care Provider [phone] REASON FOR VISIT (2) Re medical foster renewal Encounters Encounter Location Date Provider Diagnosis [facility] [address] [place] [address] 06/29/2025 TAE CIFUENTES PLAN OF TREATMENT No Information
--- OUTSIDE RECORDS SUMMARY | 2025-06-30 08:28 | XMS_ITS ---
Author Organization [facility] Address [address], [place] [id number] Care Team Providers Care Grill Associate Name Role Phone TAE CIFUENTES Primary Care Provider REASON FOR VISIT (AF-06/30/25) RE:(2) Re medical foster renewal Encounters Encounter Location Date Provider Diagnosis [facility] [address] [place] [address] 06/30/2025 TAE CIFUENTES PLAN OF TREATMENT No Information
--- OUTSIDE RECORDS SUMMARY | 2025-07-06 08:46 | XMS_ITS ---
Author Organization [facility] Address [address], [place] [id number] Care Team Providers Care Automotive Finance Manager Name Role Phone TAE CIFUENTES Primary Care Provider REASON FOR VISIT Fax DCF Medical Encounters Encounter Location Date Provider Diagnosis [facility] [address] [place] [address] 07/06/2025 TAE CIFUENTES PLAN OF TREATMENT No Information
--- OUTSIDE RECORDS SUMMARY | 2025-07-06 12:43 | XMS_ITS ---
Author Organization [facility] Address [address], [place] [id number] Care Team Providers Care Icu Staff Nurse Name Role Phone TAE CIFUENTES Primary Care Provider REASON FOR VISIT RE:Fax DCF Medical Encounters Encounter Location Date Provider Diagnosis [facility] [address] [place] [address] 07/06/2025 TAE CIFUENTES PLAN OF TREATMENT No Information
--- OUTSIDE RECORDS SUMMARY | 2025-07-07 09:52 | XMS_ITS ---
Author Organization [facility] Address [address] [place], [place] [id number] Care Team Providers Care Road Consultant Name Role Phone TAE CIFUENTES Primary Care Provider [phone] REASON FOR VISIT back dated [facility] referral Encounters Encounter Location Date Provider Diagnosis [facility] [address] [place] [address] 07/07/2025 TAE CIFUENTES PLAN OF TREATMENT No Information
--- NOTE | ~2025-07-10 | US_ITS ---
EXAMINATION: US TRIPLEX LOWER EXTREMITY, RIGHT CLINICAL INFORMATION: Pain. Postoperative. COMPARISON: None available. TECHNIQUE: Color-flow triplex imaging with spectral analysis and compression Doppler were performed on the right lower extremity. FINDINGS: Respiratory variation, normal compression and augmented flow are noted throughout the right lower extremity. The visualized common femoral vein, superficial femoral vein, profunda femoral vein, popliteal vein and midcalf peroneal and posterior tibial venous segments show no evidence of deep venous thrombosis. There is no Owusu's cyst. US/US venous duplex LE RT IMPRESSION: No evidence of deep venous thrombosis involving the right lower extremity. Electronically signed by: Dulce Barrera MD 07/10/2025 11:59 AM EDT
[2025-07-10 11:08] VITALS: BP 144/73; PULSE 79; RESP 18; TEMP 36.8; O2SAT 98; BMI 26.6
--- NOTE | 2025-07-10 11:08 | ED_ITS ---
HPI - General Adult General Chief complaint: Extremity Problem Stated complaint: ? Blood Clot R Leg Time Seen by Provider: 07/10/25 11:18 Source: patient Mode of arrival: ambulatory Limitations: no limitations History of Present Illness ED Provider: Nakita Engle PA-C HPI narrative: Patient is a 59 year old assigned female at with a history of DVT on eliquis, CKD, and s/p total right knee replacement x5 weeks ago by [facility] presenting to the emergency department today with right lower leg swelling / pain and concern for DVT. Patient states that she has been having right lower leg pain / swelling and is concerned she has developed a DVT. Patient denies any other complaints at this time. Related Data Home Medications ?Medication ?Instructions ?Recorded ?Confirmed sertraline 50 mg tablet 50 mg PO BEDTIME 09/16/20 Previous Rx's ?Medication ?Instructions ?Recorded vbirycxmkh-evagolrfzajah-iixdjyua 1 tab PO Q4H PRN [place] Headache 09/22/23 50 mg-325 mg-40 mg tablet #30 tabs Allergies Allergy/AdvReac Type Severity Reaction Status Date / Time metoclopramide (From Reglan) Allergy Severe CONVULSIONS Verified 07/10/25 11:10 amoxicillin Allergy Intermediate Vomiting Verified 07/10/25 11:10 bee pollen (BEE STINGS) Allergy Intermediate SWELLING Verified 07/10/25 11:10 Iodinated Contrast Media (IV Allergy Intermediate HIVES Verified 07/10/25 11:10 Dye, Iodine Containing) Cephalosporins AdvReac Intermediate VOMITING Verified 07/10/25 11:10 erythromycin base AdvReac Intermediate VOMITING Verified 07/10/25 11:10 (Erythromycin Base) Penicillins AdvReac Intermediate VOMITING Verified 07/10/25 11:10 Review of Systems 2 Constitutional: Constitutional: Reports as per HPI Eyes: Eyes: Reports as per HPI ENT: Reports as per HPI Cardiovascular: Cardiovascular: Reports as per HPI Respiratory: Respiratory: Reports as per HPI Gastrointestinal: Gastrointestinal: Reports as per HPI Genitourinary: Genitourinary: Reports as per HPI Musculoskeletal: Musculoskeletal: Reports as per HPI Integumentary/Breasts: Skin/Breast: Reports as per HPI Neurologic: Reports as per HPI Psychiatric: Psychiatric: Reports as per HPI Endocrine: Endocrine: Reports as per HPI Hematologic/Lymphatic: Hematologic/Lymphatic: Reports as per HPI Allergic/Immunologic: Allergic/Immunologic: Reports as per HPI PMFSH Past Medical History Attestation statement: The following information was validated with the patient. Source: old records reviewed and nursing notes reviewed Medical History Migraine headache Post-operative nausea and vomiting COVID-19 vaccine series completed History of COVID-19 Renal calculi Medullary sponge kidney DVT (deep venous thrombosis) Chronic kidney disease Surgical History Hx of lithotripsy Hx of cystoscopy History of ankle surgery Social History Social History Are you a primary critical care unit nurse to a significant other at home: No Do you presently have visiting nurse or other home services: No Alcohol intake: never Patient Tobacco Use Status: Never used Tobacco Advance Directives: Yes Advance Directives Information Provided: Yes Advance Directives on File: No Do you have a plan to hurt others: No Plan service: No Physical Exam ED Vital Signs: Vital Signs - 24 hr 07/10/25 11:08 07/10/25 12:24 Temperature 98.3 F 98.3 F Pulse Rate 79 79 Respiratory Rate 18 18 Blood Pressure 144/73 H 144/73 H Pulse Oximetry 98 98 Oxygen Delivery Method Room Air Room Air BMI result Body Mass Index 26.6 Const General: cooperative, no acute distress, alert and awake Nutritional Appearance: well nourished Orientation/consciousness: patient oriented x3 HENMT Head: Yes normal to inspection and Yes atraumatic Ears: hearing grossly normal bilaterally and external ears normal General nose exam: Normal external nose present, no nasal discharge noted and no epistaxis Face and sinus: Yes normal facial exam, No abrasion and No laceration Mouth: Normal oral and palatal mucosa present, no drooling and no muffled voice Eyes General: appearance normal, both eyes and all related structures Periorbital: periorbital findings normal Eyelids: Yes eyelids normal Conjunctivae: conjunctivae normal Pupils: Equal, round and reactive pupils present EOM: EOMs intact bilaterally Neck Neck: Yes normal visual inspection and Yes full ROM Resp Effort & Inspection: normal respiratory effort and able to speak in complete sentences Neuro General: patient oriented x3, moves all extremities and CN's II-XI intact bilaterally Cranial nerves: Yes Equal, round and reactive pupils present Cognition (Neuro): normal cognition Extrem Other: General: Yes full ROM and Yes capillary refill normal Psych Appearance: grossly normal Mental Status: mental status grossly normal Affect: normal affect Attitude: cooperative Thought process: Normal thought process present Thought content: Normal thought content present Insight: Good insight present (Psych) Course Course Course Narrative: This is a Rapid Medical Examination (RME) performed by Tomasz Daily PA-C in triage. Full HPI, ROS, assessment and treatment plan per primary provider in the Main ED. Hx: 59 yo hx of provoked DVTs (surgery and ), currently 5 weeks s/p right knee replacement at [facility], presents from physical therapy with right calf pain. advised to come in for US. she is on eliquis - no missed doses. Plan: labs, duplex Medical Decision Making Medical Decision Making [facility] Narrative: Patient is a 59 year old assigned female at with a history of DVT on eliquis, CKD, and s/p total right knee replacement x5 weeks ago by [facility] presenting to the emergency department today with right lower leg swelling / pain and concern for DVT. Patient's physical exam was as noted in the physical exam portion of this note. Patient's right total knee replacement surgical wound is well healing - well approximated. Patient has minimal swelling present to the right lower extremity. Patient's blood work was unremarkable. Patient's RLE US showed no acute process. I explained my physical exam findings as well as all test results to the patient. I answered all questions asked by the patient. Patient likely has normal post-op pain + swelling. There is no evidence of infection. No erythema or warmth. I stressed the importance of the patient taking her medication as directed (either prescribed or as the over the counter packaging recommends). I stressed the importance of the patient following up with her primary care provider and her [facility] surgeon. I stressed the importance of the patient returning to the emergency department immediately if her symptoms were to worsen or if she were to develop any dizziness, shortness of breath, difficulty breathing, chest pain, blurry vision, loss of vision, nausea, vomiting, abdominal pain, fever, chills, back pain, or any other complaints. Patient verbalized agreement and understanding with this treatment plan and discharge. Differential Diagnosis Differential Diagnoses: The differential diagnosis associated with the presentation includes Right lower extremity swelling / pain RLE DVT Post-op pain / swelling Admission/Observation Consideration of admission/observation: Escalation of care including admission/observation considered Patient would have been admitted to the hospital had her work up had any findings where hospital admission was appropriate and her clinical presentation warranted hospital admission. Lab Data [facility] Lab Attestation statement: I reviewed the patient's lab results. My interpretation of these results are in the [facility] Rationale portion of this note. 07/10/25 11:32 07/10/25 11:32 Labs: Lab Results 07/10/25 Range/Units 11:32 WBC 5.8 (4.8-10.8) X10*3/uL RBC 4.27 (4.20-5.50) X10*6/uL Hgb 12.5 (12.0-16.0) g/dl Hct 38.7 (37.0-47.0) % MCV 90.6 (80.0-98.0) fL MCH 29.3 (27.0-33.0) pg MCHC 32.3 (31.0-35.0) g/dl RDW 13.6 (11.0-16.0) % Plt Count 211 D (160-400) X10*3/uL MPV 10.0 (9.4-12.3) fL Immature Gran % (Auto) 0.3 (0.0-0.4) % Neut % (Auto) 67.5 (45-73) % Lymph % (Auto) 24.1 (20-40) % [place] % (Auto) 6.0 (2-11) % Eos % (Auto) 1.6 (0-4) % Baso % (Auto) 0.5 (0-2) % Lymph # (Auto) 1.4 (1.2-4.9) X10*3/uL [place] # (Auto) 0.4 (0.1-1.2) X10*3/uL Eos # (Auto) 0.1 (0.0-0.4) X10*3/uL Baso # (Auto) 0.0 (0.0-0.2) X10*3/uL Abs Immat Gran (auto) 0.02 (0.00-0.03) X10*3/uL Absolute Neuts (auto) 3.9 (2.0-8.3) x10*3/uL Absolute Nucleated RBC 0.000 (0.0-0.012) X10*3/uL Nucleated RBC % (auto) 0.0 (0.0-0.2) /100WBC Sodium 143 (135-145) mmol/L Potassium 3.8 (3.3-5.1) mmol/L Chloride 108 (96-108) mmol/L Carbon Dioxide 26 (22-29) mmol/L Anion Gap 13 (12-20) BUN 16 (9-16) mg/dL Creatinine 1.42 H (0.5-1.4) mg/dL Estim Creat Clear Calc 43.6 Estimated GFR 38 Random Glucose 128 H (60-115) mg/dL Calcium 9.8 (8.4-10.2) mg/dL Magnesium 2.2 (1.6-2.6) mg/dL Total Bilirubin 0.4 (0.0-1.0) mg/dL AST 19 (5-31) U/L ALT 12 (0-31) U/L Alkaline Phosphatase 103 (39-117) U/L Total Protein 6.9 (6.5-8.0) g/dL Albumin 4.4 (3.5-5.0) g/dL Independent Interpretation I performed an independent interpretation of an: Ultrasound Interpretation: My interpretation is in agreement with the radiologist's impression of this imaging study. L Reason for Exam: calf pain, 5 wks post op EXAMINATION: US TRIPLEX LOWER EXTREMITY, RIGHT CLINICAL INFORMATION: Pain. Postoperative. COMPARISON: None available. TECHNIQUE: Color-flow triplex imaging with spectral analysis and compression Doppler were performed on the right lower extremity. FINDINGS: Respiratory variation, normal compression and augmented flow are noted throughout the right lower extremity. The visualized common femoral vein, superficial femoral vein, profunda femoral vein, popliteal vein and midcalf peroneal and posterior tibial venous segments show no evidence of deep venous thrombosis. There is no Owusu's cyst. US/US venous duplex LE RT IMPRESSION: No evidence of deep venous thrombosis involving the right lower extremity. Electronically signed by: Dulce Barrera MD 07/10/2025 11:59 AM EDT Dictated By: Dulce Barrera MD Signed By: Electronically signed by Dulce Barrera MD 07/10/25 0837 Radiology Impression Discussion of test interpretation with radiology: I have reviewed the radiologist's reading. Discharge Plan Discharge Clinical Impression: Right leg swelling Patient Disposition: Home, Self-Care Additional Instructions: Your blood work and ultrasound were reassuring that there is no blood clot. IF you are prescribed home medications and/or you are taking over the counter medications at home - it is very important you continue to do so as prescribed / directed unless told otherwise. Follow up with your primary care provider. Return to the emergency department immediately if your symptoms worsen or if you develop any numbness, tingling, dizziness, shortness of breath, difficulty breathing, chest pain, blurry vision, loss of vision, nausea, vomiting, abdominal pain, fever, chills, back pain, or any other complaints. Please see the information below about our Patient Portal. If you are not yet enrolled in the [facility] Patient Portal, you will receive an enrollment email invitation following your visit to any [facility] setting. You may also self-enroll in the Patient Portal by visiting our website: [email or web address] The following information is required to access the Patient Portal: - Your [facility] Medical Record Number - Your personal home email address (must match what is in your electronic medical record, Registration staff can assist with this) - Name - Date of Capabilities of the Patient Portal: - Message some providers - View upcoming appointments - Access your health summary, medical history, and visit history - View current conditions and allergies - View procedure and lab results - View your medications, including guidelines, side effects, and precautions - Complete pre-appointment questionnaires requested by your provider - Ready summary reports of your office visits and procedures To access the Patient Portal Mobile [employer], follow these directions: - Search [employer] in the [employer] Store or [employer] Store - Download the [employer]anda - Search for [facility] - Enter your login/password Prescriptions: No Action kacaavupdw-aacmqnhxaygaa-egkx 50-325-40 mg Tablet 1 tab PO Q4H PRN (Reason: Migraine Headache) Qty: 30 1RF sertraline 50 mg tablet 50 mg PO BEDTIME Referrals: Noe Salcedo MD [Primary Care Provider, Internal Medicine] Interventions: ED Discharge Assessment Last Done: 07/10/25 12:24 Discharge Date/Time: 07/10/25 12:25 Print Language: Sammarinese
[2025-07-10 11:44] LABS: MANUAL DIFF FLAG NO
[2025-07-10 11:50] LABS: Hematocrit 38.7 % (37.0-47.0); Hemoglobin 12.5 g/dl (12.0-16.0); Imm Gran Abs Auto 0.02 X10*3/uL (0.00-0.03); Imm Gran Pct Auto 0.3 % (0.0-0.4); Lymphocytes Absolute Auto 1.4 X10*3/uL (1.2-4.9); Mean Corpuscular HGB Conc 32.3 g/dl (31.0-35.0); Mean Corpuscular Hemoglobin 29.3 pg (27.0-33.0); Mean Corpuscular Volume 90.6 fL (80.0-98.0); NRBC Abs Auto 0.000 X10*3/uL (0.0-0.012); NRBC Pct Auto 0.0 /100WBC (0.0-0.2); Platelet Count 211 X10*3/uL (160-400); Red Blood Count 4.27 X10*6/uL (4.20-5.50); White Blood Count 5.8 X10*3/uL (4.8-10.8)
[2025-07-10 12:04] LABS: Alanine Aminotransferase 12 U/L (0-31); Albumin Level 4.4 g/dL (3.5-5.0); Alkaline Phosphatase 103 U/L (39-117); Anion Gap 13 (12-20); Aspartate Amino Transferase 19 U/L (5-31); Blood Urea Nitrogen 16 mg/dL (9-16); Calcium 9.8 mg/dL (8.4-10.2); Carbon Dioxide 26 mmol/L (22-29); Chloride 108 mmol/L (96-108); Creatinine Clr Calc Pharmacy 43.6; Estimated Glomerular Filt Rate 38; Magnesium 2.2 mg/dL (1.6-2.6); Potassium 3.8 mmol/L (3.3-5.1); Sodium 143 mmol/L (135-145); Total Protein 6.9 g/dL (6.5-8.0)
[2025-07-10 12:24] VITALS: BP 144/73; PULSE 79; RESP 18; TEMP 36.8; O2SAT 98
--- OUTSIDE RECORDS SUMMARY | 2025-07-10 13:12 | XMS_ITS | Encounter Summary ---
Author Organization [facility] Address [address] [place] [address] Phone Care Team Providers Care Hospitality Housekeeper Name Role Phone Noe Salcedo MD Primary Care Provider [phone] Encounter Details Date Type Department Care Team (Late st Contact Info) Description 09/25/2023 Procedure Pass [facility], [address] [place] [address] Social History Tobacco Use Types Packs/Day Years Used Date Smoking Tobacco: Never Smokeless Tobacco: Never Alcohol Use Standard Drinks/Week Comments Not Currently 0 (1 standard drink = 0.6 oz pur e alcohol) Education Answer Date Recorded Are you interested in more education? Not on jah e 01/06/2023 Are you concerned about learning? Not on file 01/06/2023 No 01/06/2023 No 01/06/2023 Digital Access Answer Date Recorded No 02/04/2023 No 02/04/2023 Reliable internet access at home? Not on file 02/04/2023 Device with a working camera? Not on file Intimate Partner Violence Answer Date R ecorded Are you denied basic needs s uch as food, clothing, or medical care? No 09/25/2023 In the past 12 months have y ou been in a relationship with a person who hurts, threatens, or tries to control you? No 09/25/2023 Are you denied basic needs s uch as food, clothing, or medical care? No 09/25/2023 In the past 12 months have y ou been in a relationship with a person who hurts, threatens, or tries to control you? No 09/25/2023 Comments Unknown Sex and Gender Information Value Date Recorded Sex Assigned at Not on file Legal Sex Female 2:33 PM EST Gender Identity Not on file Sexual Orientation Not on file documented as of this encounter Functional Status * Calculated C-SSRS Risk Score (Lifetime/Recent) Answer Date of Assessment Author No Risk Indicated 09/25/2023 2:29 PM EST Yazmin Pelletier RN * [place] Suicide Severity Rating Scale (Screener/Recent Self-Report) Question Answer Date of Assessment Author 1. Wish to be (Past 1 Month) No 09/25/2023 2:29 PM Yazmin Bynum RN 2. Non-Specific Active Suicidal Thoughts (Past 1 Month) No 09/25/2023 2:29 PM Yazmin Bynum RN 6. Suicidal Behavior (Lifetime) No 09/25/2023 2:29 PM Yazmin Bynum RN documented as of this encounter Plan of Treatment Not on file documented as of this encounter Visit Diagnoses Not on filedocumented in this encounter Additional Health Concerns Infection Onset Date Last Indicated Resolved Time CoV-Risk Comment:Per note documentation 09/24/2023 09/24/2023 7:44 AM EST documented as of this encounter Care Teams Hospitality Housekeeper Relationship Specialty Start Date End Date Noe Salcedo MD [address] [place] [address] PCP - General Internal Medicine 08/29/21 documented as of this encounter Additional Source Comments The information contained in this document represents components of the legal health record. It is not the complete legal health record.[facility]
--- OUTSIDE RECORDS SUMMARY | 2025-07-10 13:12 | XMS_ITS | Encounter Summary ---
Author Organization [facility] Address [address] [place] [address] Phone Care Team Providers Care Radiology Scheduler Name Role Phone Noe Salcedo MD Primary Care Provider [phone] Encounter Details Date Type Department Care Team (Late st Contact Info) Description 09/25/2023 Procedure Pass [facility] [place], Main [address] [place] [address] Social History Tobacco Use Types Packs/Day Years [...] 2:29 PM EST Yazmin Pelletier RN * [place] Suicide Severity Rating Scale (Screener/Recent Self-Report) Question Answer Date of Assessment Author 1. Wish to be (Past 1 Month) No 09/25/2023 2:29 PM Yazmin Bynum RN 2. Non-Specific Active Suicidal Thoughts (Past 1 Month) No 09/25/2023 2:29 PM Yazmin Bynum RN 6. Suicidal Behavior (Lifetime) No 09/25/2023 2:29 PM Richard Bynum RN documented as of this encounter Plan of Treatment Not on file documented as of this encounter Visit Diagnoses Not on filedocumented in this encounter Additional Health Concerns Infection Onset Date Last Indicated Resolved Time CoV-Risk Comment:Per note documentation 09/24/2023 09/24/2023 7:44 AM EST documented as of this encounter Care Teams Radiology Scheduler Relationship Specialty Start Date End Date Noe Salcedo MD [address] [place] [address] PCP - General Internal Medicine 08/29/21 documented as of this encounter Additional Source Comments The information contained in this document represents components of the legal health record. It is not the complete legal health record.[facility]
--- OUTSIDE RECORDS SUMMARY | 2025-07-10 13:12 | XMS_ITS | Data Portability ---
Author Organization [facility] Address [address] [facility] [address] [place] [address] Care Team Providers Care Varnisher Name Role Phone TAE CIFUENTES Primary Care Provider Assessment Encounter Date Assessment Date Assessment LastModified by Organization Details LastModified Time 12/23/2015 12/23/2015 Jess Quach is a 50 year old woman with complaints of right shoulder pain, neck pain radiating into both upper extremities with numbness and tingling in left upper extremity. The pain started after a fall at home. Her worse pain is in her right shoulder. She is doing a home exercise program. On exam, she has pain on palpation of the shoulder joint line with limited range of motion of the right shoulder. I recommend a MRIright shoulderto elucidate the cause of her pain. She will follow up to review the same and for further treatment plans. I have encouraged tostart physical therapy and discussed the importance of core strengthening. She has complaints of neck pain radiating into both upper extremities with numbness and tingling in left upper extremity. She might benefit from a cervical epidural steroid injection under fluoroscopic guidance. [email or web address] Not available 12/23/2015 16:05:47 01/06/2016 01/06/2016 Jess Quach is a 50 year old woman with complaints of right shoulder pain, neck pain radiating into both upper extremities with numbness and tingling in left upper extremity. The pain started after a fall at home. Her worse pain is in her right shoulder. She is doing a home exercise program. On exam, she has pain on palpation of the shoulder joint line with limited range of motion of the right shoulder. 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 Acromioclavicular joint hypertrophy with signs of subacromial-subdelt oid bursitis. I recommend a trial of right shoulder steroid injection under ultrasound guidance. The risks and benefits of the procedure were discussed in detail. She wishes to proceed. An appointment has been booked for the same. She needs a yard truck driver on the day of the procedure. I will also refer her to Dr. Bridges for a surgical evaluation. Her creatinine level is 1.24. I have advised her not to take Ibuprofen/Celebrex. She can take tylenol 500mg upto 4 tablets a day. [email or web address] Not available 01/06/2016 15:19:02 01/11/2016 01/11/2016 Jess Quach is a 50 year old woman with complaints of right shoulder pain, neck pain radiating into both upper extremities with numbness and tingling in left upper extremity. The pain started after a fall at home. Her worse pain is in her right shoulder. She is doing a home exercise program. On exam, she has pain on palpation of the shoulder joint line with limited range of motion of the right shoulder. 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 Acromioclavicular joint hypertrophy with signs of subacromial-subdelt oid bursitis.She is here fora trial of right shoulder steroid injection under ultrasound guidance. The risks and benefits of the procedure were discussed in detail. She wishes to proceed. She will follow up in three to four weeks . [email or web address] Not available 01/12/2016 13:19:59 02/15/2016 02/15/2016 Jess Quach is a 50 year old woman with complaints of neck pain radiating into left upper back. She feels physical therapy has aggravated her symptoms. She is doing a home exercise program.She has improved range of motion of herright shoulder after her injection. On exam, she has trigger points in her left trapezius muscle.She is here fora trial ofleft trapezius muscle trigger pointsteroid injection under ultrasound guidance. The risks and benefits of the procedure were discussed in detail. She wishes to proceed. She will follow up in three to four weeks . [email or web address] Not available 02/22/2016 14:39:13 Plan of Treatment Reminders Order Date Submit Date Provider Last Modified By Organization Details Last Modified Time Details Appointments None recorded . Lab None recorded . Referral orthoped ic referral - Please evaluate patient with right shoulder pain S/P Fall. I have attached MRI results for your perusal. Thanks. 2015 016 smith Bridges MD, [address] [place], [address], 14:35:54 orthoped ic referral - Please evaluate patient with right shoulder pain S/P Fall. I have attached MRI results for your perusal. Thanks. 2015 016 arline Bridges MD, [address] [place], [address], 11:07:37 physical therapis t referral - Patient with right shoulder pain and neck pain . Thanks 2015 016 [facility] Physical Therapy - [address], [address], 6 12:51:40 Procedures None recorded . Surgeries None recorded . Imaging MRI, shoulder - Patient with right shoulder pain for a right shoulder MRI . [place] is [id number] . 2015 016 [facility], [address] [place] [address], [address], 6 10:09:10 Medication Orders None recorded . Patient TargetsNo targets recorded. Patient Instructions Encounter Date Encounter Id Patient Instructions Last Modified By Organization Details Last Modified Time 12/23/2015 [id number] She was advised against bed rest lasting longer than four days and to continue activities as tolerated. [email or web address] Not available 12/23/2015 16:05:47 01/06/2016 [id number] She was advised against bed rest lasting longer than four days and to continue activities as tolerated. [email or web address] Not available 01/06/2016 15:19:29 01/11/2016 [id number] She was advised against bed rest lasting longer than four days and to continue activities as tolerated. [email or web address] Not available 01/12/2016 13:17:53 02/15/2016 [id number] She was advised against bed rest lasting longer than four days and to continue activities as tolerated. smith Not available 02/22/2016 14:35:55 Reason for Referral Patient with right shoulder pain and neck pain . Thanks Referring Physician: [facility], Encounter Date: 12/23/2015 Orthopedic Referral for Pain of shoulder region Please evaluate patient with right shoulder pain S/P Fall. I have attached MRI results for your perusal. Thanks. Referring Physician: Ansley [facility], Encounter Date: 01/06/2016 Orthopedic Referral for Pain of shoulder region Please evaluate patient with right shoulder pain S/P Fall. I have attached MRI results for your perusal. Thanks. Referring Physician: Ansley Olivier, Encounter Date: 01/11/2016 Results Created Date Observation Date Name Description Value Unit Range Abnormal Flag Note LastModifiedBy Organization Detail LastModifiedTime 12/30/19 16 12/29/2015 MRI, shoul jacinda No observ ation record ed. [email or web address] [facility] Dept [address] [place] [address], [address], 01/06/2016 14:02:53 Result Notes None recorded. Problems Name Problem SNOMED Code Status Onset Date Resolution Date Notes Provider Name and Address Organization Details Recorded Time Traumatic rupture of rotator cuff 028004270 Active Gretel ortiz MD [address] , [address], [place], [address], [place] [facility] 6 14:39:12 Pain of shoulder region 39039291 Active Gretel ortiz MD [address] , [address], [place], [address], [place] [facility] 6 14:39:12 Degeneration of cervical intervertebral disc 27192881 Shasta ortiz MD [address] , [address], [place], [address], [place] [facility] 6 14:39:12 Cervical radiculopathy 80592357 Active Gretel ortiz MD [address] , [address], [place], [address], [place] [facility] 6 14:39:12 Problem Notes None recorded. Procedures Surgical History Date Name Laterality Status Provider Name and Address Organization Details Recorded Time 02/15/20 16 Trigger Point Injections under ultrasound guidance completed Gretel Reyes MD [address] , [address], [place], [address], [place] [facility] 02/22/2016 14:39:13 01/11/20 16 Intra-articular shoulder steroid injection under ultrasound guidance completed Gretel Reyes MD [address] , [address], [place], [address], [place] [facility] 01/12/2016 13:19:59 Arthroscopic Surgery completed Roxienorma Pope [place] - [facility] 12/23/2015 10:20:39 Other completed Roxie Pope [place] [facility] 12/23/2015 10:20:39 Lumpectomy completed Roxienorma Pope [place] - [facility] 12/23/2015 10:20:39 Appendectomy completed Roxienorma Pope [place] [facility] 12/23/2015 10:20:39 Cholecystectomy completed Roxienorma Pope [place] [facility] 12/23/2015 10:20:39 Imaging Results None recorded. Procedure Notes None recorded. Medical Equipment None Reported. Allergies Allergen ID Allergen Name Allergen Category Reaction Reaction Severity Criticality Documentation Date Start Date Code Code System Note Provider Name and Address Organization Details Recorded Time 69365 amoxicill in medicatio n other Not available Not available 12/23/2015 723 RxNorm GI upset Roxie lane, [place] [facility] 6 10:20:40 88867 Cephalosp siena (substanc e) medicatio n other Not available Not available 12/23/2015 72672 7003 SNOMED GI Upset Roxie lane, [place] [facility] 6 10:20:40 15473 Iodinated contrast media (substanc e) medicatio n anaphylax is Not available Not available 12/27/2015 26687 2004 SNOMED Roxie lane, [place] [facility] 6 09:12:34 07050 Reglan medicatio n anaphylax is Not available Not available 12/27/2015 9230 RxNorm Roxie Pope ariana [facility] 6 09:12:34 17315 honey bee venom environme nt anaphylax is Not available Not available 12/27/2015 54884 7 RxNorm Roxie lane [facility] 6 09:12:34 Medications Name Sig Start Date Stop Date Status Note LastModified by Organization Details LastModified Time cyclobenzaprine 10 mg tablet active Not Available Not Available Not Available Tylenol 500 mg capsule Take 2 tablets every 4 hours by oral route. active Not Available Not Available No t Available ibuprofen 800 mg tablet active Not Available Not Available No t Available ciprofloxacin 500 mg tablet active Not Available Not Availabl e Not Available oxycodone-aceta minophen 5 mg-325 mg tablet active Not Available Not Available Not Available lorazepam 2 mg tablet active Not Available Not Available Not Available dexamethasone sodium phosphate 4 mg/mL injection solution active Not Available Not Available Not Available methylprednisol one 4 mg tablets in a dose pack active Not Available Not Available No t Available oxycodone 5 mg tablet active Not Available Not Available Not Available Vitals Date Recorded Body mass index (BMI) Oxygen saturation Oxygen saturation in Arterial blood by Pulse oximetry Heart rate Body height Body weight Systolic And Diastolic Provider Name and Address Organization Details Last Updated DateTime 6 27.3 kg/m2 99 % 99 % 71 /min 165.1 cm 15876.1 4868 g 137/83 mm[Hg] Roxie Pope [facility] 6 10:13:49 Date Recorded Oxygen saturation Oxygen saturation in Arterial blood by Pulse oximetry Heart rate Systolic And Diastolic Provider Name and Address Organization Details Last Updated DateTime 01/06/2016 99 % 99 % 78 /min 132/66 mm[Hg] Roxie Pope [facility] 6 10:49:02 Date Recorded Oxygen saturation Oxygen saturation in Arterial blood by Pulse oximetry Heart rate Systolic And Diastolic Provider Name and Address Organization Details Last Updated DateTime 01/11/2016 98 % 98 % 70 /min 143/94 mm[Hg] Roxie Pope [facility] 6 11:50:42 Date Recorded Oxygen saturation Oxygen saturation in Arterial blood by Pulse oximetry Heart rate Systolic And Diastolic Provider Name and Address Organization Details Last Updated DateTime 02/15/2016 98 % 98 % 64 /min 120/81 mm[Hg] Roxie Pope [place] [facility] 6 09:40:18 Social History Question Answer Notes LastModified by [employer] Details LastModified Time Tobacco Smoking Status Never Smoker Not Available [employer] 06/25/2020 03:16:11 Which Illicit Or Recreational Drugs Have You Used? No [id number] Information not available 06/25/2020 Education 12 Information no t available 12/23/2015 Live Alone Or With Others? With Others And Children Information not available 12/23/2015 Marital Status Informatio n not available 12/23/2015 Sex: Unknown Functional Status Question Answer Note LastModified by [employer] Details LastModified Time What is your level of alcohol consumption? None [id number] Information not available 06/25/2020 Are you currently employed? 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 Family History Relationship Description Onset Age of this Age Resolved Age Notes LastModified by Organization Details LastModified Time Mother Problem Cirrho sis of the liver [email or web address] Not available 02/22/2016 14:33:41 Brother Malignant neoplastic disease tmanikantan Not available 02/08 14:33:41 Brother Malignant neoplastic disease tmanikantan Not available 02/08 14:33:42 Sister Malignant neoplastic disease tmanikantan Not available 02/08 14:33:42 Medical History Condition Response Arthritis Y Migrane Y Kidney Stones Y Gynecological HistoryNo gynecological history recorded. Obstetrics History GPAL:G 0 P 0 0 0 0 Past Encounters Encounter ID Performer Location Encounter Start Date Encounter Closed Date Diagnosis/Indication Diagnosis SNOMED-CT Code Diagnosis ICD10 Code Diagnosis IMO Codes Diagnosis Note [id number] Gretel Reyes MD PAIN OFFICE [address],[facility] [address] [facility] [place] [address] 12/23/2015 09:45:34 12/23/2015 16:09:55 Traumatic rupture of rotator cuff 622524137 S46.021A Pain of sh oulder region 67640907 M25.511 Cervical radiculopathy 53914664 M54.12 Degenerati on of cervical intervertebral disc 28837068 M50.30 [id number] Gretel Reyes MD PAIN OFFICE [address] [place] [address] 01/06/2016 10:14:48 01/06/2016 15:20:07 Pain of shoulder region 57065199 M25.511 Cervical radiculopathy 36064267 M54.12 Traumatic rupture of rotator cuff 351009453 S46.021A Degenerati on of cervical intervertebral disc 16921629 M50.30 [id number] Gretel Reyes MD PAIN OFFICE [address] [place] [address] 01/11/2016 11:17:26 01/12/2016 13:20:35 Pain of shoulder region 91821685 M25.511 Traumatic rupture of rotator cuff 126689616 S46.021A Cervical radiculopathy 46383802 M54.12 Degenerati on of cervical intervertebral disc 25375441 M50.30 [id number] Gretel Reyes MD PAIN OFFICE [address] [place] [address] 02/15/2016 09:26:55 02/22/2016 14:39:58 Pain of shoulder region 58225261 M25.511 Cervical radiculopathy 61944993 M54.12 Traumatic rupture of rotator cuff 476623282 S46.021A Degenerati on of cervical intervertebral disc 44759561 M50.30 Health Concerns Section Related Observation LastModified by Organization Detai ls LastModified Time None Recorded Concern Status LastModified by Organization Details LastModified Time None Recorded Advance Directives Directive None Recorded Payers Insurance Date Sequence Insurance Name Policy Number Policy Veliz Covered Member ID Veliz Member ID Guarantor Name 02/12/2016 1 [place] [facility] [place] [id number] Jess Quach [id number] Jess Quach Notes Date Note Type Note Provider Name and Address Organization Details Recorded Time 12/23/2015 text/html Jess Quach is a 50 year old woman with complaints of right shoulder pain. She has neck pain radiating into both upper extremities with numbness and tingling in her left upper extremity. The pain started in September 2015 after a fall down the staircase to the basement while carrying [employer]roy decorations. Initially she had neck pain radiating into left upper extremity with numbness and tingling. Then she started having severe pain in her right upper back and shoulder and the pain occasionally radiates down her arm into her right middle finger. She is right handed. She describes the pain as a sharp, stabbing pain in certain positions with her shoulder. She states she awakes up at night due to positioning and pain. Pain is relieved a little by application of heat. Sleeping aggravates her pain. Current pain level is 8/10. High pain level is 10/10. Low painlevel is 4/10. She has been doing a home exercise program. She has also been using a home traction unit brought on the internet with initial pain benefit but now with increased pain. She has no history of bladder or bowel incontinence. 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 Acromioclavicular joint hypertrophy with signs of subacromial-subdeltoid bursitis. She has started physical therapy . She states she had some increased pain after the first PT session. She continues to have more pain in the right shoulder. She states she is waiting for blood results from Dr. Cifuentes's office and has not taken any Ibuprofen. She has some celebrex at home that she use to take for knee pain. She has trialed voltaren gel and she has not noticed any pain benefit. Gretel Reyes MD [address] , [address], [place], [address], [facility] 01/10/2016 11:55:32 01/11/2016 text/html She is here for a right shoulder steroid injection under fluoroscopic guidance. Gretel Reyes MD [address] [facility] , [address], [place], [address], [facility] 01/17/2016 10:50:52 02/15/2016 text/html She is here for a follow up after a right shoudler steroid injection under ultrasound guidance. She reports 80% pain benefit with improved range of motion. She is having physical therapy done at [facility] . She is complaining of pain in her neck radiating into left upper back. She states she had trigger point injections in the past with good pain benefit. She has seen Dr. Bridges and he wants to do a steroid injection if she has persistent pain. She is doing physical therapy and feels her neck and upper back pain is aggravated by PT. Gretel Reyes MD [address] [facility] , [address], [place], [address], [facility] - [facility] Management 02/28/2016 10:12:32 OBGyn Episode No OBEpisode recorded.
--- OUTSIDE RECORDS SUMMARY | 2025-07-10 13:12 | XMS_ITS | Patient Health Record ---
Author Organization [facility] Address [address], [place] [id number] Care Team Providers Care Automatic Operator Name Role Phone TAE CIFUENTES Primary Care Provider ALLERGIES Allergen (clinical drug ingredient) Drug/Non Drug Allergy documented on EMR Reaction Allergy Type Onset Date Status metoclopramide Metoclopramide HCl Reglan Drug Allergy Active Medicinal cephalosporin and acting as antibacterial agent (FN) Cephalosporins Unknown Drug Allergy 09/28/2009 Active Iodinated contrast media (substance) Iodinated Diagnostic Agents Unknown Drug Allergy Active REASON FOR REFERRAL Reason 11/28/24 w appt rash on face R21 Referral Organization [facility] Mary hart Referring Provider First Name TAE Referring Provider Last Name ESAU Referring Provider Speciality Internal M edicine Referred Provider DARIN TURNER Referred Provider Specialty Dermatology General Notes Helen JANG P Admin 09:24:20 AM > Faxed medical referral, notes and most recent blood work to [facility] at [phone], Helen JANG P Admin 12/04/2024 10:36:26 AM > referral approved with a start date of today>faxed to [facility]>encounter closed Referral Priority Routine Referral Appointment Date 12/04/2024 Reason M25.561 Referral Organization [facility] As Keniuсергей Referring Provider First Name TAE Referring Provider Last Name ESAU Referring Provider Speciality Internal M edicine Referred Provider TAE LACY Referred Provider Specialty Orthopedic S urgery General Notes Helen JANG P Admin 10:07:58 AM > pt wrote in to let us know she has an appt with Dr Lacy on 12/31/24>faxed insurance referral to [facility] at [phone]>encounter closed Referral Priority Routine Referral Appointment Date 12/31/2024 Reason m17.11 [facility] First Name TAE Referring Provider Last Name STOCKTON Referring Provider Speciality Internal edicine Referred Provider Specialty Physical [facility] General Notes SUHAILHelen P Admin 01:41:43 PM > per incoming document from [facility] they are requesting 26 visits for PT>npi [phone]>dx code is M17.11, SUHAILHelen P Admin 02/27/2025 10:52:12 AM >referral approved and faxed to [facility] at [phone] Referral Priority Routine Referral Appointment Date 02/23/2025 Reason m25.561 Referral Organization [facility] Referring Provider First Name TAE Referring Provider Last Name STOCKTON Referring Provider Speciality Internal edicine Referred Provider LUIS FERNANDO PINEDA Referred Provider [facility] General Notes SUHAILHelen P Admin 10:49:03 AM > per incoming document from [facility] pt had appt on 01/[address] Luis Fernando Pineda>referral was approved and faxed to [facility] at [phone]>encounter closed Referral Priority Routine Referral Appointment Date 01/15/2025 Reason knee pain m25.569 Referral Organization [facility] Referring Provider First Name TAE Referring Provider Last Name STOCKTON Referring Provider Speciality Internal edicine Referred Provider VIRGINIE DIAS General Notes Radha JANGi P Admin 03/2025 10:21:38 AM > Virginie NPI#[id number], [address] [place] [address], [phone] fax# [phone], Rt Knee Pain , SUHAILHelen P Admin 04/16/2025 10:26:30 AM > referral approved and faxed to [phone]>encounter closed Referral Priority Routine Referral Appointment Date 04/15/2025 Referral Organization [facility] Referring Provider First Name TAE Referring Provider Last Name STOCKTON Referring Provider Speciality Internal edicine Referred Provider Specialty Orthopedic S urgery General Notes SUHAIL,Helen P Admin 08/2025 12:08:33 PM > per incoming doc pt has appt on 04/15 with Kamaljit Anthony [phone] at [facility] [place]>right knee pain>6 visits >referral approved and faxed to [phone]>encounter closed Referral Priority Routine Referral Appointment Date 04/15/2025 Reason ZA01.818 Referral Organization [facility] Referring Provider First Name TAE Referring Provider Last Name STOCKTON Referring Provider Speciality Internal edicine Referred Provider Specialty Orthopedic S urgery General Notes Dulce JANG CMA 11:23:28 AM > copied from t/e for this request: Juanita/Dr. Keyana Villatoro , [address] [place] [address], [address]. [address], (p) [phone] (M) [phone], Date of Service: 05/18/25, Diagnosis: Z01.818, w/2 visits , Radha JANGi P Admin 04/28/2025 11:34:28 AM > referral approved and faxed to [phone]>encounter closed Referral Priority Routine Referral Appointment Date 05/18/2025 [facility] Referring Provider First Name TAE Referring Provider Last Name STOCKTON Referring Provider Speciality Internal edicine Referred Provider REBECCA HERNANDEZ Referred Provider Specialty Nephrology General Notes Helen JANG P Admin 01/2025 04:11:01 PM > per incoming document pt had appt with Dr Hernandez on 05/15/25>N18.32>referral approved and faxed to [facility] at [phone]>encounter closed Referral Priority Routine Referral Appointment Date 05/15/2025 Reason m25.561 [facility] Referring Provider First Name TAE Referring Provider Last Name STOCKTON Referring Provider Speciality Internal edicine Referred Organization [facility] Referred Provider Specialty Orthopedic S urgery General Notes Helen JANG P Admin 08/2025 02:12:16 PM > per incoming document pt saw Donavan ARITA [phone] on 04/17/25 for M25.561>fax [phone]>referral approved and faxed>encounter closed Referral Priority Routine Reason M25.561 right knee p ain Referral Organization [facility] Referring Provider First Name TAE Referring Provider Last Name ESAU Referring Provider Speciality Internal M edicine Referred Provider Specialty Orthopedic S urgery General Notes Dulce JANG [employer]IFE 04:35:56 PM > per call to office from [facility]: Magda/[facility]ONNIE called, fax sent to [facility] 06/16/[address] Spencer Rob ., M25.561 right knee pain., Back date to 06/19/25, 12 visits. , (C), [address] , SUHAIL,Helen Cardoza Admin 07/08/2025 10:17:10 AM > referral approved and faxed to [phone]>encounter closed Referral Priority Routine Referral Appointment Date 06/19/2025 MEDICATIONS Medication SIG (Take, Route, Frequency, Duration) Notes Start Date End Date Status Atorvastatin Calcium 40 MG 1 tablet Oral ly Once a day for 90 day(s) 03/26/2025 Active Gabapentin 400 MG TAKE 2 CAPSULES BY M OUTH EVERY DAY for 30 Active ISOtretinoin 10 MG as directed Orally Active Sertraline HCl 50 MG TAKE 1 AND 1/2 TABL ETS BY MOUTH DAILY for 90 Active IMMUNIZATIONS Vaccine Route Administration Date Status Comme nts Moderna COVID-19 mRNA LNP-S PF Unknown 01/07/2021 Admin istered Moderna COVID-19 mRNA LNP-S PF Unknown 01/28/2021 Admin istered Td (Tetanus Diphtheria) Unknown 01/08/2013 Administered SOCIAL HISTORY Tobacco Use: Social History Observation Description Date Details (start date - stop date) Never Smoker NA - NA Sex Assigned At : Social History Observation Description Sex Assigned At Unknown Smoking Question Answer Notes Are you a: never smoker PROBLEMS Problem Type ICD Code Onset Dates Problem Status W/U Status Risk SNOMED Code Notes Problem Neuropathy (G62.9) Active confirmed 386 [id number] Problem Mixed hyperlipidemia (E78.2) Active confirmed 951419253 Problem Aphasia (R47.01) Active confirmed 75636 003 Problem Anxiety (F41.9) Active confirmed 858322 02 Problem Kidney stone (N20.0) Active confirmed 27856343 Problem Primary osteoarthritis of right knee (M17.11) Active confirmed 894590110284138 Problem Facial droop (R29.810) Active confirmed 60472706 Problem Altered mental status, unspecified altered mental status type (R41.82) Active confirmed 332833861 Problem Stage 3a chronic kidney disease (CKD) (N18.31) Active confirmed 517218358 Problem Kidney, medullary sponge (Q61.5) Active confirmed 080387876 VITAL SIGNS Blood pressure diastolic 71 mm Hg 03/16/2025 Height 64.20 in 03/16/2025 Blood pressure systolic 116 mm Hg 03/16/2025 Weight 163 lbs 03/16/2025 BMI 27.80 kg/m2 03/16/2025 Encounters Encounter Location Date Provider Diagnosis [address] [address] 08/25/[address] [address] 10/15/[address] [address] 10/15/[address] [address] 10/15/2024 TAE CANTORFORD Rash R21 [address] [address] 10/17/[address] [address] 10/17/[address] [address] 10/20/[address] [address] 10/20/[address] [address] 10/20/[address] [address] 10/22/[address] [address] 10/22/2024 TAE CANTORFORD Enlarged lymph node R59.9 and Rash R21 [address] [address] 11/02/2024 [facility] [address] [place] [address] 11/02/2024 [facility] [address] [place] [address] 11/03/2024 TAE CIFUENTES Neuropathy G62.9 ; Altered mental status, unspecified altered mental status type R41.82 and Enlarged lymph node R59.9 [facility] [address] [place] [address] 11/13/2024 [facility] [address] [place] [address] 11/25/2024 [facility] [address] [place] [address] 11/25/2024 [facility] [address] [place] [address] 11/25/2024 TAE CANTORFORD Right calf pain M79. 661 [facility] [address] [place] [address], [place] [address] 11/28/2024 [facility] [address] [place] [address] 12/02/2024 TAE CIFUENTES Pain, joint, knee, right M25.561 [facility] [address] [place] [address] 12/04/2024 [facility] [address] [place] [address] 12/04/2024 [facility] [address] [place] [address] 12/04/2024 [facility] [address] [place] [address] 12/17/2024 [facility] [address] [place] [address] 12/17/2024 [facility] [address] [place] [address] 01/15/2025 [facility] [address] [place] [address] 01/15/2025 [facility] [address] [place] [address] 01/15/2025 [facility] [address] [place] [address] 03/16/2025 [facility] Encounter for genera l adult medical examination with abnormal findings Z00.01 ; Kidney stone N20.0 ; Stage 3a chronic kidney disease (CKD) N18.31 ; Kidney, medullary sponge Q61.5 ; Primary osteoarthritis of right knee M17.11 ; Neuropathy G62.9 ; Mixed hyperlipidemia E78.2 and Palpitations R00.[address] [address] 03/16/[address] [address] 03/26/[address] [address] 03/26/[address] [address] 04/13/2025 [facility] Pain, joint, knee, right M25.561 [facility] [address] [address] 04/13/[address] [address] 04/15/[address] [address] 04/15/[address] [address] 04/16/[address] [address] 04/16/[address] [address] 04/16/[address] [address] 04/28/[address] [address] 06/29/[address] [address] 06/30/[address] [address] 07/06/2025 [facility] [address] [place] [address] 07/06/2025 [facility] [address] [place] [address] 07/07/2025 [facility] Encounter Date Diagnosis Assessment Notes Treatment Notes Treatment Clinical Notes Section Notes 03/16/2025 Encounter for general adult medical examination with abnormal findings (ICD-10 - Z00.01) 1. Routine healthcare maintenance: Colonoscopy was just done and we will send for report. Patient has mammogram scheduled for later this month. She is up-to-date with [employer]. Will update fasting blood work 2. Kidney stones: No recent issues. She follows with 3. Stage IIIa chronic kidney disease/medullary sponge kidney: She follows with Dr. Hernandez and recent renal labs have been stable. We will update fasting blood work. She knows to avoid anti-inflammatori es and renal irritants 5. Osteoarthritis right knee: She needs a total knee replacement and may do this in April or later in the fall 6. Neuropathy: Stable on gabapentin. Will continue present dosing 7. Hyperlipidemia: Will recheck profile with nutrition efforts 10/15/2024 Rash (ICD-10 - R21) 1. Rash: Questio n rosacea, question butterfly rash of lupus. Will check sed rate CRP and JUSTINO in the lab. Will trial treatment with doxycycline. If not improving and laboratory studies are unremarkable may involve dermatology 10/22/2024 Rash (ICD-10 - R21) 1. Lymphadenopathy: Appears reactive ? tooth - will coverwith Clindamycin x 1 week given PCN allergy 2. Rash Looking more like Rosacea : Continue hydrocortisone - consider metrogel 10/22/2024 Enlarged lymph node (ICD-10 - R59.9) 1. Lymphadenopathy: Appears reactive ? tooth - will coverwith Clindamycin x 1 week given PCN allergy 2. Rash Looking more like Rosacea : Continue hydrocortisone - consider metrogel 11/03/2024 Neuropathy (ICD-10 - G62.9) 1. Alteration mental status: Cause is unclear. ? syncope ? migraine varant Patient has had extensive PATHOLOGY SECRETARY/TRANSCRIPTIONIST imaging in the last year. Will check laboratory studies to ensure no electrolyte abnormalities. If a recurrent issue would consider an EEG. No signs or symptoms of infection today. 2. Neuropathy: Renewed gabapentin 3. Enlarged lymph node left neck: No real change with clindamycin. She saw dentist and does not have any current issues with her teeth. Will pursue an ultrasound of the soft tissues of the neck. 11/03/2024 Altered mental status, unspecified altered mental status type (ICD-10 - R41.82) 1. Alteration mental status: Cause is unclear. ? syncope ? migraine varant Patient has had extensive PATHOLOGY SECRETARY/TRANSCRIPTIONIST imaging in the last year. Will check laboratory studies to ensure no electrolyte abnormalities. If a recurrent issue would consider an EEG. No signs or symptoms of infection today. 2. Neuropathy: Renewed gabapentin 3. Enlarged lymph node left neck: No real change with clindamycin. She saw dentist and does not have any current issues with her teeth. Will pursue an ultrasound of the soft tissues of the neck. 11/25/2024 Right calf pain (ICD-10 - M79.661) Following 1. Right calf pain: Question Owusu's cyst, question DVT, question underlying arthritis. Check both the Doppler and x-ray of the knee. Further guidance pending these results 12/02/2024 Pain, joint, knee, right (ICD-10 - M25.561) 04/13/2025 Pain, joint, knee, right (ICD-10 - M25.561) 03/16/2025 Kidney stone (ICD-10 - N20.0) 1. Routine healthcare maintenance: Colonoscopy was just done and we will send for report. Patient has mammogram scheduled for later this month. She is up-to-date with [employer]. Will update fasting blood work 2. Kidney stones: No recent issues. She follows with 3. Stage IIIa chronic kidney disease/medullary sponge kidney: She follows with Dr. Hernandez and recent renal labs have been stable. We will update fasting blood work. She knows to avoid anti-inflammatori es and renal irritants 5. Osteoarthritis right knee: She needs a total knee replacement and may do this in April or later in the fall 6. Neuropathy: Stable on gabapentin. Will continue present dosing 7. Hyperlipidemia: Will recheck profile with nutrition efforts 11/03/2024 Enlarged lymph node (ICD-10 - R59.9) 1. Alteration mental status: Cause is unclear. ? syncope ? migraine varant Patient has had extensive PATHOLOGY SECRETARY/TRANSCRIPTIONIST imaging in the last year. Will check laboratory studies to ensure no electrolyte abnormalities. If a recurrent issue would consider an EEG. No signs or symptoms of infection today. 2. Neuropathy: Renewed gabapentin 3. Enlarged lymph node left neck: No real change with clindamycin. She saw dentist and does not have any current issues with her teeth. Will pursue an ultrasound of the soft tissues of the neck. 03/16/2025 Stage 3a chronic kidney disease (CKD) (ICD-10 - N18.31) 1. Routine healthcare maintenance: Colonoscopy was just done and we will send for report. Patient has mammogram scheduled for later this month. She is up-to-date with [employer]. Will update fasting blood work 2. Kidney stones: No recent issues. She follows with 3. Stage IIIa chronic kidney disease/medullary sponge kidney: She follows with Dr. Hernandez and recent renal labs have been stable. We will update fasting blood work. She knows to avoid anti-inflammatori es and renal irritants 5. Osteoarthritis right knee: She needs a total knee replacement and may do this in April or later in the fall 6. Neuropathy: Stable on gabapentin. Will continue present dosing 7. Hyperlipidemia: Will recheck profile with nutrition efforts 03/16/2025 Kidney, medullary sponge (ICD-10 - Q61.5) 1. Routine healthcare maintenance: Colonoscopy was just done and we will send for report. Patient has mammogram scheduled for later this month. She is up-to-date with [employer]. Will update fasting blood work 2. Kidney stones: No recent issues. She follows with 3. Stage IIIa chronic kidney disease/medullary sponge kidney: She follows with Dr. Hernandez and recent renal labs have been stable. We will update fasting blood work. She knows to avoid anti-inflammatori es and renal irritants 5. Osteoarthritis right knee: She needs a total knee replacement and may do this in April or later in the fall 6. Neuropathy: Stable on gabapentin. Will continue present dosing 7. Hyperlipidemia: Will recheck profile with nutrition efforts 03/16/2025 Primary osteoarthritis of right knee (ICD-10 - M17.11) 1. Routine healthcare maintenance: Colonoscopy was just done and we will send for report. Patient has mammogram scheduled for later this month. She is up-to-date with [employer]. Will update fasting blood work 2. Kidney stones: No recent issues. She follows with 3. Stage IIIa chronic kidney disease/medullary sponge kidney: She follows with Dr. Hernandez and recent renal labs have been stable. We will update fasting blood work. She knows to avoid anti-inflammatori es and renal irritants 5. Osteoarthritis right knee: She needs a total knee replacement and may do this in April or later in the fall 6. Neuropathy: Stable on gabapentin. Will continue present dosing 7. Hyperlipidemia: Will recheck profile with nutrition efforts 03/16/2025 Neuropathy (ICD-10 - G62.9) 1. Routine healthcare maintenance: Colonoscopy was just done and we will send for report. Patient has mammogram scheduled for later this month. She is up-to-date with [employer]. Will update fasting blood work 2. Kidney stones: No recent issues. She follows with 3. Stage IIIa chronic kidney disease/medullary sponge kidney: She follows with Dr. Hernandez and recent renal labs have been stable. We will update fasting blood work. She knows to avoid anti-inflammatori es and renal irritants 5. Osteoarthritis right knee: She needs a total knee replacement and may do this in April or later in the fall 6. Neuropathy: Stable on gabapentin. Will continue present dosing 7. Hyperlipidemia: Will recheck profile with nutrition efforts 03/16/2025 Mixed hyperlipidemia (ICD-10 - E78.2) 1. Routine healthcare maintenance: Colonoscopy was just done and we will send for report. Patient has mammogram scheduled for later this month. She is up-to-date with [employer]. Will update fasting blood work 2. Kidney stones: No recent issues. She follows with 3. Stage IIIa chronic kidney disease/medullary sponge kidney: She follows with Dr. Hernandez and recent renal labs have been stable. We will update fasting blood work. She knows to avoid anti-inflammatori es and renal irritants 5. Osteoarthritis right knee: She needs a total knee replacement and may do this in April or later in the fall 6. Neuropathy: Stable on gabapentin. Will continue present dosing 7. Hyperlipidemia: Will recheck profile with nutrition efforts 03/16/2025 Palpitations (ICD-10 - R00.2) 1. Routine healthcare maintenance: Colonoscopy was just done and we will send for report. Patient has mammogram scheduled for later this month. She is up-to-date with [employer]. Will update fasting blood work 2. Kidney stones: No recent issues. She follows with 3. Stage IIIa chronic kidney disease/medullary sponge kidney: She follows with Dr. Hernandez and recent renal labs have been stable. We will update fasting blood work. She knows to avoid anti-inflammatori es and renal irritants 5. Osteoarthritis right knee: She needs a total knee replacement and may do this in April or later in the fall 6. Neuropathy: Stable on gabapentin. Will continue present dosing 7. Hyperlipidemia: Will recheck profile with nutrition efforts PLAN OF TREATMENT Pending Test Test Name Order Date XR Knee Left 2 views 12/02/2024 Mammogram 02/17/2013 CT Abdomen & Pelvis with Oral and IV con trast 05/29/2024 Insurance Providers Payer Name Payer Address Payer Phone Subscriber Number Group Number Insured Name Patient Relationship to Insured Coverage Start Date Coverage End Date [employer] [address] [place] [address] [id number] CHAZ OREILLY Self - patient is the insured MEDICAL (GENERAL) HISTORY Medical History History ICD Code Disease : DVT post op left ankle surgery , Disease : kidney stones, Problems: Kidney stone, Adde d Date: 05/30/2015, Onset Date: 09/28/2009:Active stage 3 a CKD hyperuricosuria Colonoscopy 10/14/24 - int/ext h emorrhoidsaaron'osis- 10 year recall Surgical History Surgery Date(Month/Year) Right ACL tear, Sx_Procedure : arthrosco py 2011 Cholecystitis, Sx_Procedure : Cholecyste ctomy 2000 Appendicitis, Sx_Procedure : Appendectom y 1994 Disease : Right rotator cuff tendonitis/arthritis, Sx_Procedure : surgery Disease : Left ankle ligamen t tear, Sx_Procedure : Left ankle arthroplasty
--- OUTSIDE RECORDS SUMMARY | 2025-07-10 13:13 | XMS_ITS | Clinical Summary ---
Author Organization [facility] Address [address] [place] [address] Care Team Providers Care Bond Clerk Name Role Phone Noe Salcedo MD Primary Care Provider Unavail able Allergies Active Allergy Reactions Criticality Noted Date Comments Cephalosporins Other (See Comments) 11/25/2012 Gadolinium 02/06/2020 Iodinated Contrast Media 02/06/2020 Metoclopramide Anaphylaxis,Other (S ee Comments) High 11/25/2012 Penicillins Other (See Comments) 11/25/2012 Medications Medication Sig Dispensed Refills Start Date End Date Status sertraline (ZOLOFT) 50 MG tablet 0 05/28/2022 Active Active Problems Problem Noted Date Diagnosed Date Effusion of right knee joint 06/06/2022 Instability of right knee joint 06/06/2022 Family History Medical History Relation Name Comments Cancer Brother Relation Name Status Comments Brother Social History Tobacco Use Types Packs/Day Years Used Date Smoking Tobacco: Never Assessed Sex and Gender Information Value Date Recorded Sex Assigned at Not on file Gender Identity Not on file Sexual Orientation Not on file Job Start Date Occupation Industry Not on file Not on file Not on file Last Filed Vital Signs Vital Sign Reading Time Taken Comments Blood Pressure - - Pulse - - Temperature - - Respiratory Rate - - Oxygen Saturation - - Inhaled Oxygen Concentration - - Weight 76.2 kg (168 lb) 06/06/2022 1:50 PM EDT Height 165.1 cm (5' 5 ) 06/06/2022 1:50 PM EDT Body Mass Index 27.96 06/06/2022 1:50 PM EDT Plan of Treatment Health Maintenance Due Date Last Done Comments Hepatitis B Vaccines (1 of 3 - 3-dose series) 1965 Hepatitis C Screening 1965 COVID-19 Vaccine (#1) 05/17/1968 Depression Screening 1979 BMI Counseling 11/14/1985 Preventative Health Evaluation 11/14/1985 DTap / Tdap / Td (1 - Tdap) 11/14/1986 Cervical Cancer Screening (P ap Smear) 11/14/1988 Colon Cancer Screening (Colonoscopy) 11/14/2012 Breast Cancer Screening (Mammogram) 11/14/2017 Shingrix-Zoster Vaccine (1 of 2) 11/14/2017 Influenza Vaccine (#1) 2025 Pneumococcal Vaccine Aged Out No long er eligible based on patient's age to complete this topic RSV Ped < 20 months Aged Out No longe r eligible based on patient's age to complete this topic Care Teams Bond Clerk Relationship Specialty Start Date End Date Noe Salcedo MD PCP - General Internal Medicine 08/22/16
--- OUTSIDE RECORDS SUMMARY | 2025-07-10 13:13 | XMS_ITS | Clinical Summary ---
Author Organization [facility] Address [address] [place] [address] Phone Care Team Providers Care Rotating Field Assembler Name Role Phone Noe Salcedo MD Primary Care Provider [phone] Allergies Active Allergy Reactions Criticality Noted Date Comments Allergen Nyr-Ujkub-Sdeyc Bee 021 Amoxicillin 08/26/2021 Cephalosporins 08/26/2021 Iodinated Contrast Media 08/26/2021 Penicillins 08/26/2021 Metoclopramide Hcl 08/26/2021 Medications sertraline (ZOLOFT) 25 MG tablet Take 25 mg by mouth daily. Active nortriptyline (PAMELOR) 25 MG capsule Take 1 capsule (25 mg total) by mouth nightly at bedtime. 90 capsule 3 11/29/2023 Active Active Problems Problem Noted Date Diagnosed Date Facial droop 09/25/2023 Gastrocnemius equinus of left lower extremity Posterior tibial tendinitis of left lower extrem ity 08/26/2021 Encounters Date Type Department Care Team Description 04/15/2025 2:45 PM EDT Office Visit [facility] [address] [place] [id number] Kamaljit Anthony PA-C Primary osteoarthritis of right knee (Primary Dx); Synovial cyst of right popliteal space; History of repair of ACL 04/15/2025 Ancillary Orders [facility] [address] [place] [address] Cyndee Cotter MD 04/13/2025 - 04/13/2025 11:59 PM EDT Hospital Encounter [facility] [address] [place] [address] Unknown, Cyndee, Discharge Disposition: Home or Self Care from Last 3 Months Social History Tobacco Use Types Packs/Day Years Used Date Smoking Tobacco: Never Smokeless Tobacco: Never Tobacco Cessation:Counseling Given: Not Answered Alcohol Use Standard Drinks/Week Comments Not Currently [...] on file Sexual Orientation Not on file Last Filed Vital Signs Vital Sign Reading Time Taken Comments Blood Pressure 112/57 09/26/2023 2:52 PM EST Pulse 99 09/26/2023 2:52 PM EST Temperature 36.7 C (98 F) 09/26/2023 2:52 PM EST Respiratory Rate 16 09/26/2023 2:52 PM EST Oxygen Saturation 94% 09/26/2023 2:52 PM EST Inhaled Oxygen Concentration - - Weight 75.8 kg (167 lb) 11/10/2023 2:37 PM EST Height 165.1 cm (5' 5 ) 11/10/2023 2:37 PM EST Body Mass Index 27.79 11/10/2023 2:37 PM EST Plan of Treatment Health Maintenance Due Date Last Done Comments Adult Td,Tdap Booster 1965 DEPRESSION SCREENING 1979 HEPATITIS C SCREENING 11/14/1985 HIV ONE-TIME SCREENING (18-6 5 YEARS) 11/14/1985 PAP SMEAR 11/14/1988 MAMMOGRAM 2007 COLOGUARD 11/14/2012 COLONOSCOPY 11/14/2012 COLORECTAL CANCER SCREENING 11/14/2012 FIT TEST 11/14/2012 FOBT 11/14/2012 SIGMOIDOSCOPY 11/14/2012 VIRTUAL COLONOSCOPY 11/14/2012 PNEUMOCOCCAL VACCINES (50+ years) (1 of 1 - PCV) 11/14/2017 ZOSTER VACCINES (1 of 2) 11/14/2017 INFLUENZA VACCINE (#1) 2025 , 06/24/2019, 07/19/2018 COVID-19 VACCINE (3 - 2024-2 6 season) 2025 01/28/2021, 12/31/2020 SCREENING FOR DIABETES 09/24/2026 , 09/24/2023 LIPID PANEL 09/25/2028 09/25/2023, 01/09/2023 RSV VACCINE (1 - 1-dose 75+ series) 11/14/2042 SMOKING STATUS SCREENING (On ce After 26 Yrs) Completed 08/26/2021 HEPATITIS A VACCINES Aged Out No long er eligible based on patient's age to complete this topic HIB VACCINES Aged Out No longer eligi ble based on patient's age to complete this topic MENINGOCOCCAL VACCINES (ACWY) Aged Out No longer eligible based on patient's age to complete this topic MENINGOCOCCAL VACCINES (B) Aged Out N o longer eligible based on patient's age to complete this topic Medical Devices Not on file Procedures Procedure Name Priority Date/Time Associated Diagnosis Comments XR LOWER EXTREMITY OUTSIDE (NO INTERPRETATION) Routine 04/13/2025 12:00 AM EDT LIPID PANEL STAT 09/25/2023 3:55 PM EST from Last 3 Months or Most Recently Relevant to Health Maintenance Results * XR Lower Extremity Outside (No Interpretation) (04/13/2025 12:00 AM EDT) Narrative SYSTEMGENERATED, DOCUMENTATION - 04/15/2025 1:41 PM EDT This study is for PACS storage only and not for interpretation. us Unknown Unknown MD [facility] W/OUT INT ERPRETATION Final Result * (ABNORMAL) Lipid panel (09/25/2023 3:55 PM EST) HDL 37 35 - 100 mg/dL [facility] CHOLESTEROL 298(H) <200 mg/dL [facility] TRIGLYCERIDES 208(H) 40 - 150 mg/dL [facility] LDL 219(H) 50 - 129 mg/dL [facility] CARDIAC RISK RATIO 8.1(H) 0.0 - 5.0 [facility] NON-HDL CHOLESTEROL 261 mg/dL [facility] Comment:NCEP ATP III guideli andrea suggest a non-HDL cholesterol goal 30 mg/dl higher than the patient-specific LDL goal. Blood 09/25/2023 3:55 PM EST 09/25/2023 4:00 PM EST us Harley Cisneros [facility] BLOOD ORDERABLES Final R esult [address] [id number] from Last 3 Months or Most Recently Relevant to Health Maintenance Insurance [facility] INS[facility]ANCE Care Teams Rotating Field Assembler Relationship Specialty Start Date End Date Noe Salcedo MD [address] [place] [id number] PCP - General Internal Medicine 08/29/21 Additional Source Comments The information contained in this document represents components of the legal health record. It is not the complete legal health record.[facility]
--- OUTSIDE RECORDS SUMMARY | 2025-07-10 13:13 | XMS_ITS | Encounter Summary ---
Author Organization [facility] Address [address] [place] [address] Phone Care Team Providers Care Transplanter Orchid Name Role Phone Noe Salcedo MD Primary Care Provider [phone] Encounter Details Date Type Department Care Team (Late st Contact Info) Description 09/24/2023 Procedure Pass [facility] [place], Main [address] [place] [address] Social History Tobacco Use Types Packs/Day Years [...] 2:29 PM EST Yazmin Pelletier RN * [place] Suicide Severity Rating Scale (Screener/Recent Self-Report) Question [...] documented as of this encounter Care Teams Transplanter Orchid Relationship Specialty Start Date End Date Noe Salcedo MD [address] [place] [address] PCP - General Internal Medicine 08/29/21 documented as of this encounter Additional Source Comments The information contained in this document represents components of the legal health record. It is not the complete legal health record.[facility]
--- OUTSIDE RECORDS SUMMARY | 2025-07-10 13:14 | XMS_ITS | Clinical Summary ---
Author Organization [facility] Address [address] [place] [address] Phone Care Team Providers Care Business Intelligence Director Name Role Phone Noe Salcedo MD Primary Care Provider [phone] Allergies Active Allergy Reactions Criticality Noted Date Comments Amoxicillin Rash Medium 10/06/2024 Bee Venom Protein (Honey Bee) Anaphylaxis High 10/06 Cephalosporins Rash High 10/06/2024 Iodinated Contrast Media Anaphylaxis High 10/06/2024 Metoclopramide Hcl Anaphylaxis High 10/06/2024 Medications sertraline (ZOLOFT) 50 mg tablet Take 1 tablet (50 mg total) by mouth 1 (one) time each day. Active Surgical History Surgery Date Site/Laterality Comments SHOULDER SURGERY PROCEDURE:SHOULDER SURGERY COLONOSCOPY APPENDECTOMY ANKLE SURGERY Left KNEE SURGERY Right CHOLECYSTECTOMY Medical History Medical History Date Comments Kidney damage DX:Kidney damage Kidney stones Acute migraine Family History Medical History Relation Name Comments Cancer Brother Relation Name Status Comments Brother Social History Tobacco Use Types Packs/Day Years Used Date Smoking Tobacco: Never Smokeless Tobacco: Never Tobacco Cessation:Counseling Given: Not Answered Alcohol Use Standard Drinks/Week Comments Never 0 (1 standard drink = 0.6 oz pur e alcohol) Interpersonal Safety Answer Date Record ed Physical Abuse Unrecognized value 10/14/2024 Verbal Abuse Unrecognized value 10/14/2024 Comments Unknown Sex and Gender Information Value Date Recorded Sex Assigned at Female 10/14/2024 8:18 AM EST Legal Sex Female 9:16 PM EST Gender Identity Female 10/14/2024 8:18 AM EST Sexual Orientation Straight 10/14/2024 8: 18 AM EST Obstetrics History Last Filed Vital Signs Vital Sign Reading Time Taken Comments Blood Pressure 121/85 10/14/2024 8:33 AM EST Pulse 64 10/14/2024 8:33 AM EST Temperature 36.3 C (97.4 F) 10/14/2024 8:13 AM EST Respiratory Rate 16 10/14/2024 8:33 AM EST Oxygen Saturation 98% 10/14/2024 8:33 AM EST Inhaled Oxygen Concentration - - Weight 68.9 kg (152 lb) 10/14/2024 7:06 AM EST Height 165.1 cm (5' 5 ) 10/14/2024 7:06 AM EST Body Mass Index 25.29 10/14/2024 7:06 AM EST Plan of Treatment Health Maintenance Due Date Last Done Comments Breast Cancer Screening 1965 DTaP,Tdap,and Td Vaccines (1 - Tdap) 11/14/1986 Hepatitis B Vaccines (1 of 3 - 19+ 3-dose series) 11/14/1986 Cervical Cancer Screening: Pap Smear 11/14/1988 Pneumococcal Vaccine: 50+ Years (1 of 1 - PCV) 11/14/2017 Zoster Vaccines (1 of 2) 11/14/2017 HIV Screening 08/12/2022 Hepatitis C Screening 08/12/2022 Social Influencers of Health Screening 08/12/2022 Depression Screening 09/10/2024 COVID-19 Vaccine ( season) 2025 01/28/2021, 12/31/2020 Influenza Vaccine (#1) 2025 , 06/27/2019, 06/24/2019, Additional history exists Cholesterol Screening (Lipid Panel) 09/25/2028 09/25/2023 Colorectal Cancer Screening: Colonoscopy 10/14/2034 10/14/2024, 04/11/2018 RSV Immunization Adult Patients (1 - 1-dose 75+ series) 11/14/2042 HIB Vaccines Aged Out No longer eligi ble based on patient's age to complete this topic HPV Vaccines Aged Out No longer eligi ble based on patient's age to complete this topic Hepatitis A Vaccines Aged Out No long er eligible based on patient's age to complete this topic IPV Vaccines Aged Out No longer eligi ble based on patient's age to complete this topic MMR Vaccines Aged Out No longer eligi ble based on patient's age to complete this topic Meningococcal ACWY Vaccine Aged Out N o longer eligible based on patient's age to complete this topic Meningococcal B Vaccine Aged Out No l onger eligible based on patient's age to complete this topic RSV Immunization Patients Under 20 months Aged Out No longer eligible based on patient's age to complete this topic Varicella Vaccines Aged Out No longer eligible based on patient's age to complete this topic Procedures Procedure Name Priority Date/Time Associated Diagnosis Comments COLONOSCOPY Routine 10/14/2024 8:12 AM EST Hemorrhage of anus and rectum from Last 3 Months or Most Recently Relevant to Health Maintenance Results * COLONOSCOPY Anesthesia - MAC; [facility] ENDOSCOPY (10/14/2024 8:12 AM EST) Anatomical Region Laterality Modality Other 10/14/2024 7:52 AM EST Impressions 10/14/2024 8:14 AM EST - The examined portion of the ileum was normal. - Diverticulosis in the sigmoid colon. - Non-bleeding internal hemorrhoids. - The examination was otherwise normal on direct and retroflexion views. - No specimens collected. Recommendation: - Discharge patient to home. - High fiber diet. - Continue present medications. - Repeat colonoscopy in 10 years for surveillance. - Return to GI office as previously scheduled. Narrative 10/14/2024 8:14 AM EST [facility] GI Patient Name: Jess Quach Procedure Date: 10/14/2024 7:52 AM Date of : 1965 Age: 58 Room: ROOM 14 Gender: Female Note Status: Finalized Attending MD: Marc Le MD, Procedure Date No Time: 10/14/2024 Procedure: Colonoscopy Indications: Rectal bleeding Providers: Marc Le MD Referring MD: Marc Le MD Medicines: Monitored Anesthesia Care Complications: No immediate complications. Estimated Blood Loss: Estimated blood loss: none. Procedure: Pre-Anesthesia Assessment: - ASA Grade Assessment: II - A patient with mild systemic disease. - After reviewing the risks and benefits, the patient was deemed in satisfactory condition to undergo the procedure. After I obtained informed consent, the scope was passed under direct vision. Throughout the procedure, the patient's blood pressure, pulse, and oxygen saturations were monitored continuously.The Olympus Pediatric Colonoscope was introduced through the anus and advanced to the terminal ileum, with identification of the appendiceal orifice and IC valve. The colonoscopy was performed without difficulty. The patient tolerated the procedure well. The quality of the bowel preparation was good. Findings: The terminal ileum appeared normal. A few small-mouthed diverticula were found in the sigmoid colon. Non-bleeding internal hemorrhoids were found during retroflexion. The hemorrhoids were small. The exam was otherwise without abnormality on direct and retroflexion views. Procedure Code(s): --- Professional --- 64352, Colonoscopy, flexible; diagnostic, including collection of specimen(s) by brushing or washing, when performed (separate procedure) Diagnosis Code(s): --- Professional --- K62.5, Hemorrhage of anus and rectum CPT copyright 2020 [employer] [place] [employer]. All rights reserved. The codes documented in this report are preliminary and upon equal opportunity assistant review may be revised to meet current compliance requirements. Marc Le MD 10/14/2024 8:13:44 AM This report has been signed electronically.Marc Le MD Number of Addenda: 0 Note Initiated On: 10/14/2024 7:52 AM Scope In: Scope Out: Endoscopy Department at [facility] - [address] [place] [id number] Procedure Note Marc Le MD - 10/14/2024 [facility] GI Patient Name: Jess Quach Procedure Date: 10/14/2024 7:52 AM Date of : 1965 Age: 58 Room: ROOM 14 Gender: Female Note Status: Finalized Attending MD: Marc Le MD, Procedure Date No Time: 10/14/2024 Procedure: Colonoscopy Indications: Rectal bleeding Providers: Marc Le MD Referring MD: Marc Le MD Medicines: Monitored Anesthesia Care Complications: No immediate complications. Estimated Blood Loss: Estimated blood loss: none. Procedure: Pre-Anesthesia Assessment: - ASA Grade Assessment: II - A patient with mild systemic disease. - After reviewing the risks and benefits, thepatient was deemed in satisfactory condition to undergo the procedure. After I obtained informed consent, the scope was passed under direct vision. Throughout theprocedure, the patient's blood pressure, pulse, and oxygen saturations were monitored continuously.The Olympus Pediatric Colonoscope was introduced through theanus and advanced to the terminal ileum, with identification of the appendiceal orifice and IC valve. The colonoscopy was performed without difficulty. The patient tolerated the procedurewell. The quality of the bowel preparation was good. Findings: The terminal ileum appeared normal. A few small-mouthed diverticula were found in the sigmoid colon. Non-bleeding internal hemorrhoids were found during retroflexion. The hemorrhoids were small. The exam was otherwise without abnormality ondirect and retroflexion views. Procedure Code(s): --- Professional --- 90727, Colonoscopy, flexible; diagnostic, including collection of specimen(s) by brushing or washing,when performed (separate procedure) Diagnosis Code(s): --- Professional --- K62.5, Hemorrhage of anus and rectum CPT copyright 2020 [employer] [place] [employer]. All rights reserved. The codes documented in this report are preliminary and upon equal opportunity assistant reviewmay be revised to meet current compliance requirements. Marc Le MD 10/14/2024 8:13:44 AM This report has been signed electronically.Marc Le MD Number of Addenda: 0 Note Initiated On: 10/14/2024 7:52 AM Scope In: Scope Out: Endoscopy Department at [facility] - [address] [place] [id number] IMPRESSION: - The examined portion of the ileum was normal. - Diverticulosis in the sigmoid colon. - Non-bleeding internal hemorrhoids. - The examination was otherwise normal on directand retroflexion views. - No specimens collected. Recommendation: - Discharge patient to home. - High fiber diet. - Continue present medications. - Repeat colonoscopy in 10 years forsurveillance. - Return to GI office as previously scheduled. us Marc Le MD GI~PROCEDURE ORDERABLES Final Result from Last 3 Months or Most Recently Relevant to Health Maintenance Insurance [facility] Care Teams Business Intelligence Director Relationship Specialty Start Date End Date Noe Salcedo MD [address] [place] [id number] PCP - General Internal Medicine 08/22/16
--- OUTSIDE RECORDS SUMMARY | 2025-07-10 13:14 | XMS_ITS | Encounter Summary ---
Author Organization [facility] Address [address] [place] [address] Phone Care Team Providers Care Biology Tutor Name Role Phone Noe Salcedo MD Primary Care Provider [phone] Encounter Details Date Type Department Care Team (Late st Contact Info) Description 09/24/2023 Procedure Pass [facility] [place] Emergency Radiology, Main [address] [place] [address] Social History Tobacco Use Types Packs/Day Years [...] 2:29 PM EST Yazmin Pelletier RN * [place] Suicide Severity Rating Scale (Screener/Recent Self-Report) Question [...] documented as of this encounter Care Teams Biology Tutor Relationship Specialty Start Date End Date Noe Salcedo MD [address] [place] [address] PCP - General Internal Medicine 08/29/21 documented as of this encounter Additional Source Comments The information contained in this document represents components of the legal health record. It is not the complete legal health record.[facility]
== END 2025-07-10 12:25 | disposition home or self-care (01) ==
PROVIDERS: Physician Assistant Medical; Emergency Provider Emergency Medicine; PCP Internal Medicine
DX: M79.89 Other specified soft tissue disorders (principal); N18.9 Chronic kidney disease, unspecified; Z86.718 Personal history of other venous thrombosis and embolism; Z96.651 Presence of right artificial knee joint
CPT/HCPCS: 36415; 80053; 83735; 85025; 93971; 99282; 99284

== ENCOUNTER → 2025-07-10 11:09 | Outpatient (BNV) | payer BC, SELFPAY | PROVIDERS: Emergency Provider Emergency Medicine; PCP Internal Medicine; Visit Provider Radiology Diagnostic Radiology | DX: M79.661 Pain in right lower leg (principal) | CPT/HCPCS: 93971 ==